=== PATIENT | male | born 1960 | race Caucasian/White ===

== ENCOUNTER 2022-07-01 10:42 | Inpatient (IN) | payer OTHER ==
[~2022-07-01] VITALS: Ht 177 cm; Wt 76.6 kg
[2022-07-01] MEDS ORDERED: EPTIFIBATIDE BOLUS 0 ML IV ONE (11:01)
[2022-07-01] MEDS ORDERED: EPTIFIBATIDE DRIP 0 ML IV ONE (11:01)
[2022-07-01] MEDS ORDERED: LIDOCAINE 1% INJ 20 ML VIAL ONE (11:01)
[2022-07-01] MEDS ORDERED: HEParin (CATH LAB) 2,000 ML IV ONE (11:01)
[2022-07-01] MEDS ORDERED: HEParin 1000 UNIT/ML (10ML VIAL) FOR BOLUS ONE (11:01)
[2022-07-01] MEDS ORDERED: NITRO DRIP 25000 MCG/D5W 0 ML IV ONE (11:02)
--- NOTE | 2022-07-01 11:29 | Consultation-Cardiology ---
HPI-Cardiology Cardiology Consultation: Date of Consultation 07/01/22 Date of Admission Attending Physician Admitting Physician Admitting Physician: Svetlana Burciaga MD Attending Physician: Svetlana Burciaga MD Consulting Physician Tod SANFORD MD HPI: Time Seen by a Provider: 10:50 Chief Complaint: Postcardiac arrest This is a 62-year-old gentleman Who [place]. Apparently patient hit his face and was bleeding as well. According to EMS minimum downtime. Initial rhythm was ventricular fibrillation and he was shocked to sinus tachycardia. ROSC achieved. No family available. Not much History available. And route EMS EKG showed possible ST elevation in lead V2 and V3 therefore patient was accepted directly to the [facility]. Patient was intubated in the field Review of Systems-Cardiology Review of Systems Constitutional: As described under HPI Eyes: As described under HPI Ears/Nose/Throat: As described under HPI Respiratory: As described under HPI Cardiovascular: other (Cardiac) Gastrointestinal: As described under HPI Genitourinary: As described under HPI Musculoskeletal: As describe under HPI Skin: As described under HPI Psychiatric/Neurological: As described under HPI Hematologic: As described under HPI OKZ-Ehixtq-Kmtblq Hx Patient Social History Alcohol Use?: Yes Past Medical History PMH As described under Assessment. Allergies and Home Medications Patient Home Medication List Home Medication List Reviewed: Yes Exam Physical Exam Patient was intubated/ventilated. Dried blood was noted on the face. Chest examination shows bilateral breath sounds. Cardiac examination showed tachycardia Good peripheral pulses Labs Laboratory Tests Test 07/01/22 11:23 Range/Units White Blood Count 12.9 H 4.3-11.0 10^3/uL Red Blood Count 3.62 L 4.30-5.52 10^6/uL Hemoglobin 12.8 L 13.3-17.7 g/dL Hematocrit 37 L 40-54 % Mean Corpuscular Volume 102 H 80-99 fL Mean Corpuscular Hemoglobin 35 H 25-34 pg Mean Corpuscular Hemoglobin Concent 35 32-36 g/dL Red Cell Distribution Width 12.4 10.0-14.5 % Platelet Count 145 130-400 10^3/uL Mean Platelet Volume 9.8 9.0-12.2 fL Immature Granulocyte % (Auto) 1 % Neutrophils (%) (Auto) 89 H 42-75 % Lymphocytes (%) (Auto) 6 L 12-44 % Monocytes (%) (Auto) 4 0-12 % Eosinophils (%) (Auto) 0 0-10 % Basophils (%) (Auto) 0 0-10 % Neutrophils # (Auto) 11.4 H 1.8-7.8 10^3/uL Lymphocytes # (Auto) 0.8 L 1.0-4.0 10^3/uL Monocytes # (Auto) 0.5 0.0-1.0 10^3/uL Eosinophils # (Auto) 0.0 0.0-0.3 10^3/uL Basophils # (Auto) 0.1 0.0-0.1 10^3/uL Immature Granulocyte # (Auto) 0.1 0.0-0.1 10^3/uL ECG Impression ECG Initial ECG Rhythm: V.Fib EKG : Rhythm: S.Tach Comment LBBB Diagnosis/Problems Diagnosis/Problems (1) Ventricular fibrillation Status: Acute A/P-Cardiology Assessment/Admission Diagnosis Ventricular fibrillation, ROSC achieved. Patient is intubated/ventilated Possible STEMI Witnessed arrest. Ventricular fibrillation. Single shock. ROSC achieved. In route EMS EKG showed possible ST elevation in leads V2 and V3 therefore patient was brought directly to the [facility]. Coronary angiography did not show any occlusive coronary artery disease. Normal LV function. Aortogram did not show any aortic dissection. No antiplatelet or anticoagulation was given since the patient was bleeding from his face which was likely due to trauma from collapsing. Patient was already intubated/ventilated. Plan ICU admission. Stat CTA PE protocol Hypothermic protocol All labs were ordered Telemetry ICU, Stat echocardiogram, Patient will likely require an ICD, this decision will be based on neurological recovery. Critically ill patient Tod SANFORD MD July 01, 2022 11:29
[2022-07-01 11:33] LABS: BASOPHILS # (AUTO) 0.1 10^3/uL (0.0-0.1); BASOPHILS % (AUTO) 0 % (0-10); EOSINOPHILS % (AUTO) 0 % (0-10); HEMATOCRIT 37 % (40-54); HEMOGLOBIN 12.8 g/dL (13.3-17.7); LYMPHOCYTES # (AUTO) 0.8 10^3/uL (1.0-4.0); LYMPHOCYTES % (AUTO) 6 % (12-44); MEAN CORPUSCULAR HEMOGLOBIN 35 pg (25-34); MEAN CORPUSCULAR HGB CONC 35 g/dL (32-36); MEAN CORPUSCULAR VOLUME 102 fL (80-99); MEAN PLATELET VOLUME 9.8 fL (9.0-12.2); MONOCYTES # (AUTO) 0.5 10^3/uL (0.0-1.0); MONOCYTES % (AUTO) 4 % (0-12); NEUTROPHILS # (AUTO) 11.4 10^3/uL (1.8-7.8); NEUTROPHILS % (AUTO) 89 % (42-75); PLATELET COUNT 145 10^3/uL (130-400); WHITE BLOOD COUNT 12.9 10^3/uL (4.3-11.0)
[2022-07-01] MEDS ORDERED: PROPOFOL DRIP (ICU) 100 ML IV ONE ×2 (11:36→18:16)
--- NOTE | 2022-07-01 11:40 | Coronary Angiography Report ---
Coronary Angiography Report DATE OF PROCEDURE: 07/01/22 INDICATION: Postcardiac arrest, Possible ACS PREOPERATIVE DIAGNOSIS: Postcardiac arrest, possible ACS POSTOPERATIVE DIAGNOSIS: Ventricular fibrillation, normal coronaries HISTORY: This is a 62-year-old gentleman who [place] and was found to be in ventricular fibrillation. Brief downtime According to the EMS. Defibrillated to sinus tachycardia. ROSC achieved. In route, EMS EKG shows possible ST elevation in leads V2 and V3. Patient was accepted directly to the [facility]. Patient was intubated in the field. PROCEDURES PERFORMED: 1.Coronary angiography. 2.Left heart catheterization. 3. Thoracic aortogram: Medical necessity: Postcardiac arrest to rule out aortic dissection. COMPLICATIONS: None. SPECIMENS: None. ESTIMATED BLOOD LOSS: 10 mL ANESTHESIA: Conscious sedation ANTICOAGULATION: None CONTRAST: 130 cc FLUOROSCOPY: 4.5 minutes FLOUROSCOPY DOSE: 580 mgy PROCEDURE DETAILS: The patient is a 62 male and was brought to the laborer [facility] Directly due to V-fib arrest. Due to an emergency no informed consent was taken. No family available. The patient was draped and prepped in the usual sterile fashion. Access was gained in the right Femoral artery with a 6 Romanian sheath. Coronary angiography and left heart catheterization was performed with the EBU guide catheter, JR4 diagnostic catheter, pigtail. FINDINGS: 1.Left main: Patent 2.LAD: Patent. 3.Left circumflex artery: Patent 4.RCA: Patent 5.Left heart catheterization: Normal LV function with no wall motion abnormalities. No gradients across the aortic valve. Aortic pressure 124/80 mmHg. LV pressure 127/5 mmHg. LVEDP 13 mmHg. 6. Thoracic aortogram: Medical necessity to rule out aortic dissection in a patient with ventricular fibrillation arrest and normal coronaries. No proximal aneurysm or dissection noted. No occlusion noted of the great arteries. CONCLUSIONS: Post V-fib arrest. Normal coronaries. Admit to ICU, stat CT to rule out pulmonary embolism. Hypothermic protocol. Stat echocardiogram. Telemetry ICU Future ICD implantation based on neurological recovery. May Novak MD, FACP, FACC, [facility] Interventional Cardiology Tod NOVAK MD July 01, 2022 11:40
[2022-07-01 11:48] LABS: ALBUMIN 3.5 GM/DL (3.2-4.5); CHLORIDE 103 MMOL/L (98-107); POTASSIUM 3.1 MMOL/L (3.6-5.0); SODIUM 139 MMOL/L (135-145)
[2022-07-01 11:49] LABS: CALCIUM 7.9 MG/DL (8.5-10.1)
[2022-07-01 11:50] LABS: GLUCOSE 136 MG/DL (70-105)
[2022-07-01 11:51] LABS: CARBON DIOXIDE 21 MMOL/L (21-32); PROTHROMBIN TIME PATIENT 13.4 SEC (12.2-14.7)
[2022-07-01 11:52] LABS: BILIRUBIN,TOTAL 0.6 MG/DL (0.1-1.0)
[2022-07-01 11:54] LABS: ALKALINE PHOSPHATASE 113 U/L (40-136); GFR ESTIMATED 105
[2022-07-01 11:55] LABS: BUN/CREATININE RATIO 10
[2022-07-01 11:57] LABS: ALANINE AMINOTRANSFERASE 49 U/L (0-55); MAGNESIUM 1.2 MG/DL (1.6-2.4)
[2022-07-01 12:01] LABS: FIBRIN DEGRADATION PRODUCTS 5.82 UG/ML (0.00-0.49)
[2022-07-01 12:05] LABS: BAND NEUTROPHILS 2 %; BASOPHILS % (MANUAL) 0 %; EOSINOPHILS % (MANUAL) 0 %; LYMPHOCYTES % (MANUAL) 9 %; MONOCYTES % (MANUAL) 2 %; NEUTROPHILS % (MANUAL) 87 %
[2022-07-01] MEDS ORDERED: HYDROmorphone 2 MG/ML VIAL (DILAUDID) ONE (12:05)
--- NOTE | 2022-07-01 12:07 | Tele-ICU Consult ---
History of Present Illness History of Present Illness Date Seen by Provider: July 01, 2022 Time Seen by Provider: 12:07 Date of Admission History of Present Illness (Tele-ICU Physician , consultation as per request of PCP Service provided via interactive audio and video telecommunications E-CARE system to a patient admitted to ICU bed in [facility]. Available chart/ vitals / labs / Images reviewed H&P is from ER notes Patient's information available about PMH, Shx, Fhx allergy reviewed inEMR. ROS as per chart and RN report Now in ICU, hemodynamically stable Video assessment done using teleICU camera, rest of exam as per RN Discussed with RN. Hospital course: - post card arrest , ETT , cath - clear A/P Cardiac arrest outside of hospital - Initial rhythm was V fib and he was shocked to sinus tachycardia ( ROSC time not clear , presumed short - possible ST elevation in lead V2 and V3 therefore patient was accepted directly to the Delivery Director --> s/p cath - clear coronary -No antiplatelet or anticoagulation was given since the patient was bleeding from his face - etiology of arrest not clear- ACS r/out , ECHO pending , lytes checked - other possible causes ? PE , ? PTX , Sz =CTA chest pending Acute resp failure post arrest - intubated 07/01 on the fild - check cxr , Ct , abg S.p fall post arrest - CT head ordered Encephalopathy - will scan head to r/o intracrania reason for collapse , and follow trauma extent as a result of fall - on propofol now , will try to stop after CT done to assess refelxes / respond - will maintain active normothermia (?37.5C) fluid resuscitation follow lytes monitor for Sz BS 140-180 Plans in collaboration with bedside consultants and IM MDs. Discussed with RN to reach out if any questions or concerns A total of 33 minutes of critical care time was devoted to this patient today, required to treat and/or prevent further deterioration of critical care conditi on ( as above ) . I am remotely monitoring this patient from another state. I am unable to do the bedside exam, and history/physical and pertinent information is taken from other notes in the computer and bedside staff. . Allergies and Home Medications Allergies Coded Allergies: No Allergy Information Available (Unverified , 07/01/22) Past Medical/Social/Family Hx Patient Social History Alcohol Use?: Yes Review of Systems Constitutional: see HPI Focused Exam Height, Weight, BMI Height: '" Weight: lbs. oz. kg; BMI Method: Exam Exam Patient acknowledged, consented, and participated in this virtual visit which was conducted using real time audio/video Height & Weight Height: '" Weight: lbs. oz. kg; BMI Method: General Appearance: Other Results Lab Laboratory Tests 07/01/22 11:23 Assessment/Plan Assessment/Plan 1 QIANA STRONG MD July 01, 2022 12:07
--- NOTE | 2022-07-01 12:38 | Diagnostic Imaging Report ---
EXAMINATION: CT head without contrast. TECHNIQUE: Multiple contiguous axial images were obtained through the brain without the use of intravenous contrast. All CT scans use one or more of the following dose optimizing techniques: automated exposure control, MA and/or KvP adjustment based on patient size and exam type or iterative reconstruction. HISTORY: Cardiac arrest COMPARISON: None available. FINDINGS: The ventricles and sulci are normal. No abnormal attenuation of brain parenchyma is present. No acute intracranial hemorrhage or abnormal extra-axial fluid collections are present. No hyperdense vessel. The calvarium is intact. The mastoid air cells are clear. Mucosal thickening of the paranasal sinuses. The orbits are normal. IMPRESSION: 1. No acute intracranial abnormality. Dictated by: Dictated on workstation # [id number]
--- NOTE | 2022-07-01 13:01 | Diagnostic Imaging Report ---
INDICATION: Status post cardiac arrest. No prior studies are available for comparison. ET tube has tip above the landen. The pulmonary arterial system is without evidence of thromboembolism. Pulmonary arterial system is without evidence of central, lobar or segmental filling defects. There appears to be complete collapse of the left lower lobe. There is mucus plugging involving left lower lobe lobar and segmental bronchi. No pericardial or pleural fluid is identified. Minimal infiltrate in the right upper and right lower lobe is noted. The thoracic aorta is normal caliber. There is no dissection. Upper abdomen demonstrates hepatic steatosis. IMPRESSION: 1. No evidence of pulmonary embolism or acute aortic disease. 2. Left lower lobe complete atelectasis due to mucus plugging. 3. Hepatic steatosis. Dictated by: Dictated on workstation # [id number]
--- NOTE | 2022-07-01 13:01 | Diagnostic Imaging Report ---
Indication: Cardiac arrest. Time of Exam: 12:42 PM ET tube has tip just above the landen. NG tube passing the stomach. There appears to be significant atelectasis of the left lower lobe with volume loss in the left hemithorax. Right lung is clear. External pacer overlies right hemithorax. No significant effusion is seen. Impression: Left lower lobe atelectasis. Dictated by: Dictated on workstation # [id number]
[2022-07-01] MEDS: MAGNESIUM 1 GM/100 ML IVPB 100 ML IV SCH ×4 (13:04→15:52)
[2022-07-01] MEDS: POTASSIUM CL 10MEQ/50ML IVPB 50 ML IV SCH ×4 (13:06→15:52)
[2022-07-01 13:15] LABS: ABG BASE EXCESS 1.2 MMOL/L (-2.5-2.5); ABG OXYGEN SATURATION 69 % (94-100); ABG PO2 42 MMHG (79-93)
[2022-07-01 13:19] LABS: ABG PCO2 74 MMHG (35-45); ABG PH 7.21 (7.37-7.43); ALLENS TEST YES-POS; INSPIRED O2 100%; VENTILATOR YES
[2022-07-01] MEDS: RT-ALBUTEROL/IPRATROPIUM 3 ML (DUONEB) VIAL INH SCH ×3 (13:20→22:11)
[2022-07-01 13:36] VITALS: BP 117/83
[2022-07-01 13:44] LABS: AMPHETAMINE SCREEN, URINE NEGATIVE (NEGATIVE); BARBITURATE SCREEN URINE NEGATIVE (NEGATIVE); BENZODIAZEPINES SCREEN URINE NEGATIVE (NEGATIVE); CANNABINOID SCREEN, URINE NEGATIVE (NEGATIVE); COCAINE SCREEN URINE NEGATIVE (NEGATIVE); METHADONE STAT NEGATIVE (NEGATIVE); OPIATE SCREEN URINE NEGATIVE (NEGATIVE); OXYCODONE STAT NEGATIVE (NEGATIVE); PROPOXYPHENE STAT NEGATIVE (NEGATIVE); TRICYCLIC ANTIDEPRESSANTS SCRE NEGATIVE (NEGATIVE)
[2022-07-01] MEDS ORDERED: PIPERACILLIN SODIUM/TAZOBACTAM 4.5 GM in NS (IVPB) 100 ML IV NR (14:00)
--- NOTE | 2022-07-01 14:42 | Cardiology Progress Note ---
Cardiology SOAP Progress Note Subjective: I came back to see the patient in the afternoon and speak to the family. Earlier the family was not available Objective: I&O/Vital Signs 07/01/22 07/01/22 07/01/22 07/01/22 11:44 11:45 11:49 12:00 Pulse 142 141 123 Resp 22 24 B/P (MAP) 205/136 (147) 168/97 (115) Pulse Ox 96 95 94 O2 Delivery Mechanical Ventilator Mechanical Ventilator Mechanical Ventilator Mechanical Ventilator O2 Flow Rate 100.00 100.00 100.00 FiO2 100 07/01/22 07/01/22 07/01/22 07/01/22 12:00 12:42 12:45 13:00 Pulse 120 122 108 104 Resp 37 21 B/P (MAP) 148/89 (107) 87/60 (71) 84/51 (61) Pulse Ox 97 85 75 O2 Delivery Mechanical Ventilator Mechanical Ventilator Mechanical Ventilator O2 Flow Rate 100.00 100.00 100.00 07/01/22 07/01/22 13:19 13:36 Pulse 99 Resp 20 Pulse Ox 98 100 O2 Delivery Mechanical Ventilator O2 Flow Rate 100.00 FiO2 100 Results/Procedures: Labs Laboratory Tests 07/01/22 11:23: White Blood Count 12.9H, Red Blood Count 3.62L, Hemoglobin 12.8L, Hematocrit 37L , Mean Corpuscular Volume 102H, Mean Corpuscular Hemoglobin 35H, Mean Corpuscular Hemoglobin Concent 35, Red Cell Distribution Width 12.4, Platelet Count 145, Mean Platelet Volume 9.8, Immature Granulocyte % (Auto) 1, Neutrophils (%) (Auto) 89H, Lymphocytes (%) (Auto) 6L, Monocytes (%) (Auto) 4, Eosinophils (%) (Auto) 0, Basophils (%) (Auto) 0, Neutrophils # (Auto) 11.4H, Lymphocytes # (Auto) 0.8L, Monocytes # (Auto) 0.5, Eosinophils # (Auto) 0.0, Basophils # (Auto) 0.1, Immature Granulocyte # (Auto) 0.1, Neutrophils % (Manual) 87, Lymphocytes % (Manual) 9, Monocytes % (Manual) 2, Eosinophils % (Manual) 0, Basophils % (Manual) 0, Band Neutrophils 2, Macrocytosis SLIGHT, P rothrombin Time 13.4, INR Comment 1.0, Activated Partial Thromboplast Time 30, D-Dimer 5.82H, Sodium Level 139, Potassium Level 3.1L, Chloride Level 103, Carbon Dioxide Level 21, Anion Gap 15H, Blood Urea Nitrogen 7, Creatinine 0.70, Estimat Glomerular Filtration Rate 105, BUN/Creatinine Ratio 10, Glucose Level 136H, Calcium Level 7.9L, Corrected Calcium 8.3L, Magnesium Level 1.2L, Total Bilirubin 0.6, Aspartate Amino Transf (AST/SGOT) 155H, Alanine Aminotransferase (ALT/SGPT) 49, Alkaline Phosphatase 113, Troponin I < 0.028, B-Type Natriuretic Peptide 108.7H, Total Protein 6.0L, Albumin 3.5, Serum Alcohol < 10 07/01/22 13:05: Urine Opiates Screen NEGATIVE, Urine Oxycodone Screen NEGATIVE, Urine Methadone Screen NEGATIVE, Urine Propoxyphene Screen NEGATIVE, Urine Barbiturates Screen NEGATIVE, Ur Tricyclic Antidepressants Screen NEGATIVE, Urine Phencyclidine Screen NEGATIVE, Urine Amphetamines Screen NEGATIVE, Urine Methamphetamines Screen NEGATIVE, Urine Benzodiazepines Screen NEGATIVE, Urine Cocaine Screen NEGATIVE, Urine Cannabinoids Screen NEGATIVE 07/01/22 13:10: Blood Gas Puncture Site L RADIAL, Blood Gas Patient Temperature 36.0, Arterial Blood pH 7.21*L, Arterial Blood Partial Pressure CO2 74*H, Arterial Blood Partial Pressure O2 42L, Arterial Blood HCO3 29H, Arterial Blood Total CO2 31.0, Arterial Blood Oxygen Saturation 69L, Arterial Blood Base Excess 1.2, Rubén Test YES-POS, Blood Gas Ventilator Setting YES, Blood Gas Inspired Oxygen 100% A/P: Assessment/Dx: I came to follow-up the patient mid afternoon and also talk to the family who were not available earlier and have just come to the hospital. Ventricular fibrillation, ROSC achieved. Patient is intubated/ventilated Possible STEMI, negative first troponin. Witnessed arrest. Ventricular fibrillation. Single shock. ROSC achieved. In route EMS EKG showed possible ST elevation in leads V2 and V3 therefore patient was brought directly to the [facility]. Coronary angiography did not show any occlusive coronary artery disease. Preserved LV function, however echocardiogram needs to be done. Aortogram did not show any aortic dissection. No antiplatelet or anticoagulation was given since the patient was bleeding from his face which was likely due to trauma from collapsing. Patient was already intubated/ventilated. Echocardiogram shows EF of 35 to 40%. Global hypokinesis. No LV thrombus noted. No significant valvular heart disease. No pericardial effusion. Acute hypercapnic respiratory failure, CT chest shows left lower lobe collapse/atelectasis. No PE. Positive D-dimer. According to patient is a heavy smoker and alcoholic. Significant electrolyte abnormalities with hypokalemia and hypomagnesemia. Will need repletion. CT head did not show any significant active intracranial abnormality. Discussed at length with the and another family member. Critical situation with guarded prognosis. They understand. Plan: As above. Thank you for your consultation. Please call me if you have any questions. May Novak MD, FACP, FACC, FSCAI, FHRS, CCDS Interventional Cardiology Cardiac Electrophysiology Vascular Medicine and Endovascular Interventions Diagnosis/Problems Diagnosis/Problems (1) Ventricular fibrillation Status: Acute Tod NOVAK MD July 01, 2022 14:42
[2022-07-01 15:48] LABS: ABG BASE EXCESS 2.1 MMOL/L (-2.5-2.5); ABG OXYGEN SATURATION 98 % (94-100); ABG PCO2 51 MMHG (35-45); ABG PO2 105 MMHG (79-93); ABG TCO2 29.2 MMOL/L (21.0-31.0); ALLENS TEST YES-POS; INSPIRED O2 100%; VENTILATOR YES
[2022-07-01 15:50] LABS: ABG PH 7.34 (7.37-7.43)
--- NOTE | 2022-07-01 15:53 | Consultation - Surgery ---
History of Present Illness History of Present Illness Patient Consulted On(kalen/time) 07/01/22 15:48 Time Seen by Provider: 15:41 History of Present Illness Surgery asked to consult regarding Mucous Plugging, possible Bronchoscopy HPI per Cardiology: This is a 62-year-old gentleman [place] Apparently patient hit his face and was bleeding as well. According to EMS minimum downtime. Initial rhythm was ventricular fibrillation and he was shocked to sinus tachycardia. ROSC achieved. No family available. Not much History available. And route EMS EKG showed possible ST elevation in lead V2 and V3 therefore patient was accepted directly to the [facility]. Patient was intubated in the field. When I saw him he was intubated and sedated. I talked to family who stated he had been having chest pain for 2 weeks, he also had multiple dental abscesses. However, he cancelled dental appt and did not pickle cutter ABX. Allergies and Home Medications Allergies Coded Allergies: No Allergy Information Available (Unverified , 07/01/22) Patient Home Medication List Home Medication List Reviewed: Yes Past Rqsdblk-Txvmuu-Tgxouc Hx Patient Social History Smoking Status: Current Everyday Smoker (2-3 ppd) Alcohol Use?: Yes (whiskey) Respiratory History of Respiratory Disorde: Yes Respiratory Disorders: COPD Cardiovascular History of Cardiac Disorders: Yes Cardiac Disorders: Angina, Hypertension Neurological History of Neurological Disord: No Genitourinary History of Genitourinary Disor: No Family Medical History Significant Family History: Cancer, Diabetes (parents), Hypertension (parents), Other Conditions/Hx (Denied anyone in the family with hx of NC) Review of Systems-General ROS-Unable to Obtain: pt sedated and intubated, got a few from family EENTM: other (dental abscesses) Respiratory: No short of breath Cardiovascular: chest pain Physical Exam-General Problems Physical Exam Vital Signs Vital Signs - First Documented 07/01/22 07/01/22 11:44 11:45 Pulse 142 Resp 22 B/P (MAP) 205/136 (147) Pulse Ox 96 O2 Delivery Mechanical Ventilator O2 Flow Rate 100.00 Capillary Refill : Less Than 3 Seconds General Appearance: WD/WN, other (sedated and intubated) Eyes: Bilateral Eye PERRL HEENT: other (ET tube in place, poor dentition) Neck: supple Respiratory: decreased breath sounds (left lung, especially base (essentially no breath sounds at base) and dullness to percussion), other (on vent) Cardiovascular: no murmur, tachycardia Gastrointestinal: soft, no organomegaly; No distended Extremities: no pedal edema, normal capillary refill Neurologic/Psychiatric: other (sedated and intubated) Skin: normal color, warm/dry, other (abrasion on nose) Lymphatic: no adenopathy (neck, axilla or groin) Data Review Labs Laboratory Tests 07/01/22 11:23: White Blood Count 12.9H, Red Blood Count 3.62L, Hemoglobin 12.8L, Hematocrit 37L , Mean Corpuscular Volume 102H, Mean Corpuscular Hemoglobin 35H, Mean Corpuscular Hemoglobin Concent 35, Red Cell Distribution Width 12.4, Platelet Count 145, Mean Platelet Volume 9.8, Immature Granulocyte % (Auto) 1, Neutrophils (%) (Auto) 89H, Lymphocytes (%) (Auto) 6L, Monocytes (%) (Auto) 4, Eosinophils (%) (Auto) 0, Basophils (%) (Auto) 0, Neutrophils # (Auto) 11.4H, Lymphocytes # (Auto) 0.8L, Monocytes # (Auto) 0.5, Eosinophils # (Auto) 0.0, Basophils # (Auto) 0.1, Immature Granulocyte # (Auto) 0.1, Neutrophils % (Manual) 87, Lymphocytes % (Manual) 9, Monocytes % (Manual) 2, Eosinophils % (Manual) 0, Basophils % (Manual) 0, Band Neutrophils 2, Macrocytosis SLIGHT, Prothrombin Time 13.4, INR Comment 1.0, Activated Partial Thromboplast Time 30, D-Dimer 5.82H, Sodium Level 139, Potassium Level 3.1L, Chloride Level 103, Carbon Dioxide Level 21, Anion Gap 15H, Blood Urea Nitrogen 7, Creatinine 0.70, Estimat Glomerular Filtration Rate 105, BUN/Creatinine Ratio 10, Glucose Level 136H, Calcium Level 7.9L, Corrected Calcium 8.3L, Magnesium Level 1.2L, Total Bilirubin 0.6, Aspartate Amino Transf (AST/SGOT) 155H, Alanine Aminotransferase (ALT/SGPT) 49, Alkaline Phosphatase 113, Troponin I < 0.028, B-Type Natriuretic Peptide 108.7H, Total Protein 6.0L, Albumin 3.5, Serum Alcohol < 10 07/01/22 13:05: Urine Opiates Screen NEGATIVE, Urine Oxycodone Screen NEGATIVE, Urine Methadone Screen NEGATIVE, Urine Propoxyphene Screen NEGATIVE, Urine Barbiturates Screen NEGATIVE, Ur Tricyclic Antidepressants Screen NEGATIVE, Urine Phencyclidine Screen NEGATIVE, Urine Amphetamines Screen NEGATIVE, Urine Methamphetamines Screen NEGATIVE, Urine Benzodiazepines Screen NEGATIVE, Urine Cocaine Screen NEGATIVE, Urine Cannabinoids Screen NEGATIVE 07/01/22 13:10: Blood Gas Puncture Site L RADIAL, Blood Gas Patient Temperature 36.0, Arterial Blood pH 7.21*L, Arterial Blood Partial Pressure CO2 74*H, Arterial Blood Partial Pressure O2 42L, Arterial Blood HCO3 29H, Arterial Blood Total CO2 31.0, Arterial Blood Oxygen Saturation 69L, Arterial Blood Base Excess 1.2, Rubén Test YES-POS, Blood Gas Ventilator Setting YES, Blood Gas Inspired Oxygen 100% 07/01/22 15:43: Radiology Date of Exam:07/01/22 CT ANGIO CHEST W (R/O PE) INDICATION: Status post cardiac arrest. No prior studies are available for comparison. ET tube has tip above the landen. The pulmonary arterial system is without evidence of thromboembolism. Pulmonary arterial system is without evidence of central, lobar or segmental filling defects. There appears to be complete collapse of the left lower lobe. There is mucus plugging involving left lower lobe lobar and segmental bronchi. No pericardial or pleural fluid is identified. Minimal infiltrate in the right upper and right lower lobe is noted. The thoracic aorta is normal caliber. There is no dissection. Upper abdomen demonstrates hepatic steatosis. IMPRESSION: 1. No evidence of pulmonary embolism or acute aortic disease. 2. Left lower lobe complete atelectasis due to mucus plugging. 3. Hepatic steatosis. Dictated by: Dictated on workstation # [id number] Dict: 07/01/22 1248 Trans: 07/01/22 1501 CV [id number] Interpreted by: LEROY RUFF MD Electronically signed by: LEROY RUFF MD 07/01/22 1505 Date of Exam:07/01/22 CHEST 1 VIEW, AP/PA ONLY Indication: Cardiac arrest. Time of Exam: 12:42 PM ET tube has tip just above the landen. NG tube passing the stomach. There appears to be significant atelectasis of the left lower lobe with volume loss in the left hemithorax. Right lung is clear. External pacer overlies right hemithorax. No significant effusion is seen. Impression: Left lower lobe atelectasis. Dictated by: Dictated on workstation # [id number] Dict: 07/01/22 1251 Trans: 07/01/22 1500 CVB [id number] Interpreted by: LEROY RUFF MD Electronically signed by: LEROY RUFF MD 07/01/22 1500 Assessment/Plan Assessment/Plan Assessment/Plan Mucous Plugging probably causing Left Lobe Atelectasis S/P witnessed cardiac arrest Hypokalemia Hypomagnesemia Tachycardia Pt is 100% on vent right now, RT is going to try and do some suctioning to clear left lung. Will repeat CXR in am and if it doesn't look better will plan on doing a bronchoscopy. Replace electrolytes. EDGARDO AVILA DO July 01, 2022 15:53
[2022-07-01] MEDS ORDERED: inSUlin ASPART (NovoLOG) 1 UNIT/0.01 ML (CHARGE PER UNIT) SC SCH (16:00)
[2022-07-01] MEDS ORDERED: NS IV 500 ML 500 ML IV PRN (17:45)
[2022-07-01] MEDS ORDERED: LORazepam INJ 2 MG/ML (ATIVAN) VIAL ONE (17:47)
[2022-07-01] MEDS ORDERED: SENNA W/DOCUSATE (SENOKOT S) TABLET PO PRN (18:00)
[2022-07-01] MEDS ORDERED: ANTACID SUSP 30 ML UDC (MYLANTA) PO PRN (18:00)
[2022-07-01] MEDS ORDERED: ONDANSETRON 4 MG (ZOFRAN) ORAL DISSOLVE TAB SL PRN (18:00)
[2022-07-01] MEDS ORDERED: LORazepam INJ 2 MG/ML (ATIVAN) VIAL IM/IV PRN (18:00)
[2022-07-01] MEDS ORDERED: ONDANSETRON 4 MG/2 ML (SDV) Z0FRAN IV PRN (18:00)
[2022-07-01] MEDS: inSUlin ASPART (NovoLOG) 1 UNIT/0.01 ML (CHARGE PER UNIT) SC SCH (18:02)
[2022-07-01] MEDS: LORazepam INJ 2 MG/ML (ATIVAN) VIAL IVP SCH ×2 (18:02→21:12)
[2022-07-01] MEDS: PROPOFOL DRIP (ICU) 100 ML IV SCH (18:20)
[2022-07-01 18:35] VITALS: BP 90/61
[2022-07-01 18:36] LABS: CHLORIDE 104 MMOL/L (98-107); POTASSIUM 4.3 MMOL/L (3.6-5.0); SODIUM 138 MMOL/L (135-145)
[2022-07-01 18:38] LABS: CALCIUM 8.2 MG/DL (8.5-10.1); GLUCOSE 105 MG/DL (70-105); TRIGLYCERIDES 130 MG/DL (<150)
[2022-07-01 18:40] LABS: CARBON DIOXIDE 23 MMOL/L (21-32)
[2022-07-01 18:42] LABS: CREATININE SERUM 0.66 MG/DL (0.60-1.30); GFR ESTIMATED 107
[2022-07-01 18:43] LABS: BUN/CREATININE RATIO 11
[2022-07-01 18:45] LABS: MAGNESIUM 2.5 MG/DL (1.6-2.4)
--- NOTE | 2022-07-01 18:52 | History & Physical-Hospitalist ---
History of Present Illness HPI/Chief Complaint Marcos Crawford is a 62 year old male with PMH alcohol abuse, tobacco abuse, who presented after a cardiac arrest. [place] the [place] and was about to play in a tournament. He had reportedly been feeling bad for several days. His teeth are "all rotten" and he was scheduled to have his teeth pulled next Sunday. He obtained and was taking an antibiotic from a farm store. His is unsure what the antibiotics was. She does not think they recommended he take antibiotics. He had been having body aches. She reports that he told her he felt like he was going to . He had been reporting chest pain. He did not want to go to the [employer] but he had already paid for it. He is an every day drinker. His daughter says he drinks "a lot". He reportedly gets shaky when he hasn't had a drink. She does not remember him going a day without a drink. He has never been admitted to the hospital with alcohol withdrawal. He has no known medical conditions. He does not take any medications daily. EMS found him in ventricular fibrillation. ROSC was quickly obtained. He was thought to have ST elevations on the EKG and was taken directly to the labor economics professor. Dr. Novak performed left heart cath which showed non-obstructive coronary artery disease and no other cause for his arrest. He was admitted to the ICU. Dr. Novak contacted the hospitalist service to assume care of the patient. Labs and imaging were ordered. TeleICU was consulted. Source: family Exam Limitations: clinical condition Date Seen 07/01/22 Time Seen by a Provider: 17:45 Attending Physician No,Local Physician PCP Admitting Physician: Svetlana Anglin MD Attending Physician: Svetlana Anglin MD Referring Physician Date of Admission July 01, 2022 at 11:28 Home Medications & Allergies Home Medications Reviewed patient Home Medication Reconciliation performed by pharmacy medication reconciliations rv service technician and/or nursing. Patients Allergies have been reviewed. Allergies Allergies Coded Allergies No Allergy Information Available (Unverified07/01/22) Past Kvxlbrk-Aurtms-Culafc Hx Patient Social History Tobacco Use?: Yes Tobacco type used: Cigarettes Smoking Status: Current Everyday Smoker Use of E-Cig and/or Vaping dev: No Substance use?: Yes Substance type: Nicotine Substance frequency: Daily Alcohol Use?: Yes Alcohol type: Beer, Hard Liquor Alcohol Frequency: Daily Pt feels they are or have been: Unable to obtain Current Status Advance Directives: No Communicates: Unable To Communicate Implanted or Applied Medical D: None Past Medical History COPD Angina, Hypertension Family Medical History Cancer, Diabetes (parents), Hypertension (parents), Other Conditions/Hx (Denied anyone in the family with hx of ID) Review of Systems Constitutional: malaise Respiratory: no symptoms reported Cardiovascular: chest pain Gastrointestinal: no symptoms reported Physical Exam Physical Exam Vital Signs Vital Signs - First Documented 07/01/22 07/01/22 07/01/22 07/01/22 11:40 11:44 11:45 16:00 Temp 36.0 Pulse 160 Resp 22 B/P (MAP) 210/85 Pulse Ox 96 O2 Delivery Mechanical Ventilator O2 Flow Rate 100.00 Capillary Refill : Less Than 3 Seconds Height, Weight, BMI Height: '" Weight: lbs. oz. kg; 24.25 BMI Method: General Appearance: No Apparent Distress, WD/WN HEENT: Other (nystagmus, endotracheal tube in place) Neck: Normal Inspection, Supple Respiratory: Lungs Clear, Normal Breath Sounds, No Respiratory Distress Cardiovascular: Regular Rate, Rhythm, No Murmur Gastrointestinal: Normal Bowel Sounds, Soft Extremity: Normal Inspection, No Pedal Edema Neurologic/Psychiatric: Alert, Other (sedated) Skin: Normal Color, Warm/Dry Results Results/Procedures Labs Laboratory Tests 07/01/22 11:23 07/01/22 18:12 Patient resulted labs reviewed. Imaging: Reviewed Imaging Films, Reviewed Imaging Report Assessment/Plan Admission Diagnosis Cardiac arrest with ventricular fibrillation Admission Status: Inpatient Order (span 2 midnights) Reason for Inpatient Admission: Cardiac arrest Respiratory failure Assessment and Plan Cardiac arrest Ventricular fibrillation Acute HFrEF Acute respiratory failure with hypoxia and hypercapnia Endotracheally intubated Hypokalemia Hypomagnesemia Alcohol dependence Elevated LFTs Hepatic steatosis Left lower lobe collapse Mucus plugging Misuse of medication Tobacco abuse Cardiology following, left heart cath without obstructive coronary artery disease Moderate electrolyte abnormalities, monitor and correct as needed CXR with left lower lobe collapse CT chest showed left lower lobe atelectasis, hepatic steatosis, no PE or infiltrate Surgery consulted, case discussed with Dr. Isha ARMSTRONG protocol TeleICU consulted, managing ventilator Started on Zosyn Blood cultures pending Taking unknown antibiotic intended for animal use obtained from farm store CIWA protocol ordered, scheduled Ativan, vitamin replacement DVT prophylaxis: Lovenox Critical Care Critically Ill Patient Diagnosis/Problems Diagnosis/Problems (1) Cardiac arrest with ventricular fibrillation Status: Acute (2) Acute HFrEF (heart failure with reduced ejection fraction) Status: Acute (3) Acute respiratory failure with hypoxia and hypercapnia Status: Acute (4) Mucus plug in respiratory tract Status: Acute (5) Collapse of left lung Status: Acute (6) Hepatic steatosis Status: Acute (7) Elevated LFTs Status: Acute (8) Alcohol dependence Status: Acute Qualifiers: Substance use status: in withdrawal Complication of substance-induced condition: with unspecified complication Qualified Codes: F10.239 - Alcohol dependence with withdrawal, unspecified (9) Tobacco abuse Status: Chronic (10) Hypokalemia Status: Acute (11) Hypomagnesemia Status: Acute (12) Endotracheally intubated Status: Acute (13) Misuse of medication Status: Acute SVETLANA ANGLIN MD July 01, 2022 18:52
[2022-07-01] MEDS ORDERED: NICOTINE 14 MG (NICODERM) PATCH TD ONE (19:45)
[2022-07-01] MEDS ORDERED: D5 1/2 NS W/KCL 20 MEQ/L 1,000 ML IV ONE (19:48)
[2022-07-01] MEDS: D5 1/2 NS W/KCL 20 MEQ/L 1,000 ML IV SCH (19:51)
[2022-07-01] MEDS: PIPERACILLIN SODIUM/TAZOBACTAM 4.5 GM in NS (IVPB) 100 ML IV SCH (19:52)
[2022-07-01] MEDS: ENOXAPARIN 40 MG/0.4 ML (LOVENOX) SYR SC SCH (21:12)
[2022-07-01 22:11] VITALS: BP 98/64
[2022-07-02] MEDS: inSUlin ASPART (NovoLOG) 1 UNIT/0.01 ML (CHARGE PER UNIT) SC SCH ×5 (00:03→23:47)
[2022-07-02] MEDS: PROPOFOL DRIP (ICU) 100 ML IV SCH ×5 (01:06→20:58)
[2022-07-02] MEDS: RT-ALBUTEROL/IPRATROPIUM 3 ML (DUONEB) VIAL INH SCH ×6 (01:49→21:43)
[2022-07-02] MEDS: LORazepam INJ 2 MG/ML (ATIVAN) VIAL IVP SCH ×6 (01:55→21:47)
[2022-07-02] MEDS: D5 1/2 NS W/KCL 20 MEQ/L 1,000 ML IV SCH ×4 (02:20→21:06)
[2022-07-02] MEDS ORDERED: fentaNYL INJ 100 MCG/2 ML AMP IVP ONE (02:30)
[2022-07-02] MEDS ORDERED: fentaNYL PCA 1,000 MCG/100 ML IV SCH (02:30)
[2022-07-02] MEDS ORDERED: fentaNYL INJ 100 MCG/2 ML AMP ONE (02:32)
[2022-07-02] MEDS: fentaNYL DRIP PRE-MIX 250 ML IV SCH ×2 (02:52→21:06)
[2022-07-02] MEDS: PIPERACILLIN SODIUM/TAZOBACTAM 4.5 GM in NS (IVPB) 100 ML IV SCH ×3 (03:57→20:05)
[2022-07-02 04:53] LABS: ABG BASE EXCESS 0.9 MMOL/L (-2.5-2.5); ABG OXYGEN SATURATION 99 % (94-100); ABG PCO2 44 MMHG (35-45); ABG PH 7.38 (7.37-7.43); ABG PO2 121 MMHG (79-93)
[2022-07-02 04:54] LABS: ALLENS TEST YES-POS; INSPIRED O2 50%
[2022-07-02 04:55] LABS: PATIENT TEMP 36.4; VENTILATOR YES
[2022-07-02] MEDS: THIAMINE 100 MG (VITAMIN B-1) TAB PO SCH (05:57)
[2022-07-02 06:02] LABS: ALBUMIN 3.3 GM/DL (3.2-4.5); BILIRUBIN,TOTAL 0.6 MG/DL (0.1-1.0); CALCIUM 8.1 MG/DL (8.5-10.1); CREATININE SERUM 0.68 MG/DL (0.60-1.30); MAGNESIUM 2.1 MG/DL (1.6-2.4); TOTAL PROTEIN 5.8 GM/DL (6.4-8.2)
[2022-07-02] MEDS: KCL 20 MEQ TAB (K-DUR) PO SCH (06:06)
[2022-07-02] MEDS: POTASSIUM CL 10MEQ/50ML IVPB 50 ML IV SCH (06:06)
[2022-07-02] MEDS: MAGNESIUM 1 GM/100 ML IVPB 100 ML IV SCH (06:06)
[2022-07-02 06:23] VITALS: BP 117/83
[2022-07-02 07:36] LABS: BASOPHILS % (AUTO) 0 % (0-10); EOSINOPHILS % (AUTO) 0 % (0-10); HEMATOCRIT 34 % (40-54); HEMOGLOBIN 11.7 g/dL (13.3-17.7); LYMPHOCYTES # (AUTO) 0.7 10^3/uL (1.0-4.0); LYMPHOCYTES % (AUTO) 7 % (12-44); MEAN CORPUSCULAR HEMOGLOBIN 35 pg (25-34); MEAN CORPUSCULAR HGB CONC 34 g/dL (32-36); MEAN CORPUSCULAR VOLUME 103 fL (80-99); MEAN PLATELET VOLUME 10.6 fL (9.0-12.2); MONOCYTES # (AUTO) 0.4 10^3/uL (0.0-1.0); MONOCYTES % (AUTO) 5 % (0-12); NEUTROPHILS # (AUTO) 8.4 10^3/uL (1.8-7.8); NEUTROPHILS % (AUTO) 88 % (42-75); PLATELET COUNT 133 10^3/uL (130-400); WHITE BLOOD COUNT 9.6 10^3/uL (4.3-11.0)
--- NOTE | 2022-07-02 07:52 | Diagnostic Imaging Report ---
EXAMINATION: Chest 1 view HISTORY: Intubated COMPARISON: 07/01/2022 FINDINGS: Endotracheal tube tip terminates 6 cm above the landen. Gastric tube tip terminates below the field of view. There is improved aeration of the left lung. No pneumothorax. There is mild residual left base atelectasis. Heart size is normal. IMPRESSION: 1. Improved aeration left lung with mild residual left base atelectasis. Dictated by: Dictated on workstation # [id number]
[2022-07-02] MEDS: PANTOPRAZOLE 40 MG (PROTONIX) VIAL IV SCH (08:26)
[2022-07-02] MEDS: THIAMINE INJECTION 100 MG, FOLIC ACID INJECTION 1 MG, MAGNESIUM SULFATE 2 GM, VITAMIN M... IV SCH ×5 (08:26)
[2022-07-02] MEDS: NICOTINE 14 MG (NICODERM) PATCH TD SCH (08:26)
[2022-07-02] MEDS: FOLIC ACID 1 MG TAB PO SCH (08:26)
--- NOTE | 2022-07-02 08:37 | Tele-ICU Progress Note ---
Subjective Date Seen by a Provider: July 02, 2022 Time Seen by a Provider: 08:32 Subjective/Events-last exam (Tele-ICU Physician , Progress Note ) Service provided via interactive audio and video telecommunications E-CARE system to a patient admitted to ICU bed in [facility]. Patient is seen today due to persistent need of ICU care Available chart/ vitals / labs / Images reviewed Video assessment done using teleICU camera, rest of exam as per RN Discussed with RN 62 M admitted for out of hospital CP arrest while golfing, witnessed arrest and CPR started right away, initial rhythm was V fib, shocked, not clear what ROSC time is, went to CCL but coronaries clean, CTA did not show pulm emb Now on vent, CXR shows resolved left lung atelectasis, mild hyperinflation, ET is 6 cm above landen Vent settings, AC 20, Vt 560, FiO2 35%, PEEP 8, on active normothermia, CT head showed no active process ABG today 7.38/44/121 on IV Propofol @ 40, IV Fentanyl @ 50 Pt can follow commands, moves all 4 extremities, no Sz activity, no myoclonus Has cough reflex, not much secretions, Sepsis Event Evaluation Height, Weight, BMI Height: '" Weight: lbs. oz. kg; 24.64 BMI Method: Exam Exam Patient acknowledged, consented, and participated in this virtual visit which was conducted using real time audio/video Vital Signs Date Time Temp Pulse Resp B/P (MAP) Pulse Ox O2 Delivery O2 Flow Rate FiO2 07/02/22 08:00 85 17 121/73 (91) 99 Mechanical Ventilator 90.00 07/02/22 07:37 36.9 07/02/22 07:00 87 23 119/70 (86) 100 Mechanical Ventilator 90.00 07/02/22 07:00 88 07/02/22 06:23 85 20 100 35 07/02/22 06:11 86 85/62 07/02/22 06:00 88 85/62 (70) 100 Mechanical Ventilator 90.00 07/02/22 05:33 94 105/74 07/02/22 05:02 94 105/74 07/02/22 05:00 92 10 105/74 (84) 100 Mechanical Ventilator 90.00 07/02/22 04:00 100 Mechanical Ventilator 50 07/02/22 04:00 95 21 108/74 (85) 100 Mechanical Ventilator 90.00 07/02/22 04:00 92 100/75 07/02/22 03:07 36.7 07/02/22 03:00 98 26 117/81 (93) 100 Mechanical Ventilator 90.00 07/02/22 03:00 96 117/81 07/02/22 02:52 104 137/96 07/02/22 02:50 97 92/72 07/02/22 02:40 97 07/02/22 02:30 98 07/02/22 02:20 104 137/96 07/02/22 02:10 105 07/02/22 02:00 98 16 128/89 (102) 97 Mechanical Ventilator 90.00 07/02/22 01:56 104 122/87 07/02/22 01:51 98 20 100 60 07/02/22 01:30 102 07/02/22 01:20 105 07/02/22 01:10 100 120/90 07/02/22 01:06 97 124/80 07/02/22 01:00 94 32 118/83 (95) 100 Mechanical Ventilator 90.00 07/02/22 00:25 96 07/02/22 00:00 98 36 124/80 (95) 100 Mechanical Ventilator 90.00 07/01/22 23:59 99 Mechanical Ventilator 60 07/01/22 23:22 36.8 07/01/22 23:00 97 27 101/76 (84) 97 Mechanical Ventilator 90.00 07/01/22 22:20 92 98/64 07/01/22 22:11 92 20 100 70 07/01/22 22:00 94 22 104/78 (87) 100 Mechanical Ventilator 90.00 07/01/22 21:00 96 20 98/70 (79) 100 Mechanical Ventilator 90.00 07/01/22 20:00 98 Mechanical Ventilator 70 07/01/22 20:00 36.4 07/01/22 20:00 93 20 92/71 (78) 100 Mechanical Ventilator 90.00 07/01/22 19:00 87 20 96/73 (81) 100 Mechanical Ventilator 90.00 07/01/22 18:59 87 07/01/22 18:35 88 20 100 70 07/01/22 18:20 91 92/67 07/01/22 18:00 91 20 93/69 (77) 100 Mechanical Ventilator 90.00 07/01/22 17:00 93 20 115/78 (90) 100 Mechanical Ventilator 90.00 07/01/22 16:58 Mechanical Ventilator 90.00 07/01/22 16:32 100 Mechanical Ventilator 07/01/22 16:00 93 20 100/63 (71) 100 Mechanical Ventilator 100.00 07/01/22 16:00 36.0 07/01/22 15:00 103 22 96/60 (69) 98 Mechanical Ventilator 100.00 07/01/22 14:00 102 105/79 (88) 100 Mechanical Ventilator 100.00 07/01/22 13:36 99 20 100 100 07/01/22 13:19 98 Mechanical Ventilator 100.00 07/01/22 13:00 104 21 84/51 (61) 75 Mechanical Ventilator 100.00 07/01/22 12:45 108 87/60 (71) 85 Mechanical Ventilator 100.00 07/01/22 12:42 122 07/01/22 12:00 120 37 148/89 (107) 97 Mechanical Ventilator 100.00 07/01/22 12:00 94 Mechanical Ventilator 100 07/01/22 11:49 123 24 168/97 (115) 95 Mechanical Ventilator 100.00 07/01/22 11:45 141 22 96 Mechanical Ventilator 100.00 07/01/22 11:44 142 205/136 (147) Mechanical Ventilator 100.00 07/01/22 11:40 160 210/85 I & O 07/02/22 07:00 Intake Total 1900 ml Output Total 1575 ml Balance 325 ml Height & Weight Height: '" Weight: lbs. oz. kg; 24.64 BMI Method: General Appearance: No Apparent Distress, WD/WN HEENT: Other (nystagmus, endotracheal tube in place) Neck: Normal Inspection, Supple Respiratory: Lungs Clear, Normal Breath Sounds, No Respiratory Distress, Decreased Breath Sounds, Rhonci Cardiovascular: Regular Rate, Rhythm, No Murmur Capillary Refill: Less Than 3 Seconds Gastrointestinal: non tender, soft, no organomegaly; No distended Extremity: Normal Inspection, No Pedal Edema Neurologic/Psychiatric: Alert, Other (sedated but does follow commands, can squeeze hands, responds yes or now, pupils react to light) Skin: Normal Color, Warm/Dry Results Lab Laboratory Tests 07/01/22 11:23 5/27/23 18:12 07/02/22 04:38 Assessment/Plan Assessment/Plan s/p V fib arrest-will continue on vent, cut down on sedation, CXR shows increased volume on left Appears neurologically intact Will try SBT Critical Care: Ventilator Management Time spent with patient (mins): 30 BILL NIETO MD July 02, 2022 08:37
[2022-07-02 08:58] VITALS: BP 116/69
--- NOTE | 2022-07-02 13:55 | Progress Note - Surgery ---
Subjective Time Seen by a Provider: 10:58 Subjective/Events-last exam Pt seen and examined, sedated and intubated. Review of Systems pt intubated Objective Exam Vital Signs Date Time Temp Pulse Resp B/P (MAP) Pulse Ox O2 Delivery O2 Flow Rate FiO2 07/02/22 13:00 89 115/47 (55) 98 Mechanical Ventilator 30.00 07/02/22 12:49 86 07/02/22 12:01 36.5 07/02/22 12:00 86 17 130/71 (93) 98 Mechanical Ventilator 30.00 07/02/22 11:58 99 Mechanical Ventilator 30 07/02/22 11:17 90 123/67 07/02/22 11:12 Mechanical Ventilator 30.00 07/02/22 11:00 90 18 123/67 (87) 98 Mechanical Ventilator 90.00 07/02/22 10:00 86 31 143/127 (129) 97 Mechanical Ventilator 90.00 07/02/22 09:00 81 20 116/69 (92) 100 Mechanical Ventilator 90.00 07/02/22 08:58 83 21 100 35 07/02/22 08:00 85 17 121/73 (91) 99 Mechanical Ventilator 90.00 07/02/22 07:48 100 Mechanical Ventilator 35 07/02/22 07:37 36.9 07/02/22 07:00 87 23 119/70 (86) 100 Mechanical Ventilator 90.00 07/02/22 07:00 88 07/02/22 06:23 85 20 100 35 07/02/22 06:11 86 85/62 07/02/22 06:00 88 85/62 (70) 100 Mechanical Ventilator 90.00 07/02/22 05:33 94 105/74 07/02/22 05:02 94 105/74 07/02/22 05:00 92 10 105/74 (84) 100 Mechanical Ventilator 90.00 07/02/22 04:00 100 Mechanical Ventilator 50 07/02/22 04:00 95 21 108/74 (85) 100 Mechanical Ventilator 90.00 07/02/22 04:00 92 100/75 07/02/22 03:07 36.7 07/02/22 03:00 98 26 117/81 (93) 100 Mechanical Ventilator 90.00 07/02/22 03:00 96 117/81 07/02/22 02:52 104 137/96 07/02/22 02:50 97 92/72 07/02/22 02:40 97 07/02/22 02:30 98 07/02/22 02:20 104 137/96 07/02/22 02:10 105 07/02/22 02:00 98 16 128/89 (102) 97 Mechanical Ventilator 90.00 07/02/22 01:56 104 122/87 07/02/22 01:51 98 20 100 60 07/02/22 01:30 102 07/02/22 01:20 105 07/02/22 01:10 100 120/90 07/02/22 01:06 97 124/80 07/02/22 01:00 94 32 118/83 (95) 100 Mechanical Ventilator 90.00 07/02/22 00:25 96 07/02/22 00:00 98 36 124/80 (95) 100 Mechanical Ventilator 90.00 07/01/22 23:59 99 Mechanical Ventilator 60 07/01/22 23:22 36.8 07/01/22 23:00 97 27 101/76 (84) 97 Mechanical Ventilator 90.00 07/01/22 22:20 92 98/64 07/01/22 22:11 92 20 100 70 07/01/22 22:00 94 22 104/78 (87) 100 Mechanical Ventilator 90.00 07/01/22 21:00 96 20 98/70 (79) 100 Mechanical Ventilator 90.00 07/01/22 20:00 98 Mechanical Ventilator 70 07/01/22 20:00 36.4 07/01/22 20:00 93 20 92/71 (78) 100 Mechanical Ventilator 90.00 07/01/22 19:00 87 20 96/73 (81) 100 Mechanical Ventilator 90.00 07/01/22 18:59 87 07/01/22 18:35 88 20 100 70 07/01/22 18:20 91 92/67 07/01/22 18:00 91 20 93/69 (77) 100 Mechanical Ventilator 90.00 07/01/22 17:00 93 20 115/78 (90) 100 Mechanical Ventilator 90.00 07/01/22 16:58 Mechanical Ventilator 90.00 07/01/22 16:32 100 Mechanical Ventilator 07/01/22 16:00 93 20 100/63 (71) 100 Mechanical Ventilator 100.00 07/01/22 16:00 36.0 07/01/22 15:00 103 22 96/60 (69) 98 Mechanical Ventilator 100.00 07/01/22 14:00 102 105/79 (88) 100 Mechanical Ventilator 100.00 I & O 07/02/22 07:00 Intake Total 1900 ml Output Total 1575 ml Balance 325 ml Capillary Refill : Less Than 3 Seconds General Appearance: No Apparent Distress, WD/WN HEENT: Other (endotracheal tube in place) Respiratory: Lungs Clear, Normal Breath Sounds, No Respiratory Distress, Decreased Breath Sounds (left), Rhonci Cardiovascular: Regular Rate, Rhythm, No Murmur Gastrointestinal: soft, no organomegaly; No distended Extremity: No Pedal Edema Neurologic/Psychiatric: Other (sedated but does follow commands, can squeeze hands, responds yes or now, pupils react to light) Results Lab Laboratory Tests 07/01/22 15:43: Blood Gas Puncture Site LEFT RADIAL, Blood Gas Patient Temperature 36.0, Arterial Blood pH 7.34*L, Arterial Blood Partial Pressure CO2 51H, Arterial Blood Partial Pressure O2 105H, Arterial Blood HCO3 28H, Arterial Blood Total CO2 29.2, Arterial Blood Oxygen Saturation 98, Arterial Blood Base Excess 2.1, Rubén Test YES-POS, Blood Gas Ventilator Setting YES, Blood Gas Inspired Oxygen 100% 07/01/22 17:53: Glucometer 115H 07/01/22 18:12: Sodium Level 138, Potassium Level 4.3, Chloride Level 104, Carbon Dioxide Level 23, Anion Gap 11, Blood Urea Nitrogen 7, Creatinine 0.66, Estimat Glomerular Filtration Rate 107, BUN/Creatinine Ratio 11, Glucose Level 105, Calcium Level 8.2L, Magnesium Level 2.5H, Total Creatine Kinase 173, Triglycerides Level 130, Serum Alcohol < 10 07/01/22 23:21: Glucometer 151H 07/02/22 04:38: White Blood Count 9.6, Red Blood Count 3.31L, Hemoglobin 11.7L, Hematocrit 34L, Mean Corpuscular Volume 103H, Mean Corpuscular Hemoglobin 35H, Mean Corpuscular Hemoglobin Concent 34, Red Cell Distribution Width 13.1, Platelet Count 133, Mean Platelet Volume 10.6, Immature Granulocyte % (Auto) 1, Neutrophils (%) (Auto) 88H, Lymphocytes (%) (Auto) 7L, Monocytes (%) (Auto) 5, Eosinophils (%) (Auto) 0, Basophils (%) (Auto) 0, Neutrophils # (Auto) 8.4H, Lymphocytes # (Auto) 0.7L, Monocytes # (Auto) 0.4, Eosinophils # (Auto) 0.0, Basophils # (Auto) 0.0, Immature Granulocyte # (Auto) 0.1, Sodium Level 136, Potassium Level 4.0, Chloride Level 105, Carbon Dioxide Level 23, Anion Gap 8, Blood Urea Nitrogen 10, Creatinine 0.68, Estimat Glomerular Filtration Rate 106, BUN/Creatinine Ratio 15, Glucose Level 138H, Calcium Level 8.1L, Corrected Calcium 8.7, Phosphorus Level 2.0L, Magnesium Level 2.1, Total Bilirubin 0.6, Aspartate Amino Transf (AST/SGOT) 68H, Alanine Aminotransferase (ALT/SGPT) 37, Alkaline Phosphatase 100, Total Protein 5.8L, Albumin 3.3 07/02/22 04:45: Blood Gas Puncture Site L RAD, Blood Gas Patient Temperature 36.4, Arterial Blood pH 7.38, Arterial Blood Partial Pressure CO2 44, Arterial Blood Partial Pressure O2 121H, Arterial Blood HCO3 26, Arterial Blood Total CO2 27.0, Arterial Blood Oxygen Saturation 99, Arterial Blood Base Excess 0.9, Rubén Test YES-POS, Blood Gas Ventilator Setting YES, Blood Gas Inspired Oxygen 50% 07/02/22 05:01: Glucometer 152H 07/02/22 11:40: Glucometer 123H Microbiology 07/01/22 Gram Stain, Resulted Pending 07/01/22 Sputum Culture - Preliminary, Resulted Gram Negative Coccobacillus Assessment/Plan Assessment/Plan Assessment/Plan Mucous Plugging appears to have cleared on today's CXR S/P witnessed cardiac arrest Hypokalemia - resolved Pt O2 is 100% on only 30% oxygent with vent. Repeat CXR looks almost normal and it doesn't look like pt will need a bronchoscopy; in fact they are thinking about trying to extubate today. EDGARDO AVILA DO July 02, 2022 13:55
[2022-07-02 14:27] VITALS: BP 144/83
--- NOTE | 2022-07-02 14:37 | Progress Note ---
Standard Progress Note Progress Notes/Assess & Plan Date Seen by a Provider: July 02, 2022 Time Seen by a Provider: 14:35 Progress/Assessment & Plan called to evaluate for extubation, has been on PSV/CPAP 5/5 for an hour, spont RR is low, awake and answers questions, needs suctioning about every 4 hours. Does have bloody secretions, at times are thick Will wait until tomorrow and if secretions less will extubate BILL NIETO MD July 02, 2022 14:37
--- NOTE | 2022-07-02 16:12 | Cardiology Progress Note ---
Cardiology SOAP Progress Note Subjective: intubated/ventilated Objective: I&O/Vital Signs 07/02/22 07/02/22 07/02/22 07/02/22 05:00 05:02 05:33 06:00 Pulse 92 94 94 88 Resp 10 B/P (MAP) 105/74 (84) 105/74 105/74 85/62 (70) Pulse Ox 100 100 O2 Delivery Mechanical Ventilator Mechanical Ventilator O2 Flow Rate 90.00 90.00 07/02/22 07/02/22 07/02/22 07/02/22 06:11 06:23 07:00 07:00 Pulse 86 85 88 87 Resp B/P (MAP) 85/62 119/70 (86) Pulse Ox 100 100 O2 Delivery Mechanical Ventilator O2 Flow Rate 90.00 FiO2 35 07/02/22 07/02/22 07/02/22 07/02/22 07:37 07:48 08:00 08:58 Temp 36.9 Pulse 85 83 Resp 17 21 B/P (MAP) 121/73 (91) Pulse Ox 100 99 100 O2 Delivery Mechanical Ventilator Mechanical Ventilator O2 Flow Rate 90.00 FiO2 35 35 07/02/22 07/02/22 07/02/22 07/02/22 09:00 09:33 10:00 11:00 Pulse 81 85 86 90 Resp 20 31 18 B/P (MAP) 116/69 (92) 141/81 143/127 (129) 123/67 (87) Pulse Ox 100 97 98 O2 Delivery Mechanical Ventilator Mechanical Ventilator Mechanical Ventilator O2 Flow Rate 90.00 90.00 90.00 07/02/22 07/02/22 07/02/22 07/02/22 11:12 11:17 11:58 12:00 Pulse 90 86 Resp 17 B/P (MAP) 123/67 130/71 (93) Pulse Ox 99 98 O2 Delivery Mechanical Ventilator Mechanical Ventilator Mechanical Ventilator O2 Flow Rate 30.00 30.00 FiO2 30 07/02/22 07/02/22 07/02/22 07/02/22 12:01 12:49 13:00 14:00 Temp 36.5 Pulse 86 89 87 Resp 21 B/P (MAP) 115/47 (55) 120/70 (86) Pulse Ox 98 98 O2 Delivery Mechanical Ventilator Mechanical Ventilator O2 Flow Rate 30.00 30.00 5/28/07/02/22 07/02/22 07/02/22 14:27 15:00 15:06 16:04 Temp 36.9 Pulse 87 85 Resp 23 22 B/P (MAP) 141/81 (97) Pulse Ox 100 95 99 O2 Delivery Mechanical Ventilator Mechanical Ventilator O2 Flow Rate 30.00 FiO2 30 30 07/02/22 16:07 Pulse 85 B/P (MAP) 141/81 07/02/22 00:00 Intake Total 800 ml Output Total 1275 ml Balance -475 ml Constitutional: other (intubated/ventilated) Respiratory: No accessory muscle use, No respiratory distress; lungs clear to auscultation; No wheezing Cardiovascular: regular rate-rhythm, S1 and S2 Gastrointestional: soft Extremities: No pedal edema Neurologic/Psychiatric: other (intubated/ventilated) Skin: normal color Results/Procedures: Labs Laboratory Tests 07/01/22 17:53: Glucometer 115H 07/01/22 18:12: Sodium Level 138, Potassium Level 4.3, Chloride Level 104, Carbon Dioxide Level 23, Anion Gap 11, Blood Urea Nitrogen 7, Creatinine 0.66, Estimat Glomerular Filtration Rate 107, BUN/Creatinine Ratio 11, Glucose Level 105, Calcium Level 8.2L, Magnesium Level 2.5H, Total Creatine Kinase 173, Triglycerides Level 130, Serum Alcohol < 10 07/01/22 23:21: Glucometer 151H 07/02/22 04:38: Sodium Level 136, Potassium Level 4.0, Chloride Level 105, Carbon Dioxide Level 23, Anion Gap 8, Blood Urea Nitrogen 10, Creatinine 0.68, Estimat Glomerular Filtration Rate 106, BUN/Creatinine Ratio 15, Glucose Level 138H, Calcium Level 8.1L, Magnesium Level 2.1, White Blood Count 9.6, Red Blood Count 3.31L, Hemoglobin 11.7L, Hematocrit 34L, Mean Corpuscular Volume 103H, Mean Corpuscular Hemoglobin 35H, Mean Corpuscular Hemoglobin Concent 34, Red Cell Distribution Width 13.1, Platelet Count 133, Mean Platelet Volume 10.6, Immature Granulocyte % (Auto) 1, Neutrophils (%) (Auto) 88H, Lymphocytes (%) (Auto) 7L, Monocytes (%) (Auto) 5, Eosinophils (%) (Auto) 0, Basophils (%) (Auto) 0, Neutrophils # (Auto) 8.4H, Lymphocytes # (Auto) 0.7L, Monocytes # (Auto) 0.4, Eosinophils # (Auto) 0.0, Basophils # (Auto) 0.0, Immature Granulocyte # (Auto) 0.1, Corrected Calcium 8.7, Phosphorus Level 2.0L, Total Bilirubin 0.6, Aspartate Amino Transf (AST/SGOT) 68H, Alanine Aminotransferase (ALT/SGPT) 37, Alkaline Phosphatase 100, Total Protein 5.8L, Albumin 3.3 07/02/22 04:45: Blood Gas Puncture Site L RAD, Blood Gas Patient Temperature 36.4, Arterial Blood pH 7.38, Arterial Blood Partial Pressure CO2 44, Arterial Blood Partial Pressure O2 121H, Arterial Blood HCO3 26, Arterial Blood Total CO2 27.0, Arterial Blood Oxygen Saturation 99, Arterial Blood Base Excess 0.9, Rubén Test YES-POS, Blood Gas Ventilator Setting YES, Blood Gas Inspired Oxygen 50% 07/02/22 05:01: Glucometer 152H 07/02/22 11:40: Glucometer 123H Microbiology 07/01/22 Blood Culture - Preliminary, Resulted No growth 07/01/22 Gram Stain, Resulted Pending 07/01/22 Sputum Culture - Preliminary, Resulted Gram Negative Coccobacillus A/P: Assessment/Dx: Ventricular fibrillation, ROSC achieved. Patient is intubated/ventilated unlikely STEMI, negative first troponin. serial troponin pending. Witnessed arrest. Ventricular fibrillation. Single shock. ROSC achieved. In route EMS EKG showed possible ST elevation in leads V2 and V3 therefore patient was brought directly to the [facility] on 07/02/22. Coronary angiography did not show any occlusive coronary artery disease. Preserved LV function, however echocardiogram needs to be done. Aortogram did not show any aortic dissection. No antiplatelet or anticoagulation was given since the patient was bleeding from his face which was likely due to trauma from collapsing. Patient was already intubated/ventilated. Echocardiogram shows EF of 35 to 40%. Global hypokinesis. No LV thrombus noted. No significant valvular heart disease. No pericardial effusion. ICD once neurological recovery is reasonable. Acute hypercapnic respiratory failure, CT chest shows left lower lobe collapse/atelectasis. No PE. Positive D-dimer. According to patient is a heavy smoker and alcoholic. Significant electrolyte abnormalities with hypokalemia and hypomagnesemia. Will need repletion. CT head did not show any significant active intracranial abnormality. Improved neurological status Plan: As above. Thank you for your consultation. Please call me if you have any questions. May Novak MD, FACP, FACC, [facility], [facility], CCDS Interventional Cardiology Cardiac Electrophysiology Vascular Medicine and Endovascular Interventions Diagnosis/Problems Diagnosis/Problems (1) Ventricular fibrillation Status: Acute Tod NOVAK MD July 02, 2022 16:12
--- NOTE | 2022-07-02 17:43 | Progress Note - Hospitalist ---
Subjective HPI/CC On Admission Date Seen by Provider: July 02, 2022 Time Seen by Provider: 10:55 Marcos Crawford is a 62 year old male with PMH alcohol abuse, tobacco abuse, who presented after a cardiac arrest. [place] was [place] [employer] [place] and was about to play in a tournament. He had reportedly been feeling bad for several days. His teeth are "all rotten" and he was scheduled to have his teeth pulled next Sunday. He obtained and was taking an antibiotic from a farm store. His is unsure what the antibiotics was. She does not think they recommended he take antibiotics. He had been having body aches. She reports that he told her he felt like he was going to . He had been reporting chest pain. He did not want to go [place] [employer] but he had already paid for it. He is an every day drinker. His daughter says he drinks "a lot". He reportedly gets shaky when he hasn't had a drink. She does not remember him going a day without a drink. He has never been admitted to the hospital with alcohol withdrawal. He has no known medical conditions. He does not take any medications daily. EMS found him in ventricular fibrillation. ROSC was quickly obtained. He was thought to have ST elevations on the EKG and was taken directly to the [facility]. Dr. Novak performed left heart cath which showed non-obstructive coronary artery disease and no other cause for his arrest. He was admitted to the ICU. Dr. Novak contacted the hospitalist service to assume care of the patient. Labs and imaging were ordered. TeleICU was consulted. Subjective/Events-last exam He remains intubated and sedated. Nursing reports he was waking up and following commands. Family is at the bedside and in the waiting room and were updated with his progress and plans. Objective Exam Vital Signs Vital Signs Date Time Temp Pulse Resp B/P (MAP) Pulse Ox O2 Delivery O2 Flow Rate FiO2 07/02/22 17:00 89 19 138/71 (93) 96 Mechanical Ventilator 30.00 07/02/22 16:04 30 07/02/22 15:06 36.9 Capillary Refill : Less Than 3 Seconds General Appearance: No Apparent Distress, WD/WN Respiratory: No Accessory Muscle Use, No Respiratory Distress, Other (intubated and mechanically ventilated) Cardiovascular: Regular Rate, Rhythm, No Edema Gastrointestinal: No Distended Extremity: Normal Inspection, No Pedal Edema Neurologic/Psychiatric: Other (sedated) Skin: Normal Color Results/Procedures Lab Laboratory Tests 07/01/22 18:12 07/02/22 04:38 Patient resulted labs reviewed. Imaging: Reviewed Imaging Films, Reviewed Imaging Report Assessment/Plan Assessment and Plan Assess & Plan/Chief Complaint Cardiac arrest Ventricular fibrillation Acute HFrEF Acute respiratory failure with hypoxia and hypercapnia Endotracheally intubated Hypokalemia Hypomagnesemia Alcohol dependence Elevated LFTs Hepatic steatosis Left lower lobe collapse Mucus plugging Misuse of medication Tobacco abuse Cardiology following, left heart cath without obstructive coronary artery disease Electrolytes improving CXR with left lower lobe collapse 07/01, resolved 07/02 CT chest showed left lower lobe atelectasis, hepatic steatosis, no PE or infiltrate Surgery following, no plans for bronchoscopy at this time MAT protocol TeleICU following, managing ventilator Continue Zosyn Blood cultures with no growth Taking unknown antibiotic intended for animal use obtained from farm store CIWA protocol ordered, scheduled Ativan, vitamin replacement DVT prophylaxis: Lovenox Critical Care Critically Ill Patient Diagnosis/Problems Diagnosis/Problems (1) Cardiac arrest with ventricular fibrillation Status: Acute (2) Acute HFrEF (heart failure with reduced ejection fraction) Status: Acute (3) Acute respiratory failure with hypoxia and hypercapnia Status: Acute (4) Mucus plug in respiratory tract Status: Acute (5) Collapse of left lung Status: Acute (6) Hepatic steatosis Status: Acute (7) Elevated LFTs Status: Acute (8) Alcohol dependence Status: Acute Qualifiers: Substance use status: in withdrawal Complication of substance-induced condition: with unspecified complication Qualified Codes: F10.239 - Alcohol dependence with withdrawal, unspecified (9) Tobacco abuse Status: Chronic (10) Hypokalemia Status: Acute (11) Hypomagnesemia Status: Acute (12) Endotracheally intubated Status: Acute (13) Misuse of medication Status: Acute SINDY ANGLIN MD July 02, 2022 17:43
[2022-07-02 18:43] VITALS: BP 134/73
[2022-07-02] MEDS: ENOXAPARIN 40 MG/0.4 ML (LOVENOX) SYR SC SCH (20:08)
[2022-07-02 21:44] VITALS: BP 129/70
[2022-07-03] MEDS: PROPOFOL DRIP (ICU) 100 ML IV SCH ×3 (01:15→09:55)
[2022-07-03] MEDS: LORazepam INJ 2 MG/ML (ATIVAN) VIAL IVP SCH ×6 (01:42→21:19)
[2022-07-03 02:03] VITALS: BP 129/69
[2022-07-03] MEDS: RT-ALBUTEROL/IPRATROPIUM 3 ML (DUONEB) VIAL INH SCH ×5 (02:03→20:16)
[2022-07-03] MEDS: D5 1/2 NS W/KCL 20 MEQ/L 1,000 ML IV SCH ×4 (03:41→23:57)
[2022-07-03] MEDS: PIPERACILLIN SODIUM/TAZOBACTAM 4.5 GM in NS (IVPB) 100 ML IV SCH ×3 (03:41→20:01)
[2022-07-03 04:16] LABS: ABG BASE EXCESS 0.2 MMOL/L (-2.5-2.5); ABG OXYGEN SATURATION 96 % (94-100); ABG PCO2 47 MMHG (35-45); ABG PH 7.35 (7.37-7.43); ABG PO2 76 MMHG (79-93); ABG TCO2 26.4 MMOL/L (21.0-31.0)
[2022-07-03 04:18] LABS: BASOPHILS % (AUTO) 0 % (0-10); EOSINOPHILS # (AUTO) 0.1 10^3/uL (0.0-0.3); MEAN PLATELET VOLUME 10.7 fL (9.0-12.2)
[2022-07-03 04:20] LABS: EOSINOPHILS % (AUTO) 1 % (0-10); HEMATOCRIT 31 % (40-54); HEMOGLOBIN 10.5 g/dL (13.3-17.7); LYMPHOCYTES # (AUTO) 1.2 10^3/uL (1.0-4.0); LYMPHOCYTES % (AUTO) 14 % (12-44); MEAN CORPUSCULAR HEMOGLOBIN 35 pg (25-34); MEAN CORPUSCULAR HGB CONC 34 g/dL (32-36); MEAN CORPUSCULAR VOLUME 105 fL (80-99); MONOCYTES # (AUTO) 0.4 10^3/uL (0.0-1.0); MONOCYTES % (AUTO) 5 % (0-12); NEUTROPHILS # (AUTO) 6.8 10^3/uL (1.8-7.8); NEUTROPHILS % (AUTO) 80 % (42-75); PLATELET COUNT 122 10^3/uL (130-400); WHITE BLOOD COUNT 8.5 10^3/uL (4.3-11.0)
[2022-07-03 04:30] LABS: POTASSIUM 3.9 MMOL/L (3.6-5.0)
[2022-07-03 04:30] LABS: ALLENS TEST YES-POS; INSPIRED O2 30%
[2022-07-03 04:31] LABS: PATIENT TEMP 37.8; VENTILATOR YES
[2022-07-03 04:31] LABS: ALBUMIN 2.9 GM/DL (3.2-4.5)
[2022-07-03 04:33] LABS: TOTAL PROTEIN 5.2 GM/DL (6.4-8.2)
[2022-07-03 04:35] LABS: BILIRUBIN,TOTAL 0.5 MG/DL (0.1-1.0)
[2022-07-03 04:36] LABS: PHOSPHORUS 1.5 MG/DL (2.3-4.7)
[2022-07-03 04:37] LABS: CREATININE SERUM 0.66 MG/DL (0.60-1.30)
[2022-07-03] MEDS: MAGNESIUM 1 GM/100 ML IVPB 100 ML IV SCH (04:58)
[2022-07-03] MEDS: inSUlin ASPART (NovoLOG) 1 UNIT/0.01 ML (CHARGE PER UNIT) SC SCH ×4 (04:58→23:34)
[2022-07-03] MEDS: POTASSIUM CL 10MEQ/50ML IVPB 50 ML IV SCH ×2 (04:58→05:08)
[2022-07-03] MEDS: KCL 20 MEQ TAB (K-DUR) PO SCH (04:58)
[2022-07-03] MEDS: THIAMINE 100 MG (VITAMIN B-1) TAB PO SCH (05:43)
[2022-07-03 06:26] VITALS: BP 125/68
[2022-07-03] MEDS: THIAMINE INJECTION 100 MG, FOLIC ACID INJECTION 1 MG, MAGNESIUM SULFATE 2 GM, VITAMIN M... IV SCH ×5 (08:06)
[2022-07-03] MEDS: NICOTINE 14 MG (NICODERM) PATCH TD SCH (08:07)
[2022-07-03] MEDS: FOLIC ACID 1 MG TAB PO SCH (08:07)
[2022-07-03] MEDS: PANTOPRAZOLE 40 MG (PROTONIX) VIAL IV SCH (08:07)
--- NOTE | 2022-07-03 08:26 | Progress Note - Hospitalist ---
Subjective HPI/CC On Admission Date Seen by Provider: July 03, 2022 Marcos Crawford is a 62 year old male with PMH alcohol abuse, tobacco abuse, who presented after a cardiac arrest. [place] and was about to play in a tournament. He had reportedly been feeling bad for several days. His teeth are "all rotten" and he was scheduled to have his teeth pulled next Sunday. He obtained and was taking an antibiotic from a farm store. His is unsure what the antibiotics was. She does not think they recommended he take antibiotics. He had been having body aches. She reports that he told her he felt like he was going to . He had been reporting chest pain. He did not want to go [place] [employer] but he had already paid for it. He is an every day drinker. His daughter says he drinks "a lot". He reportedly gets shaky when he hasn't had a drink. She does not remember him going a day without a drink. He has never been admitted to the hospital with alcohol withdrawal. He has no known medical conditions. He does not take any medications daily. EMS found him in ventricular fibrillation. ROSC was quickly obtained. He was thought to have ST elevations on the EKG and was taken directly to the mobile home laborer. Dr. Novak performed left heart cath which showed non-obstructive coronary artery disease and no other cause for his arrest. He was admitted to the ICU. Dr. Novak contacted the hospitalist service to assume care of the patient. Labs and imaging were ordered. TeleICU was consulted. Subjective/Events-last exam Pt remains intubated and sedated. RN reports fever overnight up to 38.0. NO other issues. Daughter at bedside. Family brought in information on vet medicine patient was taking. It was "Fishbiotic Amoxicillin" Instructions are for 500mg TID but family thinks he was taking a lot more. I looked up medicine and cannot find any other ingredients listed on the instructions but it does state no for human use or for fish intended for human consumption. Objective Exam Vital Signs Vital Signs Date Time Temp Pulse Resp B/P (MAP) Pulse Ox O2 Delivery O2 Flow Rate FiO2 07/03/22 07:40 38.0 07/03/22 07:00 97 07/03/22 06:26 20 95 30 07/03/22 06:00 124/68 (86) Mechanical Ventilator 30.00 Capillary Refill : Less Than 3 Seconds General Appearance: Other (sedated and intubated) Respiratory: Other (on vent, no crackles or wheezing, decreased breath sounds bilaterally in bases) Cardiovascular: Regular Rate, Rhythm, No Murmur Gastrointestinal: Normal Bowel Sounds, Soft Genital/Rectal: Other (kumar in place) Neurologic/Psychiatric: Other (sedated, appears comfortable) Results/Procedures Lab Laboratory Tests 07/03/22 03:58 Patient resulted labs reviewed. Imaging: Reviewed Imaging Films, Reviewed Imaging Report Assessment/Plan Assessment and Plan Assess & Plan/Chief Complaint Cardiac arrest Ventricular fibrillation Acute HFrEF Acute respiratory failure with hypoxia and hypercapnia Endotracheally intubated Hypokalemia Hypomagnesemia Alcohol dependence Elevated LFTs Hepatic steatosis Left lower lobe collapse Mucus plugging Misuse of medication Tobacco abuse Cardiology following, left heart cath without obstructive coronary artery disease Electrolytes improving- replace Phosph CXR with left lower lobe collapse 07/01, resolved 07/02 CT chest showed left lower lobe atelectasis, hepatic steatosis, no PE or infiltrate Surgery following, no plans for bronchoscopy at this time MAT protocol TeleICU following, managing ventilator, appreciate assistance Continue Zosyn Blood cultures with no growth but given fever will repeat pancultures and CXR Unknown med was "Fishbiotic Amoxicillin" - will reach out to poison control regarding this med CIWA protocol ordered, scheduled Ativan, vitamin replacement DVT prophylaxis: Lovenox Critical Care Critically Ill Patient SUBHASH MCFADDEN MD July 03, 2022 08:26
--- NOTE | 2022-07-03 08:28 | Tele-ICU Progress Note ---
Subjective Date Seen by a Provider: July 03, 2022 Time Seen by a Provider: 08:23 Subjective/Events-last exam (Tele-ICU Physician , Progress Note ) Service provided via interactive audio and video telecommunications E-CARE system to a patient admitted to ICU bed in [facility]. Patient is seen today due to persistent need of ICU care Available chart/ vitals / labs / Images reviewed Video assessment done using teleICU camera, rest of exam as per RN Discussed with RN Now on AC 20, Vt 560, PEEP 5 FiO2 30%, pt is awake and alert, on IV Fentanyl @ 100 IV Propofol 50 Had temp 38.2, LA 1.7, now afebrile, BC drawn CXR today shows diaphragms a little higher and an opacity in LLL atelectasis vs infiltrate No blood in secretions, secretions are less. Cough is ok but is sedated Sepsis Event Evaluation Height, Weight, BMI Height: '" Weight: lbs. oz. kg; 26.39 BMI Method: Exam Exam Patient acknowledged, consented, and participated in this virtual visit which was conducted using real time audio/video Vital Signs Date Time Temp Pulse Resp B/P (MAP) Pulse Ox O2 Delivery O2 Flow Rate FiO2 07/03/22 07:40 38.0 07/03/22 07:00 97 07/03/22 06:26 93 20 95 30 07/03/22 06:00 93 20 124/68 (86) 96 Mechanical Ventilator 30.00 07/03/22 05:37 96 138/72 07/03/22 05:08 90 145/75 07/03/22 05:00 88 20 147/75 (96) 98 Mechanical Ventilator 30.00 07/03/22 04:00 96 20 122/71 (84) 96 Mechanical Ventilator 30.00 07/03/22 03:45 30 07/03/22 03:45 97 Mechanical Ventilator 30 07/03/22 03:30 37.8 96 20 122/70 (87) 97 Mechanical Ventilator 30.00 07/03/22 03:00 97 20 126/73 (91) 97 Mechanical Ventilator 30.00 07/03/22 02:03 94 20 96 30 07/03/22 02:00 93 20 129/69 (86) 96 Mechanical Ventilator 30.00 07/03/22 01:15 90 139/72 07/03/22 01:14 91 135/76 07/03/22 01:00 97 07/03/22 01:00 97 20 135/76 (83) 96 Mechanical Ventilator 30.00 07/03/22 00:58 91 135/76 07/03/22 00:00 93 20 134/70 (91) 96 Mechanical Ventilator 30.00 07/02/22 23:42 30 07/02/22 23:41 103 132/79 07/02/22 23:41 103 132/79 07/02/22 23:40 97 Mechanical Ventilator 30 07/02/22 23:30 37.3 102 20 132/79 (96) 97 Mechanical Ventilator 30.00 07/02/22 23:00 93 20 142/78 (102) 97 Mechanical Ventilator 30.00 07/02/22 22:00 93 20 141/74 (96) 97 Mechanical Ventilator 30.00 07/02/22 21:44 89 20 98 30 07/02/22 21:06 95 126/73 07/02/22 21:00 90 20 126/66 (88) 96 Mechanical Ventilator 30.00 07/02/22 20:58 95 126/73 07/02/22 20:31 90 129/70 07/02/22 20:00 30 07/02/22 20:00 87 20 135/72 (96) 95 Mechanical Ventilator 30.00 07/02/22 19:20 95 Mechanical Ventilator 30 07/02/22 19:00 91 07/02/22 19:00 37.6 92 20 130/67 (88) 95 Mechanical Ventilator 30.00 07/02/22 18:43 90 20 96 30 07/02/22 17:00 89 19 138/71 (93) 96 Mechanical Ventilator 30.00 07/02/22 16:31 87 123/71 07/02/22 16:07 85 141/81 07/02/22 16:04 99 Mechanical Ventilator 30 07/02/22 16:00 84 21 136/70 (92) 97 Mechanical Ventilator 30.00 07/02/22 15:06 36.9 07/02/22 15:00 85 22 141/81 (97) 95 Mechanical Ventilator 30.00 07/02/22 14:27 87 23 100 30 07/02/22 14:00 87 21 120/70 (86) 98 Mechanical Ventilator 30.00 07/02/22 13:00 89 115/47 (55) 98 Mechanical Ventilator 30.00 07/02/22 12:49 86 07/02/22 12:01 36.5 07/02/22 12:00 86 17 130/71 (93) 98 Mechanical Ventilator 30.00 07/02/22 11:58 99 Mechanical Ventilator 30 07/02/22 11:17 90 123/67 07/02/22 11:12 Mechanical Ventilator 30.00 07/02/22 11:00 90 18 123/67 (87) 98 Mechanical Ventilator 90.00 07/02/22 10:00 86 31 143/127 (129) 97 Mechanical Ventilator 90.00 07/02/22 09:33 85 141/81 07/02/22 09:00 81 20 116/69 (92) 100 Mechanical Ventilator 90.00 07/02/22 08:58 83 21 100 35 I & O 07/03/22 07:00 Intake Total 4710 ml Output Total 2950 ml Balance 1760 ml Height & Weight Height: '" Weight: lbs. oz. kg; 26.39 BMI Method: General Appearance: No Apparent Distress, WD/WN HEENT: Other (endotracheal tube in place) Respiratory: No Accessory Muscle Use, No Respiratory Distress, Decreased Breath Sounds, Other (intubated and mechanically ventilated) Cardiovascular: Regular Rate, Rhythm, No Edema Capillary Refill: Less Than 3 Seconds Gastrointestinal: normal bowel sounds, non tender, soft, no organomegaly; No distended Extremity: Normal Inspection, No Pedal Edema Neurologic/Psychiatric: Other (sedated) Skin: Normal Color Results Lab Laboratory Tests 07/01/22 11:23 07/01/22 18:12 07/02/22 04:38 07/03/22 03:58 Assessment/Plan Assessment/Plan Back on vent due to temp, will try to lower sedation and if looks good try SBT-I think he will be able to be extubated today. continue abx and await BC Not showing signs EtOH withdrawal right now but needs to be watched Critical Care: Ventilator Management Time spent with patient (mins): 35 BILL NIETO MD July 03, 2022 08:28
[2022-07-03] MEDS ORDERED: POTASSIUM PHOSPHATE INJ 15 MM in NS (IVPB) 250 ML IV ONE (08:30)
[2022-07-03 08:53] LABS: BILIRUBIN,URINE NEGATIVE (NEGATIVE); CLARITY,URINE CLEAR; COLOR,URINE YELLOW; GLUCOSE, URINE (UA) NEGATIVE (NEGATIVE); KETONES,URINE NEGATIVE (NEGATIVE); LEUKOCYTE ESTERASE ,URINE NEGATIVE (NEGATIVE); NITRITE,URINE NEGATIVE (NEGATIVE); PH,URINE 5.5 (5-9); PROTEIN,URINE NEGATIVE (NEGATIVE)
--- NOTE | 2022-07-03 09:01 | Diagnostic Imaging Report ---
INDICATION: Fever. TECHNIQUE: Single view chest 8:40 AM. CORRELATION STUDY: 07/02/2022 FINDINGS: Endotracheal tube and gastric tube remain in place. Heart size and mediastinum are stable. Opacity left lung base has adversely developed and likely a small effusion with atelectasis or infiltrate. Trace right pleural effusion. Subcutaneous gas over the right chest is suggested. No definitive pneumothorax. IMPRESSION: 1. Stable support lines and tubes. 2. Opacity left lung base likely combination of atelectasis and/or infiltrate along small effusion also trace right pleural effusion. 3. Soft tissue gas over the right lower lateral chest wall. This may reflect summation shadows, however subcutaneous gas not excluded. No appreciable pneumothorax. Dictated by: Dictated on workstation # [id number]
[2022-07-03] MEDS: fentaNYL DRIP PRE-MIX 250 ML IV SCH (09:12)
[2022-07-03 09:47] LABS: BACTERIA,URINE NEGATIVE /HPF; WBC,URINE RARE /HPF
[2022-07-03 10:59] VITALS: BP 139/76
--- NOTE | 2022-07-03 11:30 | Tele-ICU Progress Note ---
Subjective Date Seen by a Provider: July 03, 2022 Time Seen by a Provider: 11:28 Subjective/Events-last exam called to evaluate for extubation. awake, obeys commands, good cough, minimal suctioning needs, on PSV, with spont RR in teens, SpO2 98% will extubate if passes cuff deflation test Sepsis Event Evaluation Height, Weight, BMI Height: '" Weight: lbs. oz. kg; 26.39 BMI Method: Focused Exam Lactate Level 07/03/22 08:48: Lactic Acid Level 1.70 Lactic Acid Level Laboratory Tests Test 07/03/22 08:48 Lactic Acid Level 1.70 MMOL/L (0.50-2.00) Exam Exam Patient acknowledged, consented, and participated in this virtual visit which was conducted using real time audio/video Vital Signs Date Time Temp Pulse Resp B/P (MAP) Pulse Ox O2 Delivery O2 Flow Rate FiO2 07/03/22 10:59 93 16 98 30 07/03/22 10:30 37.9 07/03/22 10:00 92 124/72 (89) 98 Mechanical Ventilator 30.00 07/03/22 09:55 96 133/66 07/03/22 09:40 96 120/70 07/03/22 09:12 96 120/70 07/03/22 09:00 95 21 130/76 (94) 96 Mechanical Ventilator 30.00 07/03/22 08:23 37.8 07/03/22 08:11 30 07/03/22 08:00 96 27 120/70 (87) 97 Mechanical Ventilator 30.00 07/03/22 07:45 97 Mechanical Ventilator 30 07/03/22 07:40 38.0 07/03/22 07:00 97 07/03/22 07:00 99 13 119/65 (83) 96 Mechanical Ventilator 30.00 07/03/22 06:26 93 20 95 30 07/03/22 06:00 93 20 124/68 (86) 96 Mechanical Ventilator 30.00 07/03/22 05:37 96 138/72 07/03/22 05:08 90 145/75 07/03/22 05:00 88 20 147/75 (96) 98 Mechanical Ventilator 30.00 07/03/22 04:00 96 20 122/71 (84) 96 Mechanical Ventilator 30.00 07/03/22 03:45 30 07/03/22 03:45 97 Mechanical Ventilator 30 07/03/22 03:30 37.8 96 20 122/70 (87) 97 Mechanical Ventilator 30.00 07/03/22 03:00 97 20 126/73 (91) 97 Mechanical Ventilator 30.00 07/03/22 02:03 94 20 96 30 07/03/22 02:00 93 20 129/69 (86) 96 Mechanical Ventilator 30.00 07/03/22 01:15 90 139/72 07/03/22 01:14 91 135/76 07/03/22 01:00 97 07/03/22 01:00 97 20 135/76 (83) 96 Mechanical Ventilator 30.00 07/03/22 00:58 91 135/76 07/03/22 00:00 93 20 134/70 (91) 96 Mechanical Ventilator 30.00 07/02/22 23:42 30 07/02/22 23:41 103 132/79 07/02/22 23:41 103 132/79 07/02/22 23:40 97 Mechanical Ventilator 30 07/02/22 23:30 37.3 102 20 132/79 (96) 97 Mechanical Ventilator 30.00 07/02/22 23:00 93 20 142/78 (102) 97 Mechanical Ventilator 30.00 07/02/22 22:00 93 20 141/74 (96) 97 Mechanical Ventilator 30.00 07/02/22 21:44 89 20 98 30 07/02/22 21:06 95 126/73 07/02/22 21:00 90 20 126/66 (88) 96 Mechanical Ventilator 30.00 07/02/22 20:58 95 126/73 07/02/22 20:31 90 129/70 07/02/22 20:00 30 07/02/22 20:00 87 20 135/72 (96) 95 Mechanical Ventilator 30.00 07/02/22 19:20 95 Mechanical Ventilator 30 07/02/22 19:00 91 07/02/22 19:00 37.6 92 20 130/67 (88) 95 Mechanical Ventilator 30.00 07/02/22 18:43 90 20 96 30 07/02/22 17:00 89 19 138/71 (93) 96 Mechanical Ventilator 30.00 07/02/22 16:31 87 123/71 07/02/22 16:07 85 141/81 07/02/22 16:04 99 Mechanical Ventilator 30 07/02/22 16:00 84 21 136/70 (92) 97 Mechanical Ventilator 30.00 07/02/22 15:06 36.9 07/02/22 15:00 85 22 141/81 (97) 95 Mechanical Ventilator 30.00 07/02/22 14:27 87 23 100 30 07/02/22 14:00 87 21 120/70 (86) 98 Mechanical Ventilator 30.00 07/02/22 13:00 89 115/47 (55) 98 Mechanical Ventilator 30.00 07/02/22 12:49 86 07/02/22 12:01 36.5 07/02/22 12:00 86 17 130/71 (93) 98 Mechanical Ventilator 30.00 07/02/22 11:58 99 Mechanical Ventilator 30 I & O 07/03/22 07:00 Intake Total 4710 ml Output Total 2950 ml Balance 1760 ml Height & Weight Height: '" Weight: lbs. oz. kg; 26.39 BMI Method: General Appearance: No Apparent Distress, WD/WN HEENT: Other (endotracheal tube in place) Respiratory: No Accessory Muscle Use, No Respiratory Distress, Decreased Breath Sounds, Other (intubated and mechanically ventilated) Cardiovascular: Regular Rate, Rhythm, No Edema Capillary Refill: Less Than 3 Seconds Gastrointestinal: normal bowel sounds, non tender, soft, no organomegaly; No distended Extremity: Normal Inspection, No Pedal Edema Neurologic/Psychiatric: Other (sedated) Skin: Normal Color Results Lab Laboratory Tests 07/01/22 18:12 07/02/22 04:38 07/03/22 03:58 Assessment/Plan Assessment/Plan looks ready for extubation Critical Care: Ventilator Management Time spent with patient (mins): 15 BILL NIETO MD July 03, 2022 11:30
--- NOTE | 2022-07-03 13:25 | Progress Note - Surgery ---
Subjective Time Seen by a Provider: 11:18 Subjective/Events-last exam Pt seen and examined, still intubated. Nurse states they are about to attempt extubation. Review of Systems pt intubated Focused Exam Lactate Level 07/03/22 08:48: Lactic Acid Level 1.70 Objective Exam Vital Signs Date Time Temp Pulse Resp B/P (MAP) Pulse Ox O2 Delivery O2 Flow Rate FiO2 07/03/22 12:00 37.5 07/03/22 12:00 108 154/92 (112) 95 Nasal Cannula 3.00 07/03/22 11:45 Nasal Cannula 3.00 07/03/22 11:00 94 139/76 (97) 98 Mechanical Ventilator 30.00 07/03/22 10:59 93 16 98 30 07/03/22 10:30 37.9 07/03/22 10:00 92 124/72 (89) 98 Mechanical Ventilator 30.00 07/03/22 09:55 96 133/66 07/03/22 09:40 96 120/70 07/03/22 09:12 96 120/70 07/03/22 09:00 95 21 130/76 (94) 96 Mechanical Ventilator 30.00 07/03/22 08:23 37.8 07/03/22 08:11 30 07/03/22 08:00 96 27 120/70 (87) 97 Mechanical Ventilator 30.00 07/03/22 07:45 97 Mechanical Ventilator 30 07/03/22 07:40 38.0 07/03/22 07:00 97 07/03/22 07:00 99 13 119/65 (83) 96 Mechanical Ventilator 30.00 07/03/22 06:26 93 20 95 30 07/03/22 06:00 93 20 124/68 (86) 96 Mechanical Ventilator 30.00 07/03/22 05:37 96 138/72 07/03/22 05:08 90 145/75 07/03/22 05:00 88 20 147/75 (96) 98 Mechanical Ventilator 30.00 07/03/22 04:00 96 20 122/71 (84) 96 Mechanical Ventilator 30.00 07/03/22 03:45 30 07/03/22 03:45 97 Mechanical Ventilator 30 07/03/22 03:30 37.8 96 20 122/70 (87) 97 Mechanical Ventilator 30.00 07/03/22 03:00 97 20 126/73 (91) 97 Mechanical Ventilator 30.00 07/03/22 02:03 94 20 96 30 07/03/22 02:00 93 20 129/69 (86) 96 Mechanical Ventilator 30.00 07/03/22 01:15 90 139/72 07/03/22 01:14 91 135/76 07/03/22 01:00 97 07/03/22 01:00 97 20 135/76 (83) 96 Mechanical Ventilator 30.00 07/03/22 00:58 91 135/76 07/03/22 00:00 93 20 134/70 (91) 96 Mechanical Ventilator 30.00 07/02/22 23:42 30 07/02/22 23:41 103 132/79 07/02/22 23:41 103 132/79 07/02/22 23:40 97 Mechanical Ventilator 30 07/02/22 23:30 37.3 102 20 132/79 (96) 97 Mechanical Ventilator 30.00 07/02/22 23:00 93 20 142/78 (102) 97 Mechanical Ventilator 30.00 07/02/22 22:00 93 20 141/74 (96) 97 Mechanical Ventilator 30.00 07/02/22 21:44 89 20 98 30 07/02/22 21:06 95 126/73 07/02/22 21:00 90 20 126/66 (88) 96 Mechanical Ventilator 30.00 07/02/22 20:58 95 126/73 07/02/22 20:31 90 129/70 07/02/22 20:00 30 07/02/22 20:00 87 20 135/72 (96) 95 Mechanical Ventilator 30.00 07/02/22 19:20 95 Mechanical Ventilator 30 07/02/22 19:00 91 07/02/22 19:00 37.6 92 20 130/67 (88) 95 Mechanical Ventilator 30.00 07/02/22 18:43 90 20 96 30 07/02/22 17:00 89 19 138/71 (93) 96 Mechanical Ventilator 30.00 07/02/22 16:31 87 123/71 07/02/22 16:07 85 141/81 07/02/22 16:04 99 Mechanical Ventilator 30 07/02/22 16:00 84 21 136/70 (92) 97 Mechanical Ventilator 30.00 07/02/22 15:06 36.9 07/02/22 15:00 85 22 141/81 (97) 95 Mechanical Ventilator 30.00 07/02/22 14:27 87 23 100 30 07/02/22 14:00 87 21 120/70 (86) 98 Mechanical Ventilator 30.00 I & O 07/03/22 06:59 Intake Total 4710 ml Output Total 2950 ml Balance 1760 ml Capillary Refill : Less Than 3 Seconds General Appearance: No Apparent Distress, WD/WN HEENT: Other (endotracheal tube in place) Respiratory: No Accessory Muscle Use, No Respiratory Distress, Decreased Breath Sounds, Other (intubated and mechanically ventilated) Cardiovascular: Regular Rate, Rhythm, No Edema Gastrointestinal: normal bowel sounds, non tender, soft, no organomegaly; No distended Extremity: No Pedal Edema Neurologic/Psychiatric: Other (sedated) Skin: Normal Color Results Lab Laboratory Tests 07/02/22 17:16: Glucometer 118H 07/02/22 23:37: Glucometer 101 07/03/22 03:58: White Blood Count 8.5, Red Blood Count 2.96L, Hemoglobin 10.5L, Hematocrit 31L, Mean Corpuscular Volume 105H, Mean Corpuscular Hemoglobin 35H, Mean Corpuscular Hemoglobin Concent 34, Red Cell Distribution Width 13.1, Platelet Count 122L, Mean Platelet Volume 10.7, Immature Granulocyte % (Auto) 0, Neutrophils (%) (Auto) 80H, Lymphocytes (%) (Auto) 14, Monocytes (%) (Auto) 5, Eosinophils (%) (Auto) 1, Basophils (%) (Auto) 0, Neutrophils # (Auto) 6.8, Lymphocytes # (Auto) 1.2, Monocytes # (Auto) 0.4, Eosinophils # (Auto) 0.1, Basophils # (Auto) 0.0, Immature Granulocyte # (Auto) 0.0, Percent Immature Platelet Fraction 6.2, Sodium Level 138, Potassium Level 3.9, Chloride Level 108H, Carbon Dioxide Level 22, Anion Gap 8, Blood Urea Nitrogen 4L, Creatinine 0.66, Estimat Glomerular Filtration Rate 107, BUN/Creatinine Ratio 6, Glucose Level 87, Calcium Level 8.0L, Corrected Calcium 8.9, Phosphorus Level 1.5L, Magnesium Level 2.0, Total Bilirubin 0.5, Aspartate Amino Transf (AST/SGOT) 98H, Alanine Aminotransferase (ALT/SGPT) 40, Alkaline Phosphatase 117, Troponin I 0.033H, Total Protein 5.2L, Albumin 2.9L, Triglycerides Level 64 07/03/22 04:07: Blood Gas Puncture Site L RAD, Blood Gas Patient Temperature 37.8, Arterial Blood pH 7.35L, Arterial Blood Partial Pressure CO2 47H, Arterial Blood Partial Pressure O2 76L, Arterial Blood HCO3 25, Arterial Blood Total CO2 26.4, Arterial Blood Oxygen Saturation 96, Arterial Blood Base Excess 0.2, Rubén Test YES-POS, Blood Gas Ventilator Setting YES, Blood Gas Inspired Oxygen 30% 07/03/22 08:48: Lactic Acid Level 1.70 07/03/22 08:50: Urine Color YELLOW, Urine Clarity CLEAR, Urine pH 5.5, Urine Specific [place] <=1.005, Urine Protein NEGATIVE, Urine Glucose (UA) NEGATIVE, Urine Ketones NEGATIVE, Urine Nitrite NEGATIVE, Urine Bilirubin NEGATIVE, Urine Urobilinogen 0.2, Urine Leukocyte Esterase NEGATIVE, Urine RBC (Auto) NEGATIVE, Urine RBC NONE, Urine WBC RARE, Urine Crystals NONE, Urine Bacteria NEGATIVE, Urine Casts NONE, Urine Mucus NEGATIVE, Urine Culture Indicated NO 07/03/22 11:27: Glucometer 95 Microbiology 07/01/22 Blood Culture - Preliminary, Resulted No growth 07/01/22 Gram Stain - Final, Resulted 07/01/22 Sputum Culture - Preliminary, Resulted Gram Negative Coccobacillus Assessment/Plan Assessment/Plan Assessment/Plan Mucous Plugging appears to have cleared S/P witnessed cardiac arrest Hypokalemia - resolved Pt O2 is 100% on only 30% oxygent with vent. Plan to extubate today. I will sign off and can reconsult if needed. EDGARDO AVILA DO July 03, 2022 13:25
[2022-07-03] MEDS ORDERED: ACETAMINOPHEN 650 MG SUPP (TYLENOL) PR PRN (14:15)
--- NOTE | 2022-07-03 14:34 | Cardiology Progress Note ---
Cardiology SOAP Progress Note Subjective: extubated. no chest pain, no shortness of breath Objective: I&O/Vital Signs 07/03/22 07/03/22 07/03/22 07/03/22 03:00 03:30 03:45 03:45 Temp 37.8 Pulse 97 96 Resp 20 20 B/P (MAP) 126/73 (91) 122/70 (87) Pulse Ox 97 97 97 O2 Delivery Mechanical Ventilator Mechanical Ventilator Mechanical Ventilator O2 Flow Rate 30.00 30.00 FiO2 30 30 07/03/22 07/03/22 07/03/22 07/03/22 04:00 05:00 05:08 05:37 Pulse 96 88 90 96 Resp 20 20 B/P (MAP) 122/71 (84) 147/75 (96) 145/75 138/72 Pulse Ox 96 98 O2 Delivery Mechanical Ventilator Mechanical Ventilator O2 Flow Rate 30.00 30.00 07/03/22 07/03/22 07/03/22 07/03/22 06:00 06:26 07:00 07:00 Pulse 93 93 99 97 Resp 20 20 13 B/P (MAP) 124/68 (86) 119/65 (83) Pulse Ox 96 95 96 O2 Delivery Mechanical Ventilator Mechanical Ventilator O2 Flow Rate 30.00 30.00 FiO2 30 07/03/22 07/03/22 07/03/22 07/03/22 07:40 07:45 08:00 08:11 Temp 38.0 Pulse 96 Resp 27 B/P (MAP) 120/70 (87) Pulse Ox 97 97 O2 Delivery Mechanical Ventilator Mechanical Ventilator O2 Flow Rate 30.00 FiO2 30 30 07/03/22 07/03/22 07/03/22 07/03/22 08:23 09:00 09:12 09:40 Temp 37.8 Pulse 95 96 96 Resp 21 B/P (MAP) 130/76 (94) 120/70 120/70 Pulse Ox 96 O2 Delivery Mechanical Ventilator O2 Flow Rate 30.00 07/03/22 07/03/22 07/03/22 07/03/22 09:55 10:00 10:30 10:59 Temp 37.9 Pulse 96 92 93 Resp 16 B/P (MAP) 133/66 124/72 (89) Pulse Ox 98 98 O2 Delivery Mechanical Ventilator O2 Flow Rate 30.00 FiO2 30 5/2907/03/22 07/03/22 07/03/22 11:00 11:45 12:00 12:00 Temp 37.5 Pulse 94 108 B/P (MAP) 139/76 (97) 154/92 (112) Pulse Ox 98 95 O2 Delivery Mechanical Ventilator Nasal Cannula Nasal Cannula O2 Flow Rate 30.00 3.00 3.00 07/03/22 13:00 Pulse 111 07/03/22 00:00 Intake Total 2480 ml Output Total 1125 ml Balance 1355 ml Constitutional: AAO x 3 Respiratory: No accessory muscle use, No respiratory distress; lungs clear to auscultation; No wheezing Cardiovascular: regular rate-rhythm, S1 and S2 Gastrointestional: soft Extremities: No pedal edema Neurologic/Psychiatric: no motor/sensory deficits, alert, normal mood/affect, oriented x 3 Skin: normal color Results/Procedures: Labs Laboratory Tests 07/02/22 17:16: Glucometer 118H 07/02/22 23:37: Glucometer 101 07/03/22 03:58: White Blood Count 8.5, Red Blood Count 2.96L, Hemoglobin 10.5L, Hematocrit 31L, Mean Corpuscular Volume 105H, Mean Corpuscular Hemoglobin 35H, Mean Corpuscular Hemoglobin Concent 34, Red Cell Distribution Width 13.1, Platelet Count 122L, Mean Platelet Volume 10.7, Immature Granulocyte % (Auto) 0, Neutrophils (%) (Auto) 80H, Lymphocytes (%) (Auto) 14, Monocytes (%) (Auto) 5, Eosinophils (%) (Auto) 1, Basophils (%) (Auto) 0, Neutrophils # (Auto) 6.8, Lymphocytes # (Auto) 1.2, Monocytes # (Auto) 0.4, Eosinophils # (Auto) 0.1, Basophils # (Auto) 0.0, Immature Granulocyte # (Auto) 0.0, Percent Immature Platelet Fraction 6.2, Sodium Level 138, Potassium Level 3.9, Chloride Level 108H, Carbon Dioxide Level 22, Anion Gap 8, Blood Urea Nitrogen 4L, Creatinine 0.66, Estimat Glomerular Filtration Rate 107, BUN/Creatinine Ratio 6, Glucose Level 87, Calcium Level 8.0L, Corrected Calcium 8.9, Phosphorus Level 1.5L, Magnesium Level 2.0, Total Bilirubin 0.5, Aspartate Amino Transf (AST/SGOT) 98H, Alanine Aminotransferase (ALT/SGPT) 40, Alkaline Phosphatase 117, Troponin I 0.033H, Total Protein 5.2L, Albumin 2.9L, Triglycerides Level 64 07/03/22 04:07: Blood Gas Puncture Site L RAD, Blood Gas Patient Temperature 37.8, Arterial Bloo d pH 7.35L, Arterial Blood Partial Pressure CO2 47H, Arterial Blood Partial Pressure O2 76L, Arterial Blood HCO3 25, Arterial Blood Total CO2 26.4, Arterial Blood Oxygen Saturation 96, Arterial Blood Base Excess 0.2, Rubén Test YES-POS, Blood Gas Ventilator Setting YES, Blood Gas Inspired Oxygen 30% 07/03/22 08:48: Lactic Acid Level 1.70 07/03/22 08:50: Urine Color YELLOW, Urine Clarity CLEAR, Urine pH 5.5, Urine Specific [place] <=1.005, Urine Protein NEGATIVE, Urine Glucose (UA) NEGATIVE, Urine Ketones NEGATIVE, Urine Nitrite NEGATIVE, Urine Bilirubin NEGATIVE, Urine Urobilinogen 0.2, Urine Leukocyte Esterase NEGATIVE, Urine RBC (Auto) NEGATIVE, Urine RBC NONE, Urine WBC RARE, Urine Crystals NONE, Urine Bacteria NEGATIVE, Urine Casts NONE, Urine Mucus NEGATIVE, Urine Culture Indicated NO 07/03/22 11:27: Glucometer 95 Microbiology 07/01/22 Blood Culture - Preliminary, Resulted No growth 07/01/22 Gram Stain - Final, Complete 07/01/22 Sputum Culture - Final, Complete Haemophilus influenza YEAST A/P: Assessment/Dx: Ventricular fibrillation, ROSC achieved. Patient is extubated - doing well unlikely STEMI, negative first troponin. serial troponin very mildly elevated. Witnessed arrest. Ventricular fibrillation. Single shock. ROSC achieved. In route EMS EKG showed possible ST elevation in leads V2 and V3 therefore patient was brought directly to the [facility] on 07/02/22. Coronary angiography did not show any occlusive coronary artery disease. Preserved LV function, however echocardiogram needs to be done. Aortogram did not show any aortic dissection. No antiplatelet or anticoagulation was given since the patient was bleeding from his face which was likely due to trauma from collapsing. Patient was already intubated/ventilated. Echocardiogram shows EF of 35 to 40%. Global hypokinesis. No LV thrombus noted. No significant valvular heart disease. No pericardial effusion. ICD before discharge. Acute hypercapnic respiratory failure, CT chest shows left lower lobe collapse/atelectasis. No PE. Positive D-dimer. According to patient is a heavy smoker and alcoholic. Significant electrolyte abnormalities with hypokalemia and hypomagnesemia. Will need repletion. CT head did not show any significant active intracranial abnormality. Plan: As above. Thank you for your consultation. Please call me if you have any questions. May Novak MD, FACP, FACC, FSCAI, FHRS, CCDS Interventional Cardiology Cardiac Electrophysiology Vascular Medicine and Endovascular Interventions Focused Exam Lactate Level 07/03/22 08:48: Lactic Acid Level 1.70 Diagnosis/Problems Diagnosis/Problems (1) Ventricular fibrillation Status: Acute Tod NOVAK MD July 03, 2022 14:34
[2022-07-03 15:09] VITALS: BP 154/92
[2022-07-03] MEDS ORDERED: morphine INJ 4 MG/ML 1 ML (VIAL/SYRINGE) ONE (20:29)
[2022-07-03] MEDS: morphine INJ 4 MG/ML 1 ML (VIAL/SYRINGE) IVP PRN ×2 (20:36→23:05)
[2022-07-03] MEDS: ENOXAPARIN 40 MG/0.4 ML (LOVENOX) SYR SC SCH (21:18)
[2022-07-03] MEDS ORDERED: LORazepam 1 MG (ATIVAN) TAB PO PRN (23:00)
[2022-07-03] MEDS: MELATONIN 3 MG TABLET PO SCH (23:05)
[2022-07-03] MEDS: LORazepam INJ 2 MG/ML (ATIVAN) VIAL IV PRN ×2 (23:06→23:57)
[2022-07-04] MEDS: HYDROcodone/APAP 5 MG/325 MG (LORTAB) TAB PO PRN (00:51)
[2022-07-04] MEDS: LORazepam INJ 2 MG/ML (ATIVAN) VIAL IV PRN ×16 (00:58→21:27)
[2022-07-04] MEDS: morphine INJ 4 MG/ML 1 ML (VIAL/SYRINGE) IVP PRN ×4 (01:38→20:04)
[2022-07-04] MEDS: PIPERACILLIN SODIUM/TAZOBACTAM 4.5 GM in NS (IVPB) 100 ML IV SCH ×3 (04:01→20:05)
[2022-07-04] MEDS: ACETAMINOPHEN 500 MG TAB (TYLENOL) PO PRN (04:07)
[2022-07-04 05:32] LABS: BASOPHILS % (AUTO) 0 % (0-10); EOSINOPHILS # (AUTO) 0.2 10^3/uL (0.0-0.3); EOSINOPHILS % (AUTO) 2 % (0-10); HEMOGLOBIN 11.9 g/dL (13.3-17.7); MEAN CORPUSCULAR VOLUME 107 fL (80-99); MEAN PLATELET VOLUME 10.7 fL (9.0-12.2)
[2022-07-04 05:34] LABS: HEMATOCRIT 35 % (40-54); LYMPHOCYTES # (AUTO) 0.9 10^3/uL (1.0-4.0); LYMPHOCYTES % (AUTO) 11 % (12-44); MEAN CORPUSCULAR HEMOGLOBIN 36 pg (25-34); MEAN CORPUSCULAR HGB CONC 34 g/dL (32-36); MONOCYTES # (AUTO) 0.6 10^3/uL (0.0-1.0); MONOCYTES % (AUTO) 7 % (0-12); NEUTROPHILS # (AUTO) 7.1 10^3/uL (1.8-7.8); NEUTROPHILS % (AUTO) 79 % (42-75); PLATELET COUNT 139 10^3/uL (130-400)
[2022-07-04 05:58] LABS: ALBUMIN 3.3 GM/DL (3.2-4.5); BILIRUBIN,TOTAL 0.9 MG/DL (0.1-1.0); CALCIUM 8.7 MG/DL (8.5-10.1); CREATININE SERUM 0.67 MG/DL (0.60-1.30); PHOSPHORUS 2.4 MG/DL (2.3-4.7); POTASSIUM 4.4 MMOL/L (3.6-5.0); TOTAL PROTEIN 6.2 GM/DL (6.4-8.2)
[2022-07-04] MEDS: THIAMINE 100 MG (VITAMIN B-1) TAB PO SCH (05:59)
[2022-07-04] MEDS: POTASSIUM CL 10MEQ/50ML IVPB 50 ML IV SCH (06:24)
[2022-07-04] MEDS: KCL 20 MEQ TAB (K-DUR) PO SCH (06:24)
[2022-07-04] MEDS: inSUlin ASPART (NovoLOG) 1 UNIT/0.01 ML (CHARGE PER UNIT) SC SCH ×4 (06:24→23:17)
[2022-07-04] MEDS: MAGNESIUM 1 GM/100 ML IVPB 100 ML IV SCH (06:24)
[2022-07-04] MEDS: D5 1/2 NS W/KCL 20 MEQ/L 1,000 ML IV SCH ×2 (06:29→12:08)
[2022-07-04] MEDS: RT-ALBUTEROL/IPRATROPIUM 3 ML (DUONEB) VIAL INH SCH ×3 (06:54→21:13)
[2022-07-04] MEDS: THIAMINE INJECTION 100 MG, FOLIC ACID INJECTION 1 MG, MAGNESIUM SULFATE 2 GM, VITAMIN M... IV SCH ×5 (08:21)
[2022-07-04] MEDS: PANTOPRAZOLE 40 MG (PROTONIX) VIAL IV SCH (08:23)
[2022-07-04] MEDS: NICOTINE 14 MG (NICODERM) PATCH TD SCH (08:23)
[2022-07-04] MEDS: FOLIC ACID 1 MG TAB PO SCH (08:23)
[2022-07-04] MEDS ORDERED: FUROSEMIDE 40 MG/4 ML INJ (LASIX) IVP NR (08:58)
--- NOTE | 2022-07-04 10:48 | Diagnostic Imaging Report ---
CHEST 1 VIEW, AP/PA ONLY Indication: Hypoxia. Comparison: 07/03/2022 Findings: Worsening bilateral perihilar consolidations. Small layering pleural effusions are present. Interstitial thickening is noted. No pneumothorax. Stable borderline cardiomegaly. ET and enteric tubes have been removed. Impression: 1. Moderate pulmonary edema has developed since yesterday's exam. Dictated by: Dictated on workstation # [id number]
--- NOTE | 2022-07-04 11:05 | Progress Note - Cardiology ---
Cardiology SO Progress Note Objective: I&O/Vital Signs 07/04/22 07/04/22 07/04/22 07/04/22 22:00 22:03 22:34 23:00 Pulse 82 92 92 62 B/P (MAP) 133/76 (92) 150/85 166/76 125/71 (90) Pulse Ox 99 90 O2 Delivery High Flow N/C High Flow N/C O2 Flow Rate 8.00 8.00 07/04/22 07/04/22 07/05/22 07/05/22 23:38 23:47 00:00 01:00 Temp 36.0 Pulse 51 56 B/P (MAP) 125/66 (85) 141/82 (98) Pulse Ox 97 94 97 O2 Delivery High Flow N/C High Flow N/C High Flow N/C O2 Flow Rate 8.00 8.00 8.00 07/05/22 07/05/22 07/05/22 07/05/22 01:00 02:00 02:03 03:00 Pulse 56 53 51 56 B/P (MAP) 154/83 (113) 125/66 163/95 (119) Pulse Ox 95 96 O2 Delivery High Flow N/C High Flow N/C O2 Flow Rate 8.00 8.00 07/05/22 07/05/22 07/05/22 07/05/22 04:00 04:00 04:00 04:34 Temp 36.5 Pulse 53 60 73 B/P (MAP) 154/83 (106) 163/92 (123) 163/92 Pulse Ox 95 98 94 O2 Delivery High Flow N/C High Flow N/C High Flow N/C O2 Flow Rate 8.00 8.00 8.00 07/05/22 07/05/22 07/05/22 07/05/22 05:00 05:33 06:00 06:43 Pulse 56 55 57 65 B/P (MAP) 153/87 (116) 153/87 155/90 (113) 155/90 Pulse Ox 99 96 O2 Delivery High Flow N/C High Flow N/C O2 Flow Rate 8.00 8.00 07/05/22 07/05/22 07/05/22 07/05/22 07:00 07:10 07:14 07:20 Pulse 71 69 Resp 34 B/P (MAP) 127/97 (107) Pulse Ox 90 97 O2 Delivery High Flow N/C High Flow N/C High Flow N/C O2 Flow Rate 8.00 8.00 5.00 07/05/22 07/05/22 07/05/22 07/05/22 07:24 07:50 08:00 09:00 Temp 36.1 Pulse 69 61 Resp 37 11 B/P (MAP) 114/84 (94) 161/95 (117) Pulse Ox 96 94 97 O2 Delivery High Flow N/C Nasal Cannula High Flow N/C High Flow N/C O2 Flow Rate 5.00 5.00 5.00 5.00 07/05/22 00:00 Intake Total 1115.2 ml Output Total 6575 ml Balance -5459.8 ml Constitutional: other (Lethargic) Respiratory: No accessory muscle use, No respiratory distress, No wheezing; other (coarse breath sounds) Cardiovascular: regular rate-rhythm, S1 and S2 Gastrointestional: soft Extremities: No pedal edema; no lower extremity edema bilateral Neurologic/Psychiatric: other (unable to cooperate with exam d/t sedation) Skin: normal color; No rash on exposed areas; other (abrasion to face) Results/Procedures: Labs Laboratory Tests 07/04/22 11:30: Blood Gas Puncture Site RIGHT RADIAL, Blood Gas Patient Temperature 37.2, Arterial Blood pH 7.37, Arterial Blood Partial Pressure CO2 57H, Arterial Blood Partial Pressure O2 82, Arterial Blood HCO3 33H, Arterial Blood Total CO2 34.3H, Arterial Blood Oxygen Saturation 96, Arterial Blood Base Excess 7.4H, Rubén Test YES-POS, Blood Gas Ventilator Setting NO, Blood Gas Inspired Oxygen 12 07/04/22 11:46: Glucometer 121H 07/04/22 18:50: Glucometer 122H 07/04/22 23:15: Glucometer 95 07/04/22 23:38: Glucometer 97 07/05/22 04:30: White Blood Count 9.1, Red Blood Count 3.59L, Hemoglobin 12.5L, Hematocrit 37L, Mean Corpuscular Volume 103H, Mean Corpuscular Hemoglobin 35H, Mean Corpuscular Hemoglobin Concent 34, Red Cell Distribution Width 12.6, Platelet Count 186, Mean Platelet Volume 10.7, Immature Granulocyte % (Auto) 1, Neutrophils (%) (Auto) 73, Lymphocytes (%) (Auto) 13, Monocytes (%) (Auto) 11, Eosinophils (%) (Auto) 2, Basophils (%) (Auto) 1, Neutrophils # (Auto) 6.6, Lymphocytes # (Auto) 1.2, Monocytes # (Auto) 1.0, Eosinophils # (Auto) 0.2, Basophils # (Auto) 0.1, Immature Granulocyte # (Auto) 0.1, Sodium Level 139, Potassium Level 3.5L, Chloride Level 100, Carbon Dioxide Level 27, Anion Gap 12, Blood Urea Nitrogen 10, Creatinine 0.63, Estimat Glomerular Filtration Rate 108, BUN/Creatinine Ratio 16, Glucose Level 83, Calcium Level 9.6, Corrected Calcium 10.2H, Phosphorus Level 2.6, Magnesium Level 1.9, Total Bilirubin 1.1H, Aspartate Amino Transf (AST/SGOT) 71H, Alanine Aminotransferase (ALT/SGPT) 53, Alkaline Phosphatase 130, Total Protein 6.4, Albumin 3.3 Microbiology 07/03/22 Blood Culture - Preliminary, Resulted No growth 07/03/22 Urine Culture - Final, Complete NO GROWTH 07/01/22 Gram Stain - Final, Complete 07/01/22 Sputum Culture - Final, Complete Haemophilus influenza YEAST Procedures NAME: CU[facility] REC#: [id number] PT STATUS: ADM IN : 1960 PHYSICIAN: BE ASCENCIO MD ADMIT DATE: 07/01/22/ICU Draft Date of Exam:07/04/22 CHEST 1 VIEW, AP/PA ONLY CHEST 1 VIEW, AP/PA ONLY Indication: Hypoxia. Comparison: 07/03/2022 Findings: Worsening bilateral perihilar consolidations. Small layering pleural effusions are present. Interstitial thickening is noted. No pneumothorax. Stable borderline cardiomegaly. ET and enteric tubes have been removed. Impression: 1. Moderate pulmonary edema has developed since yesterday's exam. Dictated on workstation # [id number] Dict: 07/04/22 1045 Trans: 07/04/22 [id number] Interpreted by: WALDO MARTIN MD Electronically signed by: A/P: Assessment: Witnessed arrest. Ventricular fibrillation. Single shock. ROSC achieved. In route EMS EKG showed possible ST elevation in leads V2 and V3 therefore patient was brought directly to the [facility] on 07/02/22. - ICD before discharge Coronary angiography on 07-02-[address] Novak - did not show any occlusive coronary artery disease. Preserved LV function, however echocardiogram needs to be done. Aortogram did not show any aortic dissection. No antiplatelet or anticoagulation was given since the patient was bleeding from his face which was likely due to trauma from collapsing. Patient was already intubated/ventilated. Intubated following cardiac arrest - currently extubated Echocardiogram shows EF of 35 to 40%. Global hypokinesis. No LV thrombus noted. No significant valvular heart disease. No pericardial effusion. Acute hypercapnic respiratory failure - CT chest shows left lower lobe collapse/atelectasis. No PE. Positive D- dimer. According to patient is a heavy smoker and alcoholic. Significant electrolyte abnormalities with hypokalemia and hypomagnesemia CT head did not show any significant active intracranial abnormality. Plan: Records from Dr. Novak reviewed in detail Witness v-fib cardiac arrest (no evidence of CAD on cardiac cath) - ? AICD prior to discharge Dilated cardiomyopathy - start HF treatment with HF meds - d/t sedation (tx for ETOH withdrawal) start IV BB, Lasix and Enalapril - change to oral medications when able to take Pulmonary congestion on CXR - give IV Lasix Lovenox for DVT prophylaxis Monitor lab closely Replace electrolytes as indicated Further recs will be based on his hospital course Advise ETOH cessation and tobacco cessation MAITE REID July 04, 2022 11:05
--- NOTE | 2022-07-04 11:08 | Progress Note - Hospitalist ---
Subjective HPI/CC On Admission Date Seen by Provider: July 04, 2022 Marcos Crawford is a 62 year old male with PMH alcohol abuse, tobacco abuse, who presented after a cardiac arrest. [place] the [place] and was about to play in a tournament. He had reportedly been feeling bad for several days. His teeth are "all rotten" and he was scheduled to have his teeth pulled next Sunday. He obtained and was taking an antibiotic from a farm store. His is unsure what the antibiotics was. She does not think they recommended he take antibiotics. He had been having body aches. She reports that he told her he felt like he was going to . He had been reporting chest pain. He did not want to go to the tournament but he had already paid for it. He is an every day drinker. His daughter says he drinks "a lot". He reportedly gets shaky when he hasn't had a drink. She does not remember him going a day without a drink. He has never been admitted to the hospital with alcohol withdrawal. He has no known medical conditions. He does not take any medications daily. EMS found him in ventricular fibrillation. ROSC was quickly obtained. He was thought to have ST elevations on the EKG and was taken directly to the medical laboratory assistant. Dr. Novak performed left heart cath which showed non-obstructive coronary artery disease and no other cause for his arrest. He was admitted to the ICU. Dr. Novak contacted the hospitalist service to assume care of the patient. Labs and imaging were ordered. TeleICU was consulted. Subjective/Events-last exam Pt extubated. Opens eyes. Answered a couple yes or no questions but unsure how appropriate it is. Focused Exam Lactate Level 07/03/22 08:48: Lactic Acid Level 1.70 Objective Exam Vital Signs Vital Signs Date Time Temp Pulse Resp B/P (MAP) Pulse Ox O2 Delivery O2 Flow Rate FiO2 07/04/22 10:00 74 35 199/114 (142) 96 High Flow N/C 12.00 07/04/22 07:38 36.6 07/03/22 10:59 30 Capillary Refill : Less Than 3 Seconds General Appearance: No Apparent Distress Respiratory: Lungs Clear Cardiovascular: No Murmur, Tachycardia Gastrointestinal: Normal Bowel Sounds, Soft Neurologic/Psychiatric: Alert, Other (tracks, follows commands, answered some questions- unsure how accurate the responses were) Results/Procedures Lab Laboratory Tests 07/04/22 04:29 Patient resulted labs reviewed. Imaging: Reviewed Imaging Films, Reviewed Imaging Report Assessment/Plan Assessment and Plan Assess & Plan/Chief Complaint Cardiac arrest Ventricular fibrillation Acute HFrEF Acute respiratory failure with hypoxia and hypercapnia Endotracheally intubated Hypokalemia Hypomagnesemia Alcohol dependence Elevated LFTs Hepatic steatosis Left lower lobe collapse Mucus plugging Misuse of medication Tobacco abuse Cardiology following, left heart cath without obstructive coronary artery d isease Electrolytes improving- replace Phosph CXR with left lower lobe collapse 07/01, resolved 07/02 now showing pulmonary edema- Lasix ordered CT chest showed left lower lobe atelectasis, hepatic steatosis, no PE or infiltrate Surgery following, no plans for bronchoscopy at this time MAT protocol TeleICU following, managing ventilator, appreciate assistance Continue Zosyn Sputum with haemophilus Unknown med was "Fishbiotic Amoxicillin" - Poison control with no recommendations CIWA protocol ordered, scheduled Ativan, vitamin replacement DVT prophylaxis: Lovenox Critical Care Ventilator Management SUBHASH MCFADDEN MD July 04, 2022 11:08
[2022-07-04] MEDS ORDERED: ENALAPRILAT 2.5 MG/2 ML (VASOTEC) VIAL IV NR ×2 (11:25→21:00)
[2022-07-04 11:42] LABS: ABG BASE EXCESS 7.4 MMOL/L (-2.5-2.5); ABG OXYGEN SATURATION 96 % (94-100); ABG PCO2 57 MMHG (35-45); ABG PH 7.37 (7.37-7.43); ABG PO2 82 MMHG (79-93); ABG TCO2 34.3 MMOL/L (21.0-31.0)
[2022-07-04 11:43] LABS: ALLENS TEST YES-POS; INSPIRED O2 12; PATIENT TEMP 37.2; VENTILATOR NO
[2022-07-04] MEDS: meTOprolol 5 MG/5 ML (LOPRESSOR) VIAL IV SCH ×3 (12:07→23:17)
--- NOTE | 2022-07-04 12:54 | Tele-ICU Progress Note ---
Subjective Date Seen by a Provider: July 04, 2022 Time Seen by a Provider: 12:23 Subjective/Events-last exam (Tele-ICU Physician, Progress note) Service provided via interactive audio and video telecommunications [facility] to a patient admitted to ICU bed in [facility]. Available chart/ vitals / labs / Images reviewed ROS as per chart and RN report Video assessment done using teleICU camera, rest of exam as per RN Discussed with RN. HPI: 62 year old male with PMH alcohol abuse, tobacco abuse, who presented s/p v fib arrest. ROSC obtained quickly. ECG on admission with ST elevations and taken to heart cath however required no interventions. He was intitially intubated and sedated now extubated. Subj: No acute events overnight. Noted to have increasing O2 requirements this AM up to 12L NC however no increased work of breathing. CXR with moderate pulmonary edema A/P Neuro: [id number] arrest. CT head no acute abnormalities Hx of etoh abuse Thiamine Folic Acid CV: Hypertensive this AM. S/p Lasix 40mg IV. TTE with EF of 35-40% -Will discuss with card re: initationg HF meds in setting of Vfib arrest. -Etiology of cardiac arrest unknown. No antiplatelet or anticoagulation was given since the patient was bleeding from his face Resp: Hypoxic resp failure likely 2/2 worsening pulmonary edema. CXR with worsening perihilar infiltrates bilaterally -CTA on admission neg for PE. Noted to have LLL atelectasis 2/2 mucus plug. -Cont IV Lasix GI: Speech eval Endo: Hyperglycemia BS 140-180 -Sliding scale insulin FEN: NPO, speech eval pending Plans in collaboration with bedside consultants and IM MDs. Discussed with RN to reach out if any questions or concerns A total of 32 minutes of critical care time was devoted to this patient today, required to treat and/or prevent further deterioration of critical care condition (as above) Sepsis Event Evaluation Height, Weight, BMI Height: '" Weight: lbs. oz. kg; 26.65 BMI Method: Focused Exam Lactate Level 07/03/22 08:48: Lactic Acid Level 1.70 Exam Exam Patient acknowledged, consented, and participated in this virtual visit which was conducted using real time audio/video Vital Signs Date Time Temp Pulse Resp B/P (MAP) Pulse Ox O2 Delivery O2 Flow Rate FiO2 07/04/22 12:00 73 25 181/103 (129) 97 High Flow N/C 12.00 07/04/22 11:44 36.3 Nasal Cannula 12.00 07/04/22 11:00 82 14 179/97 (124) 95 High Flow N/C 12.00 07/04/22 10:00 74 35 199/114 (142) 96 High Flow N/C 12.00 07/04/22 09:00 112 30 179/104 (129) 89 High Flow N/C 12.00 07/04/22 08:15 High Flow N/C 12.00 07/04/22 08:00 93 High Flow N/C 12.00 07/04/22 08:00 82 169/88 (115) 93 Nasal Cannula 4.00 07/04/22 07:38 36.6 Nasal Cannula 4.00 07/04/22 07:17 95 07/04/22 07:00 82 172/84 (113) 90 Nasal Cannula 4.00 07/04/22 07:00 91 Nasal Cannula 3.00 07/04/22 06:08 99 185/89 (121) 90 Nasal Cannula 4.00 07/04/22 05:00 88 Nasal Cannula 4.00 07/04/22 05:00 114 178/94 (122) 86 Nasal Cannula 4.00 07/04/22 04:36 37.6 07/04/22 04:09 104 162/90 (114) 87 Nasal Cannula 3.00 07/04/22 04:07 38.4 07/04/22 04:00 91 Nasal Cannula 3.00 07/04/22 03:52 37.3 07/04/22 03:00 93 167/91 (116) 89 Nasal Cannula 3.00 07/04/22 02:00 101 16 174/98 (123) 98 Nasal Cannula 3.00 07/04/22 01:00 89 07/04/22 01:00 89 7 170/94 (119) 93 Nasal Cannula 3.00 07/04/22 00:00 94 Nasal Cannula 3.00 07/04/22 00:00 100 171/92 (118) 97 Nasal Cannula 3.00 07/03/22 23:42 37.4 07/03/22 23:00 93 34 183/100 (133) 95 Nasal Cannula 3.00 07/03/22 22:26 37.2 07/03/22 22:00 106 14 171/105 (122) 99 Nasal Cannula 3.00 07/03/22 21:00 110 170/99 (111) 88 Nasal Cannula 3.00 07/03/22 20:17 91 Nasal Cannula 3.00 07/03/22 20:00 105 165/101 (125) 89 Nasal Cannula 3.00 07/03/22 19:45 96 Nasal Cannula 3.00 07/03/22 19:41 37.8 07/03/22 19:00 106 34 178/105 (126) 95 Nasal Cannula 3.00 07/03/22 19:00 106 07/03/22 18:00 109 167/96 (119) 91 Nasal Cannula 3.00 07/03/22 17:00 109 170/98 (122) 93 Nasal Cannula 3.00 07/03/22 16:06 98 Nasal Cannula 3.00 07/03/22 16:00 112 184/101 (128) 93 Nasal Cannula 3.00 07/03/22 15:56 37.1 07/03/22 15:13 93 Nasal Cannula 3.00 07/03/22 15:09 37.9 111 97 07/03/22 15:00 108 160/87 (111) 94 Nasal Cannula 3.00 07/03/22 14:40 37.9 07/03/22 14:00 108 156/78 (104) 93 Nasal Cannula 3.00 07/03/22 13:00 110 158/90 (112) 92 Nasal Cannula 3.00 07/03/22 13:00 111 I & O 07/04/22 06:59 Intake Total 5010 ml Output Total 5100 ml Balance -90 ml Height & Weight Height: '" Weight: lbs. oz. kg; 26.65 BMI Method: General Appearance: No Apparent Distress HEENT: Other (endotracheal tube in place) Respiratory: Lungs Clear Cardiovascular: No Murmur, Tachycardia Capillary Refill: Less Than 3 Seconds Gastrointestinal: normal bowel sounds, non tender, soft, no organomegaly; No distended Extremity: No Pedal Edema Neurologic/Psychiatric: Alert, Other (tracks, follows commands, answered some questions- unsure how accurate the responses were) Skin: Normal Color Results Lab Laboratory Tests 07/03/22 03:58 07/04/22 04:29 Assessment/Plan Assessment/Plan . BE ASCENCIO MD July 04, 2022 12:54
[2022-07-04] MEDS ORDERED: ACET-2267 PO (13:08)
[2022-07-04] MEDS ORDERED: DIPH25TA65 PO (13:08)
[2022-07-04] MEDS ORDERED: IBUP-2473 PO (13:08)
--- NOTE | 2022-07-04 13:54 | Speech Therapy Progress Note ---
Therapy Progress Note Speech pathology received the clinical bedside swallowing evaluation consult and attempted the assessment at 1350. At this time, the patient did not display an appropriate level of alertness for P.O. trials. Regardless of maximum clinician verbal prompting and encouragement, the patient remained with eyes closed, snoring. The RN was present outside the room and updated following the attempt. ST will continue attempts to complete the assessment as the patient is ap propriate. Thank you for the consultation. OJSH REHMAN July 04, 2022 13:54
--- NOTE | 2022-07-04 14:15 | Physical Therapy Progress Note ---
Therapy Progress Note Orders received, chart reviewed, patient discussed with nurse. Nurse requests hold at this time due to medical instability. She reports patient is in withdrawl and his O2 requirements have increased from 2 L via nasal cannula to 12 L today. Will continue to monitor and evaluate patient when medically appropriate. MISBAH MCCOY PT July 04, 2022 14:15
--- NOTE | 2022-07-04 14:23 | Occ Therapy Progress Note ---
Therapy Progress Note Orders received, chart reviewed,. Nurse requests hold at this time due to medical instability, patient is in withdrawl and his O2 requirements have increased from 2 L via nasal cannula to 12 L today. Will continue to monitor and evaluate patient when medically appropriate. LUIS RIOS OT July 04, 2022 14:22
[2022-07-04] MEDS: FUROSEMIDE 40 MG/4 ML INJ (LASIX) IVP SCH (16:52)
[2022-07-04] MEDS ORDERED: AMIODARONE FOR BOLUS 150 MG in NS (IVPB) 100 ML IV ONE (18:00)
--- NOTE | 2022-07-04 19:29 | Progress Note - Cardiology ---
Cardiology SOAP Progress Note Subjective: Currently sedated by the [facility] due to agitation He is not able to provide any meaningful history Objective: I&O/Vital Signs 07/04/22 07/04/22 07/04/22 07/04/22 07:38 08:00 08:00 08:15 Temp 36.6 Pulse 82 B/P (MAP) 169/88 (115) Pulse Ox 93 93 O2 Delivery Nasal Cannula Nasal Cannula High Flow N/C High Flow N/C O2 Flow Rate 4.00 4.00 12.00 12.00 07/04/22 07/04/22 07/04/22 07/04/22 09:00 10:00 11:00 11:44 Temp 36.3 Pulse 112 74 82 Resp 30 35 14 B/P (MAP) 179/104 (129) 199/114 (142) 179/97 (124) Pulse Ox 89 96 95 O2 Delivery High Flow N/C High Flow N/C High Flow N/C Nasal Cannula O2 Flow Rate 12.00 12.00 12.00 12.00 07/04/22 07/04/22 07/04/22 07/04/22 12:00 12:00 12:42 13:00 Pulse 73 82 59 Resp 25 25 B/P (MAP) 181/103 (129) 159/90 (113) Pulse Ox 95 97 97 O2 Delivery High Flow N/C High Flow N/C High Flow N/C O2 Flow Rate 12.00 12.00 12.00 07/04/22 07/04/22 07/04/22 07/04/22 14:00 14:59 15:00 15:05 Pulse 73 68 Resp 25 25 B/P (MAP) 169/106 (127) 159/80 (106) Pulse Ox 97 95 93 O2 Delivery High Flow N/C Nasal Cannula High Flow N/C High Flow N/C O2 Flow Rate 12.00 10.00 12.00 8.00 07/04/22 07/04/22 07/04/22 07/04/22 15:47 16:00 17:00 18:00 Pulse 57 71 92 B/P (MAP) 151/91 (111) 150/73 (98) 150/85 (106) Pulse Ox 95 96 95 96 O2 Delivery High Flow N/C High Flow N/C High Flow N/C High Flow N/C O2 Flow Rate 8.00 8.00 8.00 8.00 07/04/22 00:00 Intake Total 2440 ml Output Total 3375 ml Balance -935 ml Constitutional: other (Lethargic) Respiratory: No accessory muscle use, No respiratory distress, No wheezing; other (coarse breath sounds) Cardiovascular: regular rate-rhythm, S1 and S2 Gastrointestional: soft Extremities: No pedal edema; no lower extremity edema bilateral Neurologic/Psychiatric: other (unable to cooperate with exam d/t sedation) Skin: normal color; No rash on exposed areas; other (abrasion to face) Results/Procedures: Labs Laboratory Tests 07/03/22 23:27: Glucometer 112H 07/04/22 04:29: White Blood Count 9.0, Red Blood Count 3.31L, Hemoglobin 11.9L, Hematocrit 35L, Mean Corpuscular Volume 107H, Mean Corpuscular Hemoglobin 36H, Mean Corpuscular Hemoglobin Concent 34, Red Cell Distribution Width 13.0, Platelet Count 139, Mean Platelet Volume 10.7, Immature Granulocyte % (Auto) 1, Neutrophils (%) (Auto) 79H, Lymphocytes (%) (Auto) 11L, Monocytes (%) (Auto) 7, Eosinophils (%) (Auto) 2, Basophils (%) (Auto) 0, Neutrophils # (Auto) 7.1, Lymphocytes # (Auto) 0.9L, Monocytes # (Auto) 0.6, Eosinophils # (Auto) 0.2, Basophils # (Auto) 0.0, Immature Granulocyte # (Auto) 0.1, Percent Immature Platelet Fraction 5.8, Sodium Level 138, Potassium Level 4.4, Chloride Level 107, Carbon Dioxide Level 24, Anion Gap 7, Blood Urea Nitrogen 4L, Creatinine 0.67, Estimat Glomerular Filtration Rate 106, BUN/Creatinine Ratio 6, Glucose Level 95, Calcium Level 8.7, Corrected Calcium 9.3, Phosphorus Level 2.4, Magnesium Level 2.0, Total Bilirubin 0.9, Aspartate Amino Transf (AST/SGOT) 119H, Alanine Aminotransferase (ALT/SGPT) 64H, Alkaline Phosphatase 159H, Total Protein 6.2L, Albumin 3.3 07/04/22 11:30: Blood Gas Puncture Site RIGHT RADIAL, Blood Gas Patient Temperature 37.2, Arterial Blood pH 7.37, Arterial Blood Partial Pressure CO2 57H, Arterial Blood Partial Pressure O2 82, Arterial Blood HCO3 33H, Arterial Blood Total CO2 34.3H, Arterial Blood Oxygen Saturation 96, Arterial Blood Base Excess 7.4H, Rubén Test YES-POS, Blood Gas Ventilator Setting NO, Blood Gas Inspired Oxygen 12 07/04/22 11:46: Glucometer 121H 07/04/22 18:50: Glucometer 122H Microbiology 07/03/22 Blood Culture - Preliminary, Resulted No growth 07/03/22 Urine Culture - Final, Complete NO GROWTH 07/01/22 Gram Stain - Final, Complete 07/01/22 Sputum Culture - Final, Complete Haemophilus influenza YEAST A/P: Assessment: Witnessed arrest. Ventricular fibrillation. Single shock. ROSC achieved. EKG showed possible ST elevation in leads V2 and V3 therefore patient was brought directly to the [facility] on 07/02/22. - ICD before discharge Coronary angiography on 07-02-[address] Novak - did not show any occlusive coronary artery disease. Preserved LV function (ho wever, subsequent echo showed cardiomyopath. Aortogram did not show any aortic dissection. No antiplatelet or anticoagulation was given since the patient was bleeding from his face which was likely due to trauma from collapsing. Patient was already intubated/ventilated. Intubated following cardiac arrest - currently extubated Echocardiogram shows EF of 35 to 40%. Global hypokinesis. No LV thrombus noted. No significant valvular heart disease. No pericardial effusion. Acute hypercapnic respiratory failure - CT chest shows left lower lobe collapse/atelectasis. No PE. Positive D- dimer. According to patient is a heavy smoker and alcoholic. Significant electrolyte abnormalities with hypokalemia and hypomagnesemia CT head did not show any significant active intracranial abnormality. Plan: Records from Dr. Novak reviewed in detail Witness v-fib cardiac arrest (no evidence of CAD on cardiac cath) - Would need AICD prior to discharge, but we are not able to communicate adequa tely with him to obtain informed consent - begin amiodarone Dilated cardiomyopathy - start HF treatment with HF meds - d/t sedation (tx for ETOH withdrawal) start IV BB, Lasix and Enalapril - change to oral medications when able to take Pulmonary congestion on CXR - give IV Lasix Lovenox for DVT prophylaxis Monitor lab closely Replace electrolytes as indicated Further recs will be based on his hospital course Advise ETOH cessation and tobacco cessation THA MURILLO MD FACP FAC CCDS July 04, 2022 19:29
[2022-07-04] MEDS: MELATONIN 3 MG TABLET PO SCH (20:41)
[2022-07-04] MEDS: ENOXAPARIN 40 MG/0.4 ML (LOVENOX) SYR SC SCH (20:41)
[2022-07-04] MEDS: AMIODARONE INJECTION 450 MG in NORMAL SALINE 250 ML IV SCH (20:41)
[2022-07-04] MEDS ORDERED: DexMEDEtomidine 250 ML DRIP 250 ML IV ONE (22:00)
[2022-07-04] MEDS: DexMEDEtomidine 250 ML DRIP 250 ML IV SCH (22:03)
[2022-07-05] MEDS: PIPERACILLIN SODIUM/TAZOBACTAM 4.5 GM in NS (IVPB) 100 ML IV SCH ×3 (03:50→20:46)
[2022-07-05] MEDS: AMIODARONE INJECTION 450 MG in NORMAL SALINE 250 ML IV SCH ×2 (04:35→14:58)
[2022-07-05 05:01] LABS: BASOPHILS # (AUTO) 0.1 10^3/uL (0.0-0.1); BASOPHILS % (AUTO) 1 % (0-10); EOSINOPHILS # (AUTO) 0.2 10^3/uL (0.0-0.3); EOSINOPHILS % (AUTO) 2 % (0-10); HEMATOCRIT 37 % (40-54); HEMOGLOBIN 12.5 g/dL (13.3-17.7); LYMPHOCYTES # (AUTO) 1.2 10^3/uL (1.0-4.0); LYMPHOCYTES % (AUTO) 13 % (12-44); MEAN CORPUSCULAR HEMOGLOBIN 35 pg (25-34); MEAN CORPUSCULAR HGB CONC 34 g/dL (32-36); MEAN CORPUSCULAR VOLUME 103 fL (80-99); MEAN PLATELET VOLUME 10.7 fL (9.0-12.2); MONOCYTES % (AUTO) 11 % (0-12); NEUTROPHILS # (AUTO) 6.6 10^3/uL (1.8-7.8); NEUTROPHILS % (AUTO) 73 % (42-75); PLATELET COUNT 186 10^3/uL (130-400); WHITE BLOOD COUNT 9.1 10^3/uL (4.3-11.0)
[2022-07-05 05:16] LABS: ALBUMIN 3.3 GM/DL (3.2-4.5); POTASSIUM 3.5 MMOL/L (3.6-5.0)
[2022-07-05 05:17] LABS: CALCIUM 9.6 MG/DL (8.5-10.1)
[2022-07-05 05:19] LABS: TOTAL PROTEIN 6.4 GM/DL (6.4-8.2)
[2022-07-05 05:21] LABS: BILIRUBIN,TOTAL 1.1 MG/DL (0.1-1.0)
[2022-07-05 05:22] LABS: CREATININE SERUM 0.63 MG/DL (0.60-1.30); PHOSPHORUS 2.6 MG/DL (2.3-4.7)
[2022-07-05 05:25] LABS: MAGNESIUM 1.9 MG/DL (1.6-2.4)
[2022-07-05] MEDS: MAGNESIUM 1 GM/100 ML IVPB 100 ML IV SCH ×5 (05:26→19:40)
[2022-07-05] MEDS: KCL 20 MEQ TAB (K-DUR) PO SCH (05:26)
[2022-07-05] MEDS: inSUlin ASPART (NovoLOG) 1 UNIT/0.01 ML (CHARGE PER UNIT) SC SCH ×4 (05:27→23:49)
[2022-07-05] MEDS: meTOprolol 5 MG/5 ML (LOPRESSOR) VIAL IV SCH ×4 (05:28→23:16)
[2022-07-05] MEDS: POTASSIUM CL 10MEQ/50ML IVPB 50 ML IV SCH ×9 (05:28→19:40)
[2022-07-05] MEDS: FUROSEMIDE 40 MG/4 ML INJ (LASIX) IVP SCH ×2 (05:49→16:27)
[2022-07-05] MEDS: morphine INJ 4 MG/ML 1 ML (VIAL/SYRINGE) IVP PRN ×2 (06:42→23:14)
[2022-07-05] MEDS: RT-ALBUTEROL/IPRATROPIUM 3 ML (DUONEB) VIAL INH SCH ×3 (07:14→19:06)
[2022-07-05] MEDS: PANTOPRAZOLE 40 MG (PROTONIX) VIAL IV SCH (07:39)
[2022-07-05] MEDS: LORazepam INJ 2 MG/ML (ATIVAN) VIAL IV PRN ×5 (07:39→23:15)
[2022-07-05] MEDS: FOLIC ACID 1 MG TAB PO SCH (07:39)
[2022-07-05] MEDS: NICOTINE 14 MG (NICODERM) PATCH TD SCH (07:40)
--- NOTE | 2022-07-05 09:47 | Progress Note - Cardiology ---
Cardiology SOAP Progress Note Subjective: Lying in bed Sedated this morning Unable to provide any meaningful information Objective: I&O/Vital Signs 07/05/22 07/05/22 07/05/22 07/05/22 22:00 22:00 23:00 23:51 Temp 36.4 Pulse 69 61 65 Resp 13 B/P (MAP) 159/102 159/102 (121) 174/88 (116) Pulse Ox 95 95 O2 Delivery High Flow N/C High Flow N/C O2 Flow Rate 3.00 3.00 07/05/22 07/06/22 07/06/22 07/06/22 23:59 00:00 01:00 01:00 Pulse 67 80 64 B/P (MAP) 156/132 (140) 175/96 (122) Pulse Ox 98 92 97 O2 Delivery High Flow N/C High Flow N/C High Flow N/C O2 Flow Rate 3.00 3.00 3.00 07/06/22 07/06/22 07/06/22 07/06/22 01:07 02:00 03:00 03:21 Pulse 65 59 58 65 B/P (MAP) 175/96 178/98 (124) 181/94 (123) 175/96 Pulse Ox 93 97 O2 Delivery High Flow N/C High Flow N/C O2 Flow Rate 3.00 3.00 07/06/22 07/06/22 07/06/22 07/06/22 03:52 04:00 04:00 05:00 Temp 36.2 Pulse 57 55 B/P (MAP) 188/98 (128) 177/105 (129) Pulse Ox 95 95 94 O2 Delivery High Flow N/C High Flow N/C High Flow N/C O2 Flow Rate 3.00 3.00 3.00 07/06/22 07/06/22 07/06/22 07/06/22 06:00 07:00 07:30 07:55 Temp 36.4 Pulse 55 53 49 B/P (MAP) 179/80 (113) 178/102 (127) Pulse Ox 95 94 O2 Delivery High Flow N/C High Flow N/C O2 Flow Rate 3.00 3.00 07/06/22 07/06/22 08:00 09:00 Pulse 60 57 Resp 32 B/P (MAP) 180/92 (121) 170/90 (116) Pulse Ox 95 93 O2 Delivery High Flow N/C High Flow N/C O2 Flow Rate 3.00 3.00 07/06/22 00:00 Intake Total 500 ml Output Total 500 ml Balance 0 ml Constitutional: other (Lethargic) Respiratory: No accessory muscle use, No respiratory distress, No wheezing; other (coarse breath sounds) Cardiovascular: regular rate-rhythm, S1 and S2 Gastrointestional: soft Extremities: No pedal edema; no lower extremity edema bilateral Neurologic/Psychiatric: other (unable to cooperate with exam d/t sedation) Skin: normal color; No rash on exposed areas; other (abrasion to face) Results/Procedures: Labs Laboratory Tests 07/05/22 11:35: Glucometer 79 07/05/22 15:30: Potassium Level 3.6, Magnesium Level 1.7, Troponin I < 0.028 07/05/22 17:42: Glucometer 91 07/05/22 23:45: Glucometer 87 07/06/22 04:13: White Blood Count 9.3, Red Blood Count 3.68L, Hemoglobin 13.3, Hematocrit 37L, Mean Corpuscular Volume 100H, Mean Corpuscular Hemoglobin 36H, Mean Corpuscular Hemoglobin Concent 36, Red Cell Distribution Width 12.5, Platelet Count 243, Mean Platelet Volume 11.0, Immature Granulocyte % (Auto) 1, Neutrophils (%) (Auto) 67, Lymphocytes (%) (Auto) 13, Monocytes (%) (Auto) 16H, Eosinophils (%) (Auto) 2, Basophils (%) (Auto) 1, Neutrophils # (Auto) 6.2, Lymphocytes # (Auto) 1.2, Monocytes # (Auto) 1.5H, Eosinophils # (Auto) 0.2, Basophils # (Auto) 0.1, Immature Granulocyte # (Auto) 0.1, Sodium Level 137, Potassium Level 3.3L, Chloride Level 101, Carbon Dioxide Level 25, Anion Gap 11, Blood Urea Nitrogen 18, Creatinine 0.62, Estimat Glomerular Filtration Rate 109, BUN/Creatinine Ratio 29, Glucose Level 87, Calcium Level 9.5, Corrected Calcium 10.1, Phosphorus Level 3.1, Magnesium Level 2.1, Total Bilirubin 0.8, Aspartate Amino Transf (AST/SGOT) 50H, Alanine Aminotransferase (ALT/SGPT) 46, Alkaline Phosphatase 121, Total Protein 6.3L, Albumin 3.2 Microbiology 07/03/22 Blood Culture - Preliminary, Resulted No growth 07/03/22 Urine Culture - Final, Complete NO GROWTH 07/01/22 Gram Stain - Final, Complete 07/01/22 Sputum Culture - Final, Complete Haemophilus influenza YEAST A/P: Assessment: Witnessed arrest. Ventricular fibrillation. Single shock. ROSC achieved. EKG showed possible ST elevation in leads V2 and V3 therefore patient was brought directly to the [facility] on 07/02/22. - ICD before discharge Coronary angiography on 07-02-[address] Novak - did not show any occlusive coronary artery disease. Preserved LV function (however, subsequent echo showed cardiomyopath. Aortogram did not show any aortic dissection. No antiplatelet or anticoagulation was given since the patient was bleeding from his face which was likely due to trauma from collapsin g. Patient was already intubated/ventilated. Intubated following cardiac arrest - currently extubated Echocardiogram shows EF of 35 to 40%. Global hypokinesis. No LV thrombus noted. No significant valvular heart disease. No pericardial effusion. Acute hypercapnic respiratory failure - CT chest shows left lower lobe collapse/atelectasis. No PE. Positive D- dimer. According to patient is a heavy smoker and alcoholic. Significant electrolyte abnormalities with hypokalemia and hypomagnesemia CT head did not show any significant active intracranial abnormality. Plan: Witness v-fib cardiac arrest (no evidence of CAD on cardiac cath) - Would need AICD prior to discharge, but we are not able to communicate adequately with him to obtain informed consent - begin amiodarone - change to oral when IV load completed and able to take oral medications Dilated cardiomyopathy - start HF treatment with HF meds - d/t sedation (tx for ETOH withdrawal) start IV BB, Lasix and Enalapril - change to oral medications when able to take Pulmonary congestion on CXR - continue Lasix Lovenox for DVT prophylaxis Monitor lab closely Replace electrolytes as indicated Further recs will be based on his hospital course Advise ETOH cessation and tobacco cessation MAITE REID July 05, 2022 09:47
--- NOTE | 2022-07-05 11:00 | Progress Note - Hospitalist ---
Subjective HPI/CC On Admission Date Seen by Provider: July 05, 2022 Marcos Crawford is a 62 year old male with PMH alcohol abuse, tobacco abuse, who presented after a cardiac arrest. [place] the [place] and was about to play in a tournament. He had reportedly been feeling bad for several days. His teeth are "all rotten" and he was scheduled to have his teeth pulled next Sunday. He obtained and was taking an antibiotic from a farm store. His is unsure what the antibiotics was. She does not think they recommended he take antibiotics. He had been having body aches. She reports that he told her he felt like he was going to . He had been reporting chest pain. He did not want to go to the tournament but he had already paid for it. He is an every day drinker. His daughter says he drinks "a lot". He reportedly gets shaky when he hasn't had a drink. She does not remember him going a day without a drink. He has never been admitted to the hospital with alcohol withdrawal. He has no known medical conditions. He does not take any medications daily. EMS found him in ventricular fibrillation. ROSC was quickly obtained. He was thought to have ST elevations on the EKG and was taken directly to the laboratory analyst. Dr. Novak performed left heart cath which showed non-obstructive coronary artery disease and no other cause for his arrest. He was admitted to the ICU. Dr. Novak contacted the hospitalist service to assume care of the patient. Labs and imaging were ordered. TeleICU was consulted. Subjective/Events-last exam Pt more alert. Trying to take oxygen probe off finger. No specific complaints. Returned to room to talk to family and update them on progress. Focused Exam Lactate Level 07/03/22 08:48: Lactic Acid Level 1.70 Objective Exam Vital Signs Vital Signs Date Time Temp Pulse Resp B/P (MAP) Pulse Ox O2 Delivery O2 Flow Rate FiO2 07/05/22 10:00 55 16 151/96 (114) 98 High Flow N/C 5.00 07/05/22 07:50 36.1 07/03/22 10:59 30 Capillary Refill : Less Than 3 Seconds General Appearance: No Apparent Distress, Chronically ill Cardiovascular: Regular Rate, Rhythm, No Murmur Gastrointestinal: Normal Bowel Sounds, Soft Neurologic/Psychiatric: Alert, Oriented x3 Results/Procedures Lab Laboratory Tests 07/05/22 04:30 Patient resulted labs reviewed. Imaging: Reviewed Imaging Films, Reviewed Imaging Report Assessment/Plan Assessment and Plan Assess & Plan/Chief Complaint Cardiac arrest Ventricular fibrillation Acute HFrEF Acute respiratory failure with hypoxia and hypercapnia Endotracheally intubated Hypokalemia Hypomagnesemia Alcohol dependence Elevated LFTs Hepatic steatosis Left lower lobe collapse Mucus plugging Misuse of medication Tobacco abuse Cardiology following, left heart cath without obstructive coronary artery disease CXR with left lower lobe collapse 07/01, resolved 07/02 now showing pulmonary edema- Lasix ordered CT chest showed left lower lobe atelectasis, hepatic steatosis, no PE or infiltrate Surgery following, no plans for bronchoscopy at this time MAT protocol TeleICU following, managing ventilator, appreciate assistance Continue Zosyn Sputum with haemophilus Unknown med was "Fishbiotic Amoxicillin" - Poison control with no recommendations CIWA protocol ordered, scheduled Ativan, vitamin replacement PT/OT IRF eval On amiodarone, will likely need LifeVest/AICD before DC DVT prophylaxis: Lovenox Critical Care Ventilator Management SUBHASH MCFADDEN MD July 05, 2022 11:00
--- NOTE | 2022-07-05 12:30 | Tele-ICU Progress Note ---
Subjective Date Seen by a Provider: July 05, 2022 Time Seen by a Provider: 12:30 Subjective/Events-last exam . (Tele-ICU Physician , Progress Note ) Service provided via interactive audio and video telecommunications E-CARE system to a patient admitted to ICU bed in [facility]. Patient is seen today due to persistent need of ICU care Available chart/ vitals / labs / Images reviewed Video assessment done using teleICU camera, rest of exam as per RN Discussed with RN Events overnight : Afebrile hemodynamically stable Hospital course: (07/01) 62 y/o M - Cardiac Arrest - Direct to Spa Consultant - No intervention - Coronaries clean. CTA NEG PE. Asp PNA. (07/03) Exxtubated at 1145. (07/04) Increased O2 need. lasix given A/P Cardiac arrest outside of hospital - Initial rhythm was V fib and he was shocked to sinus tachycardia ( ROSC time not clear , presumed short ) No PE on CT - as per cards - ICD before discharge -EF of 35 to 40%. Global hypokinesis. No LV thrombus noted. No significant valvular heart disease. No pericardial effusion. Acute resp failure post arrest - intubated 07/01-(07/03) Exxtubated at 1145. S.p fall post arrest - CT head - no bleed Encephalopathy - on precedex 0.4 for DT , follow closely LLL PNA vs infitrate - ABX to finish ETON abuse - CIWA , precedex Nutrition - fales swallow - reassess VTE Prophylaxis: manosor Stress Ulcer Prophylaxis: ppi Plans in collaboration with bedside consultants and IM MDs. Discussed with RN to reach out if any questions or concerns Case and care daily discussed on multidisciplinary rounds ( RN, PharmD, Coil Assembler , Respiratory Therapy, scaffold worker ) A total of 25 minutes of critical care time was devoted to this patient today, required to treat and/or prevent further deterioration of critical care condition ( as above ) . I am remotely monitoring this patient from another state. I am unable to do the bedside exam, and history/physical and pertinent information is taken from other notes in the computer and bedside staff. Sepsis Event Evaluation Height, Weight, BMI Height: '" Weight: lbs. oz. kg; 24.92 BMI Method: Focused Exam Lactate Level 07/03/22 08:48: Lactic Acid Level 1.70 Exam Exam Patient acknowledged, consented, and participated in this virtual visit which was conducted using real time audio/video Vital Signs Date Time Temp Pulse Resp B/P (MAP) Pulse Ox O2 Delivery O2 Flow Rate FiO2 07/05/22 12:00 36.2 Nasal Cannula 3.00 07/05/22 10:00 55 16 151/96 (114) 98 High Flow N/C 5.00 07/05/22 09:00 61 11 161/95 (117) 97 High Flow N/C 5.00 07/05/22 08:00 98 High Flow N/C 4.00 07/05/22 08:00 69 37 114/84 (94) 94 High Flow N/C 5.00 07/05/22 07:50 36.1 Nasal Cannula 5.00 07/05/22 07:24 96 High Flow N/C 5.00 07/05/22 07:20 High Flow N/C 5.00 07/05/22 07:14 97 High Flow N/C 8.00 07/05/22 07:10 69 07/05/22 07:00 71 34 127/97 (107) 90 High Flow N/C 8.00 07/05/22 06:43 65 155/90 07/05/22 06:00 57 155/90 (113) 96 High Flow N/C 8.00 07/05/22 05:33 55 153/87 07/05/22 05:00 56 153/87 (116) 99 High Flow N/C 8.00 07/05/22 04:34 73 163/92 07/05/22 04:00 60 163/92 (123) 94 High Flow N/C 8.00 07/05/22 04:00 98 High Flow N/C 8.00 07/05/22 04:00 36.5 53 154/83 (106) 95 High Flow N/C 8.00 07/05/22 03:00 56 163/95 (119) 96 High Flow N/C 8.00 07/05/22 02:03 51 125/66 07/05/22 02:00 53 154/83 (113) 95 High Flow N/C 8.00 07/05/22 01:00 56 07/05/22 01:00 56 141/82 (98) 97 High Flow N/C 8.00 5/31/23 00:00 51 125/66 (85) 94 High Flow N/C 8.00 07/04/22 23:47 36.0 07/04/22 23:38 97 High Flow N/C 8.00 07/04/22 23:00 62 125/71 (90) 90 High Flow N/C 8.00 07/04/22 22:34 92 166/76 07/04/22 22:03 92 150/85 07/04/22 22:00 82 133/76 (92) 99 High Flow N/C 8.00 07/04/22 21:13 94 Nasal Cannula 8.00 07/04/22 21:00 87 137/72 (90) 98 High Flow N/C 8.00 07/04/22 20:00 81 117/71 (92) 97 High Flow N/C 8.00 07/04/22 20:00 96 High Flow N/C 8.00 07/04/22 19:00 73 103/67 (76) 98 High Flow N/C 8.00 07/04/22 19:00 73 07/04/22 18:00 92 150/85 (106) 96 High Flow N/C 8.00 07/04/22 17:00 71 150/73 (98) 95 High Flow N/C 8.00 07/04/22 16:00 57 151/91 (111) 96 High Flow N/C 8.00 07/04/22 15:47 95 High Flow N/C 8.00 07/04/22 15:05 High Flow N/C 8.00 07/04/22 15:00 68 25 159/80 (106) 93 High Flow N/C 12.00 07/04/22 14:59 95 Nasal Cannula 10.00 07/04/22 14:00 73 25 169/106 (127) 97 High Flow N/C 12.00 07/04/22 13:00 59 25 159/90 (113) 97 High Flow N/C 12.00 07/04/22 12:42 82 I & O 07/05/22 07:00 Intake Total 1524.2 ml Output Total 7625 ml Balance -6100.8 ml Height & Weight Height: '" Weight: lbs. oz. kg; 24.92 BMI Method: General Appearance: No Apparent Distress, Chronically ill HEENT: Other (endotracheal tube in place) Respiratory: Lungs Clear Cardiovascular: Regular Rate, Rhythm, No Murmur Capillary Refill: Less Than 3 Seconds Gastrointestinal: normal bowel sounds, non tender, soft, no organomegaly; No distended Extremity: No Pedal Edema Neurologic/Psychiatric: Alert, Oriented x3 Skin: Normal Color Results Lab Laboratory Tests 07/04/22 04:29 07/05/22 04:30 Assessment/Plan Assessment/Plan 1 QIANA STRONG MD July 05, 2022 12:30
[2022-07-05] MEDS ORDERED: FUROSEMIDE 40 MG/4 ML INJ (LASIX) IVP SCH (13:00)
--- NOTE | 2022-07-05 13:20 | Speech Therapy Daily Note ---
Speech Daily Progress Note Subjective Date Seen by Provider: July 05, 2022 Time Seen by Provider: 12:45 The patient was reclined in bed with eyes intermittently opened upon entrance to his room by the clinician. The patient has his RN present as well as two family members. The patient's head of bed is elevated for safe swallowing posture. Maximum verbal prompting was required for minimal alertness and participation. Intermittent mumbling was produced by the patient, with intelligibility judged to be less than 20%. Objective The patient is displaying weak, productive coughing at baseline. Currently, the patient is receiving 4 to 5 liters of supplemental oxygen via nasal cannula. The patient is unable to consume liquids through straws. Rounding his lips but not display appropriate coordination for retrieval. The patient accepts three teaspoons of water and four teaspoons of applesauce, only. Maximum verbal prompting was provided by the clinician and family members present in room for continued P.O. intake however the patient was unable to sustain attention. The patient attempts to remove himself from bed intermittently and requests to be reclined. At this time, the patient no longer accepts oral intake. Recommendations: - The patient should continue N.P.O. status pending improved alertness and abil ity to safely participate. - Frequent and excellent oral care. - Speech pathology to re-assess the patient as appropriate. The clinician provided the results to the patient, the RN, and the present family members. Treatment Plan Continue Plan of Care Speech-Plan Treatment Plan Speech Therapy Treatment Plan: Continue Plan of Care Frequency: 4 times per week Estimated Hrs Per Day: .25 hour per day Rehab Potential: Guarded Safety Risks/Education Teaching Recipient: Patient, Family Teaching Methods: Discussion Response to Teaching: Verbalize Understanding Time Speech Therapy Time In: 12:45 Speech Therapy Time Out: 13:15 DATE: July 05, 2022 Total Billed Time: 30 Billed Treatment Time 1, EDIN JIMENEZSTEFAN NANCE July 05, 2022 13:20
--- NOTE | 2022-07-05 14:26 | ST Dysphagia Evaluation ---
Speech Evaluation-General Medical Diagnosis s/p Cardiac Arrest Onset Date: July 01, 2022 Therapy Diagnosis Therapy Diagnosis: Suspected Oropharyngeal Dysphagia Precautions Precautions: Fall, Pressure Ulcer, Aspiration Precautions/Isolations: Aspiration, Standard Precautions, Pressure Ulcer Referral Referring Physician: Dr. Burciaga Reason for Referral: Evaluation/Treatment Medical History Reviewed History: Yes Speech PLF/Current-Dysphagia Prior Level of Function Prior level of function is unknown to this clinician at the time of the evaluation. Due to the patient's current mentation (confused), the patient is unable to provide accurate information to the clinician. Subjective The patient was reclined in bed with eyes intermittently opened upon entrance to his room by the clinician. The patient has his RN present as well as two family members. The patient's head of bed is elevated for safe swallowing posture. Maximum verbal prompting was required for minimal alertness and participation. Intermittent mumbling was produced by the patient, with intelligibility judged to be less than 20%. The patient was reclined in bed with eyes intermittently opened upon entrance to his room by the clinician. The patient has his RN present as well as two family members. The patient's head of bed is elevated for safe swallowing posture. Maximum verbal prompting was required for minimal alertness and participation. Intermittent mumbling was produced by the patient, with intelligibility judged to be less than 20%. Cognitive Status Patient Orientation: Confused Oral Motor Skills Ability to Follow Directions: Poor Oral Expression Ability: Moderate Impairment Voice Voice Phonatory-Based Quality: Normal Voice Loudness: Moderately Soft/Quiet Face Facial Symmetry: Symmetrical Oral-Facial Assessment Oral-Facial Dentition: Normal Labial Seal Description: Weak, Poor Coordination Productive Cough: Yes Productive Throat Clear: Yes Dysphagia Evaluation Consistencies Presented: Thin Liquid (ice chip, teaspoon), Pureed The patient is unable to consume liquids through straws, rounding his lips but not displaying appropriate coordination for retrieval. The patient accepts three teaspoons of water and four teaspoons of applesauce, only. Maximum verbal prompting was provided by the clinician and family members present in room for continued P.O. intake however the patient was unable to sustain attention. Laryngeal elevation was present to palpation and appeared [place]l [place]. The patient did not display overt s/s of suspected aspiration with the limited P.O. trials presented over an extended period of time. The patient attempts to remove himself from bed intermittently and requests to be reclined. At this time, the patient no longer accepts oral intake regardless of maximum verbal encouragement. Dietary Recommendations: NPO Liquid Recommendations: NPO Recommendations: - The patient should continue N.P.O. status pending improved alertness and ability to safely participate. - Frequent and excellent oral care to reduce the transfer of oral bacteria to the lungs should aspiration of secretions occur. - Speech pathology to re-assess the patient's oropharyngeal swallow function, as appropriate. The clinician provided the results to the patient, the RN, and the present family members. The process of evaluation was explained to the family members as well as risk factors for increased aspiration. Dysphagia Evaluation Summary At this time, the patient's largest barrier to diet advancement is sustained alertness and appropriate participation in a complete evaluation. Speech Short Term Goals Short Term Goals Short Term Goals 1. The patient, staff, and family members will demonstrate safe swallowing precautions with 80% accuracy, independently. Speech Chcf Goals Records Management Specialist Goals 1. The patient will tolerate the least restrictive diet consistency without s/s of suspected aspiration. Time Frame: Five Days. Speech-Plan Treatment Plan Speech Therapy Treatment Plan: Continue Plan of Care Treatment Duration: Jul 12, 2022 Frequency: 4 times per week Estimated Hrs Per Day: .25 hour per day Rehab Potential: Guarded Safety Risks/Education Teaching Recipient: Patient, Family Teaching Methods: Discussion Response to Teaching: Verbalize Understanding (Family.) Education Topics Provided: Results, Recommendations, Plan of Care Time Speech Therapy Time In: 12:45 Speech Therapy Time Out: 13:05 DATE: July 05, 2022 Total Billed Time: 20 Billed Treatment Time 1, JOSH CONTRERAS July 05, 2022 14:26
--- NOTE | 2022-07-05 15:13 | Physical Therapy Evaluation ---
PT Evaluation-General Medical Diagnosis Admission Date July 01, 2022 at 11:28 Medical Diagnosis: s/p Cardiac Arrest Onset Date: July 01, 2022 Therapy Diagnosis Therapy Diagnosis: Gait deficit, strength deficit Precautions Precautions/Isolations: Aspiration, Standard Precautions, Pressure Ulcer Weight Bear Status Right Lower Extremity: Right Full Weight Bearing Left Lower Extremity: Left Full Weight Bearing Referral Physician: Dr. Ruth Reason for Referral: Evaluation/Treatment Medical History Reviewed History: Yes Social History Home: Multilevel Current Living Status: Spouse Entry Into Home: Stairs With Railing PT Steps Into Home: 5 PT Steps Inside Home: 14 Prior Prior Level of Function SCALE: Activities may be completed with or without assistive devices. 1-Ihhcgcbbyj-hcphyhz completes the activity by him/herself with no assistance from a helper. 5-Set-up or Clean-up Assistance-helper sets up or cleans up; patient completes activity. [place] assists only prior to or following the activity. 4-Supervision or Touching Assistance-helper provides verbal cues and/or touching/steadying and/or contact guard assistance as patient completes activity. Assistance may be provided throughout the activity or intermittently. 3-Partial/Moderate Assistance-helper does LESS THAN HALF the effort. [place] lifts, holds or supports trunk or limbs, but provides less than half the effort. 2-Substantial/Maximal Assistance-helper does MORE THAN HALF the effort. [place] lifts or holds trunk or limbs and provides more than half the effort. 8-Zxnxxgzep-irfhpn does ALL the effort. Patient does none of the effort to complete the activity. Or, the assistance of 2 or more helpers is required for the patient to complete the activity. If activity was not attempted, code reason: 7-Patient Refused. 9-Not Applicable-not attempted and the patient did not perform the activity before the current illness, exacerbation or injury. 10-Not Attempted due to Environmental Limitations-(lack of equipment, weather restraints, etc.). 88-Not Attempted due to Medical Conditions or Safety Concerns. Bed Mobility: 6 Transfers (B,C,W/C): 6 Gait: 6 Stairs: 6 Indoor Mobility (Ambulation): Independent Stairs: Independent Prior Devices Use: None PT Evaluation-Current Subjective Patient lying supine in bed upon PT arrival, brother in the room. Patient responds minimally to verbal and tactile cues. Brother provides entire subjective portion. Objective Patient Orientation: Unable to Assess Attachments: Oxygen, Bach Catheter, IV ROM/Strength ROM Lower Extremities WFLs BLEs to PROM all planes Strength Lower Extremities Unable to assess due to cognition, however patient does demonstrate ability to move BLEs in most planes Sensory Vision: Functional Hearing: Functional Sensation Lower Extremities Unable to assess Transfers Roll Left to Right (QC): 1 Sit to Lying (QC): 1 Lying to Sitting/Side of Bed(Q: 1 Gait Does the Patient Walk?: No and Walking Goal IS indicated Balance Sitting Static: Poor Sitting Dynamic: Poor Assessment/Needs Patient opens his eyes occassionally and attempts to speak, but all words are nonsensical and unintelligible. Patient requires total A for all bed mobility and transfers. Patient sits at EOB ~ 5 minutes with max to total assistance. Patient retropulsive throughout treatment. Patient able to lean forwards minimally, but never requires less than mod/max A to maintain sitting. Patient requires total A for return to bed. Patient in bed post treatment with family in the room, all needs met, nursing notified, call light in reach. Rehab Potential: Guarded PT Penitentiary Goals Senior Process Control Tech Goals PT Penitentiary Goals Time Frame: Aug 04, 2022 Roll Left & Right (QC): 3 Sit to Lying (QC): 3 Lying-Sitting on Side/Bed(QC): 3 Sit to Stand (QC): 3 Chair/Rdw-ba-Edbsi Xfer(QC): 3 Toilet Transfer (QC): 3 Does the Patient Walk: Yes Walk 10 feet (QC): 3 Walk 50ft with 2 Turns (QC): 3 Walk 150 ft (QC): 3 1 Step (curb) (QC): 2 4 Steps (QC): 2 PT Plan Problem List Problem List: Activity Tolerance, Functional Strength, Safety, Balance, Gait, Transfer, Bed Mobility, ROM Treatment/Plan Treatment Plan: Continue Plan of Care Treatment Plan: Bed Mobility, Education, Functional Activity Mirtha, Functional Strength, Group Therapy, Gait, Safety, Therapeutic Exercise, Transfers Treatment Duration: Aug 04, 2022 Frequency: 6 times per week Estimated Hrs Per Day: .25 hour per day Patient and/or Family Agrees t: Yes Safety Risks/Education Patient Education: Transfer Techniques, Correct Positioning, Safety Issues Teaching Recipient: Patient Teaching Methods: Demonstration, Discussion Response to Teaching: Reinforcement Needed Time Time In: 1050 Time Out: 1110 DATE: July 05, 2022 Total Billed Treatment Time: 20 Total Billed Treatment Visit, MISBAH LOZANO PT July 05, 2022 15:13
--- NOTE | 2022-07-05 15:22 | Occ Therapy Progress Note ---
Therapy Progress Note Family in room, request OT return d/t recently completed PT evaluation. OT will monitor for patient availability LUIS RIOS OT July 05, 2022 15:22
[2022-07-05 15:54] LABS: POTASSIUM 3.6 MMOL/L (3.6-5.0)
[2022-07-05 16:01] LABS: MAGNESIUM 1.7 MG/DL (1.6-2.4)
--- NOTE | 2022-07-05 17:47 | Progress Note - Cardiology ---
Cardiology SOAP Progress Note Subjective: Answers some questions: denies cp or palp or shortness of breath or other symptoms Objective: I&O/Vital Signs 07/05/22 07/05/22 07/05/22 07/05/22 06:00 06:43 07:00 07:10 Pulse 57 65 71 69 Resp 34 B/P (MAP) 155/90 (113) 155/90 127/97 (107) Pulse Ox 96 90 O2 Delivery High Flow N/C High Flow N/C O2 Flow Rate 8.00 8.00 07/05/22 07/05/22 07/05/22 07/05/22 07:14 07:20 07:24 07:50 Temp 36.1 B/P (MAP) Pulse Ox 97 96 O2 Delivery High Flow N/C High Flow N/C High Flow N/C Nasal Cannula O2 Flow Rate 8.00 5.00 5.00 5.00 07/05/22 07/05/22 07/05/22 07/05/22 08:00 08:00 09:00 10:00 Pulse 69 61 55 Resp 37 11 16 B/P (MAP) 114/84 (94) 161/95 (117) 151/96 (114) Pulse Ox 94 98 97 98 O2 Delivery High Flow N/C High Flow N/C High Flow N/C High Flow N/C O2 Flow Rate 5.00 4.00 5.00 5.00 07/05/22 07/05/22 07/05/22 07/05/22 11:00 12:00 12:00 12:00 Temp 36.2 Pulse 64 52 Resp 16 16 B/P (MAP) 139/90 (106) 147/92 (110) Pulse Ox 94 95 98 O2 Delivery High Flow N/C High Flow N/C Nasal Cannula High Flow N/C O2 Flow Rate 5.00 3.00 3.00 3.00 07/05/22 07/05/22 07/05/22 07/05/22 13:00 13:14 14:00 15:00 Pulse 62 62 61 56 Resp 20 B/P (MAP) 167/84 (111) 175/92 (119) Pulse Ox 95 97 95 O2 Delivery High Flow N/C High Flow N/C High Flow N/C O2 Flow Rate 3.00 3.00 3.00 5/31/07/05/22 07/05/22 07/05/22 15:31 15:35 16:00 17:00 Temp 35.8 Pulse 53 57 Resp 37 36 B/P (MAP) 158/94 (115) 137/76 (96) Pulse Ox 95 92 93 O2 Delivery OxyMask High Flow N/C High Flow N/C O2 Flow Rate 4.00 3.00 3.00 07/04/22 23:59 Intake Total 1115.2 ml Output Total 6575 ml Balance -5459.8 ml Constitutional: No AAO x 3; other (Lethargic, confused, somnolent) Respiratory: No accessory muscle use, No respiratory distress, No wheezing; other (coarse breath sounds) Cardiovascular: regular rate-rhythm, S1 and S2 Gastrointestional: soft Extremities: No pedal edema; no lower extremity edema bilateral Neurologic/Psychiatric: other (unable to cooperate with exam d/t sedation) Skin: normal color; No rash on exposed areas; other (abrasion to face) Results/Procedures: Labs Laboratory Tests 07/04/22 18:50: Glucometer 122H 07/04/22 23:15: Glucometer 95 07/04/22 23:38: Glucometer 97 07/05/22 04:30: White Blood Count 9.1, Red Blood Count 3.59L, Hemoglobin 12.5L, Hematocrit 37L, Mean Corpuscular Volume 103H, Mean Corpuscular Hemoglobin 35H, Mean Corpuscular Hemoglobin Concent 34, Red Cell Distribution Width 12.6, Platelet Count 186, Mean Platelet Volume 10.7, Immature Granulocyte % (Auto) 1, Neutrophils (%) (Auto) 73, Lymphocytes (%) (Auto) 13, Monocytes (%) (Auto) 11, Eosinophils (%) (Auto) 2, Basophils (%) (Auto) 1, Neutrophils # (Auto) 6.6, Lymphocytes # (Auto) 1.2, Monocytes # (Auto) 1.0, Eosinophils # (Auto) 0.2, Basophils # (Auto) 0.1, Immature Granulocyte # (Auto) 0.1, Sodium Level 139, Potassium Level 3.5L, Chloride Level 100, Carbon Dioxide Level 27, Anion Gap 12, Blood Urea Nitrogen 10, Creatinine 0.63, Estimat Glomerular Filtration Rate 108, BUN/Creatinine Ratio 16, Glucose Level 83, Calcium Level 9.6, Corrected Calcium 10.2H, Phosphorus Level 2.6, Magnesium Level 1.9, Total Bilirubin 1.1H, Aspartate Amino Transf (AST/SGOT) 71H, Alanine Aminotransferase (ALT/SGPT) 53, Alkaline Phosphatase 130, Total Protein 6.4, Albumin 3.3 07/05/22 11:35: Glucometer 79 07/05/22 15:30: Potassium Level 3.6, Magnesium Level 1.7, Troponin I < 0.028 07/05/22 17:42: Glucometer 91 Microbiology 07/03/22 Blood Culture - Preliminary, Resulted No growth 07/03/22 Urine Culture - Final, Complete NO GROWTH 07/01/22 Gram Stain - Final, Complete 07/01/22 Sputum Culture - Final, Complete Haemophilus influenza YEAST A/P: Assessment: Witnessed arrest. Ventricular fibrillation. Single shock. ROSC achieved. EKG showed possible ST elevation in leads V2 and V3 therefore patient was brought directly to the Director Of Special Events on 07/02/22. - ICD before discharge Coronary angiography on 07-02-[address] Novak - did not show any occlusive coronary artery disease. Preserved LV function (however, subsequent echo showed cardiomyopath. Aortogram did not show any aortic dissection. No antiplatelet or anticoagulation was given since the patient was bleeding from his face which was likely due to trauma from collapsing. Patient was already intubated/ventilated. Intubated following cardiac arrest - currently extubated Echocardiogram shows EF of 35 to 40%. Global hypokinesis. No LV thrombus noted. No significant valvular heart disease. No pericardial effusion. Acute hypercapnic respiratory failure - CT chest shows left lower lobe collapse/atelectasis. No PE. Positive D- dimer. According to patient is a heavy smoker and alcoholic. Significant electrolyte abnormalities with hypokalemia and hypomagnesemia CT head did not show any significant active intracranial abnormality. Plan: Witness v-fib cardiac arrest (no evidence of CAD on cardiac cath) - Would need AICD prior to discharge, but we are not able to communicate adequately with him to obtain informed consent - amiodarone - change to oral when IV load completed and able to take oral medications Dilated cardiomyopathy - start HF treatment with HF meds - d/t sedation (tx for ETOH withdrawal) start IV BB, Lasix and Enalapril - change to oral medications when able to take Pulmonary congestion on CXR - continue Lasix Lovenox for DVT prophylaxis Monitor lab closely Replace electrolytes as indicated Further recs will be based on his hospital course Advise ETOH cessation and tobacco cessation THA MURILLO MD FACP FAC CCDS July 05, 2022 17:47
[2022-07-05] MEDS: ENOXAPARIN 40 MG/0.4 ML (LOVENOX) SYR SC SCH (20:46)
[2022-07-05] MEDS: MELATONIN 3 MG TABLET PO SCH (20:47)
[2022-07-05] MEDS ORDERED: AMIODARONE 200 MG (CORDARONE) TAB PO SCH (21:00)
[2022-07-06] MEDS: LORazepam INJ 2 MG/ML (ATIVAN) VIAL IV PRN ×2 (01:11→01:59)
[2022-07-06] MEDS: PIPERACILLIN SODIUM/TAZOBACTAM 4.5 GM in NS (IVPB) 100 ML IV SCH ×3 (03:21→19:42)
[2022-07-06] MEDS: DexMEDEtomidine 250 ML DRIP 250 ML IV SCH (03:21)
[2022-07-06 04:35] LABS: BASOPHILS # (AUTO) 0.1 10^3/uL (0.0-0.1); BASOPHILS % (AUTO) 1 % (0-10); EOSINOPHILS # (AUTO) 0.2 10^3/uL (0.0-0.3); EOSINOPHILS % (AUTO) 2 % (0-10); HEMATOCRIT 37 % (40-54); HEMOGLOBIN 13.3 g/dL (13.3-17.7); LYMPHOCYTES # (AUTO) 1.2 10^3/uL (1.0-4.0); LYMPHOCYTES % (AUTO) 13 % (12-44); MEAN CORPUSCULAR HEMOGLOBIN 36 pg (25-34); MEAN CORPUSCULAR HGB CONC 36 g/dL (32-36); MEAN CORPUSCULAR VOLUME 100 fL (80-99); MONOCYTES # (AUTO) 1.5 10^3/uL (0.0-1.0); MONOCYTES % (AUTO) 16 % (0-12); NEUTROPHILS # (AUTO) 6.2 10^3/uL (1.8-7.8); NEUTROPHILS % (AUTO) 67 % (42-75); PLATELET COUNT 243 10^3/uL (130-400); WHITE BLOOD COUNT 9.3 10^3/uL (4.3-11.0)
[2022-07-06 04:49] LABS: ALBUMIN 3.2 GM/DL (3.2-4.5)
[2022-07-06 04:50] LABS: POTASSIUM 3.3 MMOL/L (3.6-5.0)
[2022-07-06 04:51] LABS: CALCIUM 9.5 MG/DL (8.5-10.1)
[2022-07-06 04:52] LABS: TOTAL PROTEIN 6.3 GM/DL (6.4-8.2)
[2022-07-06 04:54] LABS: BILIRUBIN,TOTAL 0.8 MG/DL (0.1-1.0)
[2022-07-06 04:55] LABS: PHOSPHORUS 3.1 MG/DL (2.3-4.7)
[2022-07-06 04:56] LABS: CREATININE SERUM 0.62 MG/DL (0.60-1.30)
[2022-07-06 04:58] LABS: MAGNESIUM 2.1 MG/DL (1.6-2.4)
[2022-07-06] MEDS: MAGNESIUM 1 GM/100 ML IVPB 100 ML IV SCH (05:13)
[2022-07-06] MEDS: inSUlin ASPART (NovoLOG) 1 UNIT/0.01 ML (CHARGE PER UNIT) SC SCH ×3 (05:13→18:16)
[2022-07-06] MEDS: KCL 20 MEQ TAB (K-DUR) PO SCH (05:13)
[2022-07-06] MEDS: POTASSIUM CL 10MEQ/50ML IVPB 50 ML IV SCH ×9 (05:18→13:52)
[2022-07-06] MEDS: meTOprolol 5 MG/5 ML (LOPRESSOR) VIAL IV SCH ×4 (05:18→18:55)
--- NOTE | 2022-07-06 09:29 | Physical Therapy Daily Note ---
PT Daily Note-Current Subjective Patient more alert after RN stops sedation. Family present. Pain Section J - Health Conditions 1. Rarely or not at all 2. Occasionally 3. Frequently 4. Almost constantly 8. Unable to answer Pain Effect on Sleep: 8 Pain Interference with Therapy: 8 Pain Interference w/Day-to-Day: 8 Mental Status Patient Orientation: Person Attachments: Oxygen, Bach Catheter, IV Transfers SCALE: Activities may be completed with or without assistive devices. 5-Owieuaxiti-kyfonbe completes the activity by him/herself with no assistance f rom a helper. 5-Set-up or Clean-up Assistance-helper sets up or cleans up; patient completes activity. [place] assists only prior to or following the activity. 4-Supervision or Touching Assistance-helper provides verbal cues and/or touching/steadying and/or contact guard assistance as patient completes activity. Assistance may be provided throughout the activity or intermittently. 3-Partial/Moderate Assistance-helper does LESS THAN HALF the effort. [place] lifts, holds or supports trunk or limbs, but provides less than half the effort. 2-Substantial/Maximal Assistance-helper does MORE THAN HALF the effort. [place] lifts or holds trunk or limbs and provides more than half the effort. 4-Otybhlymn-vcvlim does ALL the effort. Patient does none of the effort to complete the activity. Or, the assistance of 2 or more helpers is required for the patient to complete the activity. If activity was not attempted, code reason: 7-Patient Refused. 9-Not Applicable-not attempted and the patient did not perform the activity before the current illness, exacerbation or injury. 10-Not Attempted due to Environmental Limitations-(lack of equipment, weather restraints, etc.). 88-Not Attempted due to Medical Conditions or Safety Concerns. Lying to Sitting/Side of Bed(Q: 1 Sit to Stand (QC): 1 Chair/Ion-fx-Wdfxg Xfer(QC): 1 Weight Bearing Right Lower Extremity: Right Full Weight Bearing Left Lower Extremity: Left Full Weight Bearing Gait Training Does the Patient Walk?: No and Walking Goal IS indicated Exercises Seated Therapy Exercises: Long arc quads (5 AAROM) Assessment Patient sat EOB for several minutes with PT/OT assist to attain and maintain. Noted deformity right shoulder with RN notified who contacted physician. Patient is dependent of 2 with all mobility and is up in recliner with chair alarm activated and family present. PT Operation Specialist Goals Operation Specialist Goals PT Operation Specialist Goals Time Frame: Aug 04, 2022 Roll Left & Right (QC): 3 Sit to Lying (QC): 3 Lying-Sitting on Side/Bed(QC): 3 Sit to Stand (QC): 3 Chair/Vox-yp-Szcbd Xfer(QC): 3 Toilet Transfer (QC): 3 Does the Patient Walk: Yes Walk 10 feet (QC): 3 Walk 50ft with 2 Turns (QC): 3 Walk 150 ft (QC): 3 1 Step (curb) (QC): 2 4 Steps (QC): 2 PT Plan Treatment/Plan Treatment Plan: Continue Plan of Care Treatment Plan: Bed Mobility, Education, Functional Activity Mirtha, Functional Strength, Group Therapy, Gait, Safety, Therapeutic Exercise, Transfers Treatment Duration: Aug 04, 2022 Frequency: 6 times per week Estimated Hrs Per Day: .25 hour per day Patient and/or Family Agrees t: Yes Time Time In: 900 Time Out: 923 DATE: Jul 06, 2022 Total Billed Treatment Time: 23 Total Billed Treatment 1 visit FA x 2 23 min TOM JEROME PT Jul 06, 2022 09:29
--- NOTE | 2022-07-06 09:30 | Occupational Therapy Eval ---
OT Evaluation-General/PLF Medical Diagnosis Admission Date July 01, 2022 at 11:28 Medical Diagnosis: s/p Cardiac Arrest Onset Date: July 01, 2022 Therapy Diagnosis Therapy Diagnosis: weakness, debility Precautions Precautions/Isolations: Fall Prevention, Standard Precautions Safety Interventions: Bed Exit Alarm (chair alarm) Weight Bear Status Weight Bearing Restriction: Full Weight Bearing Referral Physician: Dr. Ruth Referral Reason: Activity Tolerance, Self Care, Evaluation/Treatment, Strengthe sandrine/ROM Medical History Additional Medical History Marcos Crawford is a 62 year old male with PMH alcohol abuse, tobacco abuse, who presented after a cardiac arrest. He was at the [employer] [place] and was about to play in a tournament. He had reportedly been feeling bad for several days. His teeth are "all rotten" and he was scheduled to have his teeth pulled next Sunday. He obtained and was taking an antibiotic from a farm store. His is unsure what the antibiotics was. She does not think they recommended he take antibiotics. He had been having body aches. She reports that he told her he felt like he was going to . He had been reporting chest pain. He did not want to go to the tournament but he had already paid for it. He is an every day drinker. His daughter says he drinks "a lot". He reportedly gets shaky when he hasn't had a drink. She does not remember him going a day without a drink. He has never been admitted to the hospital with alcohol withdrawal. He has no known medical conditions. He does not take any medications daily.EMS found him in ventricular fibrillation. ROSC was quickly obtained. He was thought to have ST elevations on the EKG and was taken directly to the operations label clerk. Dr. Novak performed left heart cath which showed non-obstructive coronary artery disease and no other cause for his arrest. He was admitted to the ICU. Dr. Novak contacted the hospitalist service to assume care of the patient. Labs and imaging were ordered. TeleICU was consulted. Current History Patient is extubated, PT has begun and ST working to evaluate.Patient sister is present to asssit w/ interview questions. 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 OT has noted in Right UE an inferior anterior rotation and inability valentin ROM on command, unable to hold 90 flexion/and abduct on position. Patient doesn't use right UE to wipe mouth, nose or hold swab sponge.Sister report patient right handed. OT request further diagnostics of RUE Reviewed History: Yes Social History Home: Multilevel Current Living Status: Spouse Entry Into Home: Stairs With Railing Steps Into Home: 5 Steps Inside Home: 14 ADL-Prior Level of Function SCALE: Activities may be completed with or without assistive devices. 7-Cappumqdnw-zivtbsb completes the activity by him/herself with no assistance fr om a helper. 5-Set-up or Clean-up Assistance-helper sets up or cleans up; patient completes activity. [place] assists only prior to or following the activity. 4-Supervision or Touching Assistance-helper provides verbal cues and/or touching/steadying and/or contact guard assistance as patient completes activity. Assistance may be provided throughout the activity or intermittently. 3-Partial/Moderate Assistance-helper does LESS THAN HALF the effort. [place] lifts, holds or supports trunk or limbs, but provides less than half the effort. 2-Substantial/Maximal Assistance-helper does MORE THAN HALF the effort. [place] lifts or holds trunk or limbs and provides more than half the effort. 8-Hnebwrkro-bhekag does ALL the effort. Patient does none of the effort to complete the activity. Or, the assistance of 2 or more helpers is required for the patient to complete the activity. If activity was not attempted, code reason: 7-Patient Refused. 9-Not Applicable-not attempted and the patient did not perform the activity before the current illness, exacerbation or injury. 10-Not Attempted due to Environmental Limitations-(lack of equipment, weather restraints, etc.). 88-Not Attempted due to Medical Conditions or Safety Concerns. Self Care: Independent Functional Cognition: Needed Some Help Drive Self: Yes OT Current Status Subjective Patient gives consent for treatment, sister is present Mental Status/Objective Patient Orientation: Person Patient requires orientation of date, hospital and events of week. Repeats statement about wter during session Attachments: Bach Catheter, IV, Oxygen, Telemetry Current Upper Extremity ROM RUE ROM impaired w/ facial grimace of pain, see previous comments. audible cr epitating noted with internal rotation of shoulder and elevation Upper Extremity Strength RUE 2/5 LUE +3/5 ADL-Treatment Eating (QC): 88 (ST to evaluate) Oral Hygiene (QC): 4 (hand over hand placement on sponge swab required) Shower/Bathe Self (QC): 88 Upper Body Dressing (QC): 3 Lower Body Dressing (QC): 1 On/Off Footwear (QC): 1 Toileting Hygiene (QC): 1 Max assist of 2 for bed to recliner transfer, max assist for posture reposition and alignment in recliner Education OT Patient Education: Correct positioning, Instructions to caregiver, Modified ADL techniques, Progress toward Goal/Update tx plan, Purpose of tx/functional activities, Reviewed precautions, Rehab process, Safety issues, Transfer techniques Teaching Recipient: Patient, Family Teaching Methods: Demonstration, Discussion Response to Teaching: Reinforcement Needed OT Battalion Chief Goals Mcfp Goals Eating (QC): 5 Oral Hygiene (QC): 6 Toileting Hygiene (QC): 5 Shower/Bathe Self (QC): 5 Upper Body Dressing (QC): 5 Lower Body Dressing (QC): 5 On/Off Footwear (QC): 6 1=Demonstrate adherence to instructed precautions during ADL tasks. 2=Patient will verbalize/demonstrate understanding of assistive devices/modifications for ADL. 3=Patient will improve strength/tolerance for activity to enable patient to perform ADL's. OT Education/Plan Problem List/Assessment Assessment: Decreased Activ Tolerance, Decreased Safety Aware, Decreased UE Strength, Dependent Transfers, Impaired Bed Mobility, Impaired Cognition, Impaired Coordination, Impaired Funct Balance, Impaired Self-Care Skills Discharge Recommendations Plan/Recommendations: Continue POC Treatment Plan/Plan of Care Treatment,Training & Education: Yes Patient would benefit from OT for education, treatment and training to promote independence in ADL's, mobility, safety and/or upper extremity function for ADL's. Plan of Care: ADL Retraining, Caregiver Training, Cognitive Retraining, Concurrent Therapy, Functional Mobility, Group Exercise/Act as Ind, UE Funct Exercise/Act, UE Neuromus Re-Ed/Coord Treatment Duration: Jul 15, 2022 Frequency: 3 times per week (3-5 times per week) Estimated Hrs Per Day: .25 hour per day Agreement: Yes Rehab Potential: Guarded Remains in recliner w/ alarm set, family in room all needs met Time Start Time: 09:00 Stop Time: 09:23 DATE: Jul 06, 2022 Total Time Billed (hr/min): 23 Billed Treatment Time EVM 1, EX 1 23 min LUIS RIOS OT Jul 06, 2022 09:30
--- NOTE | 2022-07-06 09:32 | Progress Note - Cardiology ---
Cardiology SOAP Progress Note Subjective: Sitting up in recliner at the bedside Spouse at the bedside He is more alert Gen weakness No c/o CP or SOB Reports some dizziness with changes in position Objective: I&O/Vital Signs 07/07/22 07/07/22 07/07/22 07/07/22 00:00 00:00 01:00 01:00 Pulse 73 84 86 Resp 22 26 B/P (MAP) 146/85 (105) 152/98 (116) Pulse Ox 94 93 93 O2 Delivery High Flow N/C High Flow N/C High Flow N/C O2 Flow Rate 4.00 3.00 4.00 07/07/22 07/07/22 07/07/22 07/07/22 02:00 03:00 04:00 04:00 Pulse 63 66 85 Resp 24 23 37 B/P (MAP) 177/96 (123) 167/77 (107) 163/90 (114) Pulse Ox 94 96 96 93 O2 Delivery High Flow N/C High Flow N/C High Flow N/C High Flow N/C O2 Flow Rate 4.00 4.00 4.00 3.00 07/07/22 07/07/22 07/07/22 07/07/22 05:00 06:00 07:00 07:00 Pulse 71 90 67 69 Resp 28 25 B/P (MAP) 166/82 (110) 129/58 (81) 141/83 (102) Pulse Ox 92 90 96 O2 Delivery High Flow N/C High Flow N/C High Flow N/C O2 Flow Rate 4.00 4.00 4.00 07/07/22 07/07/22 07/07/22 07/07/22 07:32 08:00 08:00 09:00 Temp 36.2 Pulse 71 78 B/P (MAP) 156/76 (102) 139/94 (109) Pulse Ox 95 91 95 O2 Delivery High Flow N/C High Flow N/C High Flow N/C O2 Flow Rate 4.00 4.00 4.00 07/07/22 10:00 Pulse 53 B/P (MAP) 134/66 (88) Pulse Ox 93 O2 Delivery High Flow N/C O2 Flow Rate 4.00 07/07/22 00:00 Intake Total 300 ml Output Total 525 ml Balance -225 ml Constitutional: other (Awake, alert, oriented to self and place) Respiratory: No accessory muscle use, No respiratory distress, No wheezing; other (coarse breath sounds) Cardiovascular: regular rate-rhythm, S1 and S2 Gastrointestional: soft Extremities: No pedal edema; no lower extremity edema bilateral Neurologic/Psychiatric: other (unable to cooperate with exam d/t sedation) Skin: normal color; No rash on exposed areas; other (abrasion to face) Results/Procedures: Labs Laboratory Tests 07/06/22 11:34: Glucometer 75 07/06/22 18:16: Glucometer 82 07/07/22 01:13: Glucometer 83 07/07/22 05:23: White Blood Count 9.5, Red Blood Count 3.50L, Hemoglobin 12.3L, Hematocrit 36L, Mean Corpuscular Volume 102H, Mean Corpuscular Hemoglobin 35H, Mean Corpuscular Hemoglobin Concent 35, Red Cell Distribution Width 12.6, Platelet Count 277, Mean Platelet Volume 10.6, Immature Granulocyte % (Auto) 1, Neutrophils (%) (Auto) 69, Lymphocytes (%) (Auto) 11L, Monocytes (%) (Auto) 17H, Eosinophils (%) (Auto) 1, Basophils (%) (Auto) 1, Neutrophils # (Auto) 6.6, Lymphocytes # (Auto) 1.1, Monocytes # (Auto) 1.6H, Eosinophils # (Auto) 0.1, Basophils # (Auto) 0.1, Immature Granulocyte # (Auto) 0.1, Sodium Level 138, Potassium Level 3.3L, Chloride Level 104, Carbon Dioxide Level 24, Anion Gap 10, Blood Urea Nitrogen 18, Creatinine 0.65, Estimat Glomerular Filtration Rate 107, BUN/Creatinine Ratio 28, Glucose Level 80, Calcium Level 9.8, Corrected Calcium 10.3H, Phosphorus Level 2.5, Magnesium Level 1.8, Total Bilirubin 0.7, Aspartate Amino Transf (AST/SGOT) 42H, Alanine Aminotransferase (ALT/SGPT) 42, Alkaline Phosphatase 115, Total Protein 6.5, Albumin 3.4 Microbiology 07/03/22 Blood Culture - Preliminary, Resulted No growth 07/03/22 Urine Culture - Final, Complete NO GROWTH 07/01/22 Gram Stain - Final, Complete 07/01/22 Sputum Culture - Final, Complete Haemophilus influenza YEAST A/P: Assessment: Witnessed arrest. Ventricular fibrillation. Single shock. ROSC achieved. EKG showed possible ST elevation in leads V2 and V3 therefore patient was brought directly to the Development Manager on 07/02/22. - ICD before discharge Episodes of bradycardia yesterday - Amiodarone gtt stopped - no further episodes Coronary angiography on 07-02-[address] Novak - did not show any occlusive coronary artery disease. Preserved LV function (however, subsequent echo showed cardiomyopath. Aortogram did not show any aortic dissection. No antiplatelet or anticoagulation was given since the patient was bleeding from his face which was likely due to trauma from collapsing. Patient was already intubated/ventilated. Intubated following cardiac arrest - currently extubated Echocardiogram shows EF of 35 to 40%. Global hypokinesis. No LV thrombus noted. No significant valvular heart disease. No pericardial effusion. Acute hypercapnic respiratory failure - CT chest shows left lower lobe collapse/atelectasis. No PE. Positive D- dimer. According to patient is a heavy smoker and alcoholic. Significant electrolyte abnormalities with hypokalemia and hypomagnesemia CT head did not show any significant active intracranial abnormality. Plan: Witness v-fib cardiac arrest (no evidence of CAD on cardiac cath) - Would need AICD prior to discharge - more alert today Episodes of bradycardia yesterday (had been receiving freq sedation d/t ETOH withdrawal as well) - Amiodarone gtt stopped and BB has been held - Improved Dilated cardiomyopathy - start HF treatment with HF meds - d/t sedation (tx for ETOH withdrawal) start IV BB, Lasix and Enalapril - change to oral medications when able to take Uncontrolled HTN - increase Enalapril today Reduce diuretics CXR today Lovenox for DVT prophylaxis Monitor lab closely Replace electrolytes as indicated Advise ETOH cessation and tobacco cessation MAITE REID Jul 06, 2022 09:32
--- NOTE | 2022-07-06 10:00 | Diagnostic Imaging Report ---
INDICATION: Shortness of breath Portable chest 9:32 AM Heart size and pulmonary vascularity are normal. There is large area of consolidation in the left lower chest. Right lung is clear. IMPRESSION: Left basilar consolidation could be due to infiltrate and/or atelectasis. Dictated by: Dictated on workstation # [id number]
--- NOTE | 2022-07-06 10:01 | Diagnostic Imaging Report ---
INDICATION: Right shoulder pain Two views of the right shoulder show no fracture, dislocation or other acute abnormalities. IMPRESSION: Negative right shoulder. Dictated by: Dictated on workstation # [id number]
--- NOTE | 2022-07-06 10:06 | Tele-ICU Progress Note ---
Subjective Date Seen by a Provider: Jul 06, 2022 Subjective/Events-last exam This virtual visit was conducted using real time audio/video. Thank you for asking us to see this patient for respiratory insufficiency due to vfib arrest, STEMI and aspiration pna. Recent events: Extubated 07/03 PE: Appears comfortable.VSS. O2 sat 95% on 3 LPM. HEENT: No obvious masses, adenopathy or JVD. Chest: coarse on auscultation. CV: RRR S1 S2 No murmur or added sounds. Abd: Non-tender. Bowel sounds Y. : Unremarkable. Bach Y. CNC PROGRAMMER/psychiatric: Grossly intact. No obvious focal findings. Extremities: No edema. Capillary refill < 3 seconds. Skin: unremarkable. Results: Decreased K 3.3. CXR: Hyperinflated, much improved B infiltrates. Available chart/ vitals / labs / images reviewed. Video assessment done using teleICU camera, rest of exam as per RN. A/P: Respiratory insufficiency: Continue present management with O2, duonebs, nicotine patch. Critical Care: critically ill patient. Off Precedex. Cont. CIWA, amiod., mansoor., Metop., SSI, lasix. Consider tele transfer. Discussed with RN Daysi. Asked RN to reach out to eICU if any questions or concerns later. Time spent with patient/coordination of care with other health professionals (mins): 20 Sepsis Event Evaluation Height, Weight, BMI Height: '" Weight: lbs. oz. kg; 24.00 BMI Method: Exam Exam Patient acknowledged, consented, and participated in this virtual visit which was conducted using real time audio/video Vital Signs Date Time Temp Pulse Resp B/P (MAP) Pulse Ox O2 Delivery O2 Flow Rate FiO2 07/06/22 09:29 OxyMask 13.00 07/06/22 09:00 57 32 170/90 (116) 93 High Flow N/C 3.00 07/06/22 08:00 60 180/92 (121) 95 High Flow N/C 3.00 07/06/22 07:55 36.4 07/06/22 07:30 49 07/06/22 07:00 53 178/102 (127) 94 High Flow N/C 3.00 07/06/22 06:00 55 179/80 (113) 95 High Flow N/C 3.00 07/06/22 05:00 55 177/105 (129) 94 High Flow N/C 3.00 07/06/22 04:00 57 188/98 (128) 95 High Flow N/C 3.00 07/06/22 04:00 36.2 07/06/22 03:52 95 High Flow N/C 3.00 07/06/22 03:21 65 175/96 07/06/22 03:00 58 181/94 (123) 97 High Flow N/C 3.00 07/06/22 02:00 59 178/98 (124) 93 High Flow N/C 3.00 07/06/22 01:07 65 175/96 07/06/22 01:00 64 175/96 (122) 97 High Flow N/C 3.00 07/06/22 01:00 80 07/06/22 00:00 67 156/132 (140) 92 High Flow N/C 3.00 07/05/22 23:59 98 High Flow N/C 3.00 07/05/22 23:51 36.4 07/05/22 23:00 65 174/88 (116) 95 High Flow N/C 3.00 07/05/22 22:00 61 13 159/102 (121) 95 High Flow N/C 3.00 07/05/22 22:00 69 159/102 07/05/22 21:15 71 153/83 07/05/22 21:00 62 153/88 (109) 93 High Flow N/C 3.00 07/05/22 20:00 63 170/89 (116) 94 High Flow N/C 3.00 07/05/22 19:46 96 High Flow N/C 3.00 07/05/22 19:33 35.1 07/05/22 19:08 95 High Flow N/C 3.00 07/05/22 19:00 54 07/05/22 19:00 62 29 151/85 (107) 95 High Flow N/C 3.00 07/05/22 18:00 63 31 158/84 (108) 92 High Flow N/C 3.00 07/05/22 17:00 57 36 137/76 (96) 93 High Flow N/C 3.00 07/05/22 16:00 98 High Flow N/C 3.00 07/05/22 16:00 53 37 158/94 (115) 92 High Flow N/C 3.00 07/05/22 15:35 95 OxyMask 4.00 07/05/22 15:31 35.8 07/05/22 15:00 56 20 175/92 (119) 95 High Flow N/C 3.00 07/05/22 14:00 61 167/84 (111) 97 High Flow N/C 3.00 07/05/22 13:14 62 07/05/22 13:00 62 95 High Flow N/C 3.00 07/05/22 12:00 98 High Flow N/C 3.00 07/05/22 12:00 36.2 Nasal Cannula 3.00 07/05/22 12:00 52 16 147/92 (110) 95 High Flow N/C 3.00 07/05/22 11:00 64 16 139/90 (106) 94 High Flow N/C 5.00 I & O 07/06/22 07:00 Intake Total 950 ml Output Total 2700 ml Balance -1750 ml Height & Weight Height: '" Weight: lbs. oz. kg; 24.00 BMI Method: General Appearance: No Apparent Distress, Chronically ill HEENT: Other (endotracheal tube in place) Respiratory: Lungs Clear Cardiovascular: Regular Rate, Rhythm, No Murmur Capillary Refill: Less Than 3 Seconds Gastrointestinal: normal bowel sounds, non tender, soft, no organomegaly; No distended Extremity: No Pedal Edema Neurologic/Psychiatric: Alert, Oriented x3 Skin: Normal Color Results Lab Laboratory Tests 07/05/22 04:30 07/05/22 15:30 07/06/22 04:13 Assessment/Plan Assessment/Plan See free text. Critical Care: Critically Ill Patient JODIE RAMIREZ MD Jul 06, 2022 10:06
[2022-07-06] MEDS: RT-ALBUTEROL/IPRATROPIUM 3 ML (DUONEB) VIAL INH SCH ×3 (10:10→19:24)
--- NOTE | 2022-07-06 10:13 | Progress Note - Hospitalist ---
Subjective HPI/CC On Admission Date Seen by Provider: Jul 06, 2022 Marcos Crawford is a 62 year old male with PMH alcohol abuse, tobacco abuse, who presented after a cardiac arrest. He was [place] the golf [place] and was about to play in a tournament. He had reportedly been feeling bad for several days. His teeth are "all rotten" and he was scheduled to have his teeth pulled next Sunday. He obtained and was taking an antibiotic from a farm store. His is unsure what the antibiotics was. She does not think they recommended he take antibiotics. He had been having body aches. She reports that he told her he felt like he was going to . He had been reporting chest pain. He did not want to go [place] [employer] but he had already paid for it. He is an every day drinker. His daughter says he drinks "a lot". He reportedly gets shaky when he hasn't had a drink. She does not remember him going a day without a drink. He has never been admitted to the hospital with alcohol withdrawal. He has no known medical conditions. He does not take any medications daily. EMS found him in ventricular fibrillation. ROSC was quickly obtained. He was thought to have ST elevations on the EKG and was taken directly to the labels molder. Dr. Novak performed left heart cath which showed non-obstructive coronary artery disease and no other cause for his arrest. He was admitted to the ICU. Dr. Novak contacted the hospitalist service to assume care of the patient. Labs and imaging were ordered. TeleICU was consulted. Subjective/Events-last exam Pt alert today but not talking much. Shook his head yes and no appropriately. No family at bedside. Objective Exam Vital Signs Vital Signs Date Time Temp Pulse Resp B/P (MAP) Pulse Ox O2 Delivery O2 Flow Rate FiO2 07/06/22 09:29 OxyMask 13.00 07/06/22 09:00 57 32 170/90 (116) 93 07/06/22 07:55 36.4 07/03/22 10:59 30 Capillary Refill : Less Than 3 Seconds General Appearance: No Apparent Distress Respiratory: Lungs Clear Cardiovascular: Regular Rate, Rhythm, No Murmur Gastrointestinal: Normal Bowel Sounds, Soft Neurologic/Psychiatric: Alert (didn't speak) Results/Procedures Lab Laboratory Tests 07/05/22 15:30 07/06/22 04:13 Patient resulted labs reviewed. Imaging: Reviewed Imaging Films, Reviewed Imaging Report Assessment/Plan Assessment and Plan Assess & Plan/Chief Complaint Cardiac arrest Ventricular fibrillation Acute HFrEF Acute respiratory failure with hypoxia and hypercapnia Endotracheally intubated Hypokalemia Hypomagnesemia Alcohol dependence Elevated LFTs Hepatic steatosis Left lower lobe collapse Mucus plugging Misuse of medication Tobacco abuse Cardiology following, left heart cath without obstructive coronary artery disease CXR improving, continue Lasix MAT protocol TeleICU following, managing ventilator, appreciate assistance Continue Zosyn Sputum with haemophilus Unknown med was "Fishbiotic Amoxicillin" - Poison control with no r ecommendations CIWA protocol, off precedex as of 900 If does well off it will transfer out of later today or tomorrow PT/OT/Speech eval IRF eval Amio and metoprolol held due to bradycardia- management per cardiology Will need AICD prior to DC likely DVT prophylaxis: Lovenox Critical Care Ventilator Management SUBHASH MCFADDEN MD Jul 06, 2022 10:13
[2022-07-06] MEDS: PANTOPRAZOLE 40 MG (PROTONIX) VIAL IV SCH (10:26)
[2022-07-06] MEDS: FOLIC ACID 1 MG TAB PO SCH (10:26)
[2022-07-06] MEDS: NICOTINE 21 MG (NICODERM) PATCH TD SCH (10:37)
--- NOTE | 2022-07-06 13:05 | Speech Therapy Daily Note ---
Speech Daily Progress Note Subjective Date Seen by Provider: Jul 06, 2022 Time Seen by Provider: 11:45 The patient was lying in bed, sleeping, upon entrance to his room by the clinician. The patient has two family members present at bedside. With maximum verbal prompting, the patient woke and was agreeable to participation in the dysphagia therapy session. The patient was seated upright in bed for safe swallowing position. Objective The patient was provided thin liquid via teaspoon and straw, mildly thick liquid via teaspoon, straw and side of cup, moderately thick liquid via teaspoon, straw, and side of cup, puree, and saltine cracker. All P.O. intake was provided by the clinician. The patient demonstrated a rigorous cough with 2/5 teaspoons of thin liquid and two of two straw drinks. The patient demonstrated a rigorous cough with two of three teaspoons of mildly thick liquids and two of two straw drinks of mildly thick liquids. The patient did not display s/s of suspected aspiration with puree, cup edge drinks of moderately thick liquid, or the s altine cracker. Prolonged mastication/mashing was exhibited with the saltine cracker. To note, the patient displayed difficulty and reduced coordination of bolus retrieval via straw. Recommendations: - MM5 with moderately thick liquids, as tolerated. - Fully upright and alert for P.O. intake. - Small, single bites and sips, only. - No straws. - Crush medication and place in puree for administration. - Full feeding supervision and assistance. - Monitor for s/s of suspected aspiration with P.O. intake. If demonstrated, please place the patient N.P.O. and contact speech pathology. The results and recommendations were written on the in-room white board, discussed with the patient and family, and provided to the RN at completion of the session. Assessment Assessment Current Status: Fair Progress Treatment Plan Continue Plan of Care Speech Short Term Goals Short Term Goals Short Term Goals 1. The patient, staff, and family members will demonstrate safe swallowing precautions with 80% accuracy, independently. Speech Detention Goals Cement Mason Helper Goals 1. The patient will tolerate the least restrictive diet consistency without s/s of suspected aspiration. Time Frame: Five Days. Speech-Plan Treatment Plan Speech Therapy Treatment Plan: Continue Plan of Care Treatment Duration: Jul 12, 2022 Frequency: 4 times per week Estimated Hrs Per Day: .25 hour per day Rehab Potential: Guarded Safety Risks/Education Teaching Recipient: Patient, Family Teaching Methods: Discussion Response to Teaching: Reinforcement Needed Education Topics Provided: Results, Recommendations, Plan of Care, Safe Swallowing Strategies Time Speech Therapy Time In: 11:45 Speech Therapy Time Out: 12:15 DATE: Jul 06, 2022 Total Billed Time: 30 Billed Treatment Time 1, JEFFREY JOSH REHMAN Jul 06, 2022 13:05
[2022-07-06] MEDS: morphine INJ 4 MG/ML 1 ML (VIAL/SYRINGE) IVP PRN ×3 (17:01→20:49)
--- NOTE | 2022-07-06 17:45 | Progress Note - Cardiology ---
Cardiology SOAP Progress Note Subjective: No cp or palp or syncope No shortness of breath at rest No dizziness No n/v/d No focal weakness Some gen weakness Objective: I&O/Vital Signs 07/06/22 07/06/22 07/06/22 07/06/22 06:00 07:00 07:30 07:55 Temp 36.4 Pulse 55 53 49 B/P (MAP) 179/80 (113) 178/102 (127) Pulse Ox 95 94 O2 Delivery High Flow N/C High Flow N/C O2 Flow Rate 3.00 3.00 07/06/22 07/06/22 07/06/22 07/06/22 08:00 09:00 09:29 10:00 Pulse 60 57 74 Resp 32 25 B/P (MAP) 180/92 (121) 170/90 (116) 101/65 (77) Pulse Ox 95 93 91 O2 Delivery High Flow N/C High Flow N/C OxyMask OxyMask O2 Flow Rate 3.00 3.00 13.00 13.00 07/06/22 07/06/22 07/06/22 07/06/22 10:10 10:21 11:00 11:32 Temp 36.3 Pulse 69 Resp 26 B/P (MAP) 128/108 (115) Pulse Ox 96 90 O2 Delivery High Flow N/C High Flow N/C High Flow N/C O2 Flow Rate 10.00 5.00 5.00 07/06/22 07/06/22 07/06/22 07/06/22 12:00 13:00 13:23 14:00 Pulse 67 60 61 67 Resp 43 30 60 B/P (MAP) 148/80 (102) 130/78 (95) 103/55 (71) Pulse Ox 95 94 96 O2 Delivery High Flow N/C High Flow N/C High Flow N/C O2 Flow Rate 5.00 5.00 5.00 07/06/22 07/06/22 14:10 15:00 Pulse 71 Resp 19 B/P (MAP) 122/76 (91) Pulse Ox 96 94 O2 Delivery High Flow N/C High Flow N/C O2 Flow Rate 5.00 5.00 07/06/22 00:00 Intake Total 500 ml Output Total 500 ml Balance 0 ml Constitutional: other (Awake, alert, oriented to self and place) Respiratory: No accessory muscle use, No respiratory distress, No wheezing; other (coarse breath sounds) Cardiovascular: regular rate-rhythm, S1 and S2 Gastrointestional: soft Extremities: No pedal edema; no lower extremity edema bilateral Neurologic/Psychiatric: other (unable to cooperate with exam d/t sedation) Skin: normal color; No rash on exposed areas; other (abrasion to face) Results/Procedures: Labs Laboratory Tests 07/05/22 23:45: Glucometer 87 07/06/22 04:13: White Blood Count 9.3, Red Blood Count 3.68L, Hemoglobin 13.3, Hematocrit 37L, Mean Corpuscular Volume 100H, Mean Corpuscular Hemoglobin 36H, Mean Corpuscular Hemoglobin Concent 36, Red Cell Distribution Width 12.5, Platelet Count 243, Mean Platelet Volume 11.0, Immature Granulocyte % (Auto) 1, Neutrophils (%) (Auto) 67, Lymphocytes (%) (Auto) 13, Monocytes (%) (Auto) 16H, Eosinophils (%) (Auto) 2, Basophils (%) (Auto) 1, Neutrophils # (Auto) 6.2, Lymphocytes # (Auto) 1.2, Monocytes # (Auto) 1.5H, Eosinophils # (Auto) 0.2, Basophils # (Auto) 0.1, Immature Granulocyte # (Auto) 0.1, Sodium Level 137, Potassium Level 3.3L, Chloride Level 101, Carbon Dioxide Level 25, Anion Gap 11, Blood Urea Nitrogen 18, Creatinine 0.62, Estimat Glomerular Filtration Rate 109, BUN/Creatinine Ratio 29, Glucose Level 87, Calcium Level 9.5, Corrected Calcium 10.1, Phosphorus Level 3.1, Magnesium Level 2.1, Total Bilirubin 0.8, Aspartate Amino Transf (AST/SGOT) 50H, Alanine Aminotransferase (ALT/SGPT) 46, Alkaline Phosphatase 121, Total Protein 6.3L, Albumin 3.2 07/06/22 11:34: Glucometer 75 Microbiology 07/03/22 Blood Culture - Preliminary, Resulted No growth 07/03/22 Urine Culture - Final, Complete NO GROWTH 07/01/22 Gram Stain - Final, Complete 07/01/22 Sputum Culture - Final, Complete Haemophilus influenza YEAST Laboratory Tests 07/05/22 04:30 07/05/22 15:30 07/06/22 04:13 A/P: Assessment: Witnessed arrest. Ventricular fibrillation. Single shock. ROSC achieved. EKG showed possible ST elevation in leads V2 and V3 therefore patient was brought directly to the Broaching Machine Set Up Operator on 07/02/22. - Coronary angiography on 07-02-[address] Novak did not show any occlusive coronary artery disease. Preserved LV function (however, subsequent echo showed cardiomyopathy). Aortogram did not show any aortic dissection. - ICD before discharge Episodes of bradycardia yesterday - Amiodarone gtt stopped - no further episodes Intubated following cardiac arrest - currently extubated Echocardiogram shows EF of 35 to 40%. Global hypokinesis. No LV thrombus noted. No significant valvular heart disease. No pericardial effusion. Acute hypercapnic respiratory failure - CT chest shows left lower lobe collapse/atelectasis. No PE. Positive D- dimer. According to patient is a heavy smoker and alcoholic. Significant electrolyte abnormalities with hypokalemia and hypomagnesemia CT head did not show any significant active intracranial abnormality. Plan: Witness v-fib cardiac arrest (no evidence of CAD on cardiac cath) - Would need AICD prior to discharge - more alert today Episodes of bradycardia yesterday (had been receiving freq sedation d/t ETOH withdrawal as well) - Amiodarone gtt stopped and BB has been held - Improved Dilated cardiomyopathy - start HF treatment with HF meds - d/t sedation (tx for ETOH withdrawal) start IV BB, Lasix and Enalapril - change to oral medications when able to take Uncontrolled HTN - increase Enalapril today Reduce diuretics CXR today Lovenox for DVT prophylaxis Monitor lab closely Replace electrolytes as indicated Advise ETOH cessation and tobacco cessation THA MURILLO MD FACP [facility] Jul 06, 2022 17:45
[2022-07-06] MEDS: ENALAPRILAT 2.5 MG/2 ML (VASOTEC) VIAL IV SCH (20:47)
[2022-07-06] MEDS: ENOXAPARIN 40 MG/0.4 ML (LOVENOX) SYR SC SCH (20:49)
[2022-07-06] MEDS: MELATONIN 3 MG TABLET PO SCH (20:49)
[2022-07-07] MEDS: inSUlin ASPART (NovoLOG) 1 UNIT/0.01 ML (CHARGE PER UNIT) SC SCH ×4 (01:18→18:20)
[2022-07-07] MEDS: meTOprolol 5 MG/5 ML (LOPRESSOR) VIAL IV SCH ×2 (01:19→06:26)
[2022-07-07] MEDS: hydrALAZINE (APESOLINE) 20 MG/ML VIAL IV PRN (02:25)
[2022-07-07] MEDS: PIPERACILLIN SODIUM/TAZOBACTAM 4.5 GM in NS (IVPB) 100 ML IV SCH (04:39)
[2022-07-07] MEDS: LORazepam INJ 2 MG/ML (ATIVAN) VIAL IV PRN (04:45)
[2022-07-07 05:37] LABS: BASOPHILS # (AUTO) 0.1 10^3/uL (0.0-0.1); BASOPHILS % (AUTO) 1 % (0-10); EOSINOPHILS # (AUTO) 0.1 10^3/uL (0.0-0.3); EOSINOPHILS % (AUTO) 1 % (0-10); HEMATOCRIT 36 % (40-54); HEMOGLOBIN 12.3 g/dL (13.3-17.7); LYMPHOCYTES # (AUTO) 1.1 10^3/uL (1.0-4.0); LYMPHOCYTES % (AUTO) 11 % (12-44); MEAN CORPUSCULAR HEMOGLOBIN 35 pg (25-34); MEAN CORPUSCULAR HGB CONC 35 g/dL (32-36); MEAN CORPUSCULAR VOLUME 102 fL (80-99); MEAN PLATELET VOLUME 10.6 fL (9.0-12.2); MONOCYTES # (AUTO) 1.6 10^3/uL (0.0-1.0); MONOCYTES % (AUTO) 17 % (0-12); NEUTROPHILS # (AUTO) 6.6 10^3/uL (1.8-7.8); NEUTROPHILS % (AUTO) 69 % (42-75); PLATELET COUNT 277 10^3/uL (130-400); WHITE BLOOD COUNT 9.5 10^3/uL (4.3-11.0)
[2022-07-07 05:58] LABS: ALBUMIN 3.4 GM/DL (3.2-4.5); POTASSIUM 3.3 MMOL/L (3.6-5.0)
[2022-07-07 05:59] LABS: CALCIUM 9.8 MG/DL (8.5-10.1)
[2022-07-07 06:00] LABS: TOTAL PROTEIN 6.5 GM/DL (6.4-8.2)
[2022-07-07 06:02] LABS: BILIRUBIN,TOTAL 0.7 MG/DL (0.1-1.0)
[2022-07-07 06:04] LABS: CREATININE SERUM 0.65 MG/DL (0.60-1.30)
[2022-07-07 06:05] LABS: PHOSPHORUS 2.5 MG/DL (2.3-4.7)
[2022-07-07 06:07] LABS: MAGNESIUM 1.8 MG/DL (1.6-2.4)
[2022-07-07] MEDS: POTASSIUM CL 10MEQ/50ML IVPB 50 ML IV SCH ×6 (06:17→14:45)
[2022-07-07] MEDS: KCL 20 MEQ TAB (K-DUR) PO SCH (06:17)
[2022-07-07] MEDS: MAGNESIUM 1 GM/100 ML IVPB 100 ML IV SCH ×3 (06:17→06:46)
[2022-07-07] MEDS: RT-ALBUTEROL/IPRATROPIUM 3 ML (DUONEB) VIAL INH SCH ×2 (07:30→21:02)
[2022-07-07] MEDS ORDERED: NICOTINE 21 MG (NICODERM) PATCH TD SCH (09:00)
[2022-07-07] MEDS ORDERED: FUROSEMIDE 40 MG/4 ML INJ (LASIX) IVP SCH (09:00)
[2022-07-07] MEDS: PANTOPRAZOLE 40 MG (PROTONIX) VIAL IV SCH (09:30)
[2022-07-07] MEDS: NICOTINE 21 MG (NICODERM) PATCH TD SCH (09:30)
[2022-07-07] MEDS: FOLIC ACID 1 MG TAB PO SCH (09:30)
--- NOTE | 2022-07-07 10:08 | Tele-ICU Progress Note ---
Subjective Date Seen by a Provider: Jul 07, 2022 Subjective/Events-last exam This virtual visit was conducted using real time audio/video. Thank you for asking us to see this patient for respiratory insufficiency due to vfib arrest, STEMI and aspiration pna. Recent events: Extubated 07/03 PE: Appears comfortable.VSS. O2 sat 93% on 3 LPM. HEENT: No obvious masses, adenopathy or JVD. Chest: coarse on auscultation. CV: RRR S1 S2 No murmur or added sounds. Abd: Non-tender. Bowel sounds Y. : Unremarkable. Bach Y. CONFERENCE SERVICE COORDINATOR/psychiatric: Grossly intact. No obvious focal findings. Extremities: No edema. Capillary refill < 3 seconds. Skin: unremarkable. Results: Decreased K 3.3. CXR: Hyperinflated, much improved B infiltrates. Available chart/ vitals / labs / images reviewed. Video assessment done using teleICU camera, rest of exam as per RN. A/P: Respiratory insufficiency: Continue present management with O2, duonebs, nicotine patch. Critical Care: critically ill patient. Off Precedex. Cont. CIWA, amiod., mansoor., Metop., SSI, lasix. Consider tele transfer.Replace K. Discussed with RN CJ. Asked RN to reach out to eICU if any questions or concerns later. Time spent with patient/coordination of care with other health professionals (mins): 15 Sepsis Event Evaluation Height, Weight, BMI Height: '" Weight: lbs. oz. kg; 24.00 BMI Method: Exam Exam Patient acknowledged, consented, and participated in this virtual visit which wa s conducted using real time audio/video Vital Signs Date Time Temp Pulse Resp B/P (MAP) Pulse Ox O2 Delivery O2 Flow Rate FiO2 07/07/22 09:00 78 139/94 (109) 95 High Flow N/C 4.00 07/07/22 08:00 71 156/76 (102) 91 High Flow N/C 4.00 07/07/22 08:00 36.2 07/07/22 07:32 95 High Flow N/C 4.00 07/07/22 07:00 69 141/83 (102) 96 High Flow N/C 4.00 07/07/22 07:00 67 07/07/22 06:00 90 25 129/58 (81) 90 High Flow N/C 4.00 07/07/22 05:00 71 28 166/82 (110) 92 High Flow N/C 4.00 07/07/22 04:00 93 High Flow N/C 3.00 07/07/22 04:00 85 37 163/90 (114) 96 High Flow N/C 4.00 07/07/22 03:00 66 23 167/77 (107) 96 High Flow N/C 4.00 07/07/22 02:00 63 24 177/96 (123) 94 High Flow N/C 4.00 07/07/22 01:00 86 07/07/22 01:00 84 26 152/98 (116) 93 High Flow N/C 4.00 07/07/22 00:00 93 High Flow N/C 3.00 07/07/22 00:00 73 22 146/85 (105) 94 High Flow N/C 4.00 07/06/22 23:00 67 23 136/75 (95) 94 High Flow N/C 4.00 07/06/22 22:00 73 21 130/99 (109) 94 High Flow N/C 4.00 07/06/22 21:00 72 19 127/68 (87) 93 High Flow N/C 4.00 07/06/22 20:00 75 34 127/74 (91) 96 High Flow N/C 4.00 07/06/22 20:00 92 High Flow N/C 3.00 07/06/22 19:24 100 High Flow N/C 4.00 07/06/22 19:00 75 18 134/78 (96) 97 High Flow N/C 4.00 07/06/22 19:00 80 07/06/22 18:18 94 High Flow N/C 4.00 07/06/22 18:00 71 44 125/74 (91) 90 High Flow N/C 5.00 07/06/22 17:00 72 51 110/55 (73) 95 High Flow N/C 5.00 07/06/22 16:00 75 36 135/75 (95) 96 High Flow N/C 5.00 07/06/22 16:00 95 High Flow N/C 3.00 07/06/22 15:00 71 19 122/76 (91) 94 High Flow N/C 5.00 07/06/22 14:10 96 High Flow N/C 5.00 07/06/22 14:00 67 60 103/55 (71) 96 High Flow N/C 5.00 07/06/22 13:23 61 07/06/22 13:00 60 30 130/78 (95) 94 High Flow N/C 5.00 07/06/22 12:00 67 43 148/80 (102) 95 High Flow N/C 5.00 07/06/22 12:00 95 High Flow N/C 5.00 07/06/22 11:32 36.3 07/06/22 11:00 69 26 128/108 (115) 90 High Flow N/C 5.00 07/06/22 10:21 High Flow N/C 5.00 07/06/22 10:10 96 High Flow N/C 10.00 I & O 07/07/22 06:59 Intake Total 350 ml Output Total 1325 ml Balance -975 ml Height & Weight Height: '" Weight: lbs. oz. kg; 24.00 BMI Method: General Appearance: No Apparent Distress HEENT: Other (endotracheal tube in place) Respiratory: Lungs Clear Cardiovascular: Regular Rate, Rhythm, No Murmur Capillary Refill: Less Than 3 Seconds Gastrointestinal: normal bowel sounds, non tender, soft, no organomegaly; No di stended Extremity: No Pedal Edema Neurologic/Psychiatric: Alert (didn't speak) Skin: Normal Color Results Lab Laboratory Tests 07/05/22 15:30 07/06/22 04:13 07/07/22 05:23 Assessment/Plan Assessment/Plan See free text. Critical Care: Critically Ill Patient JODIE RAMIREZ MD Jul 07, 2022 10:08
[2022-07-07] MEDS: ENALAPRILAT 2.5 MG/2 ML (VASOTEC) VIAL IV SCH (10:15)
--- NOTE | 2022-07-07 10:47 | Progress Note - Hospitalist ---
Subjective HPI/CC On Admission Date Seen by Provider: Jul 07, 2022 Marcos Crawford is a 62 year old male with PMH alcohol abuse, tobacco abuse, who presented after a cardiac arrest. [place] and [place] about to play in a tournament. He had reportedly been feeling bad for several days. His teeth are "all rotten" and he was scheduled to have his teeth pulled next Sunday. He obtained and was taking an antibiotic from a farm store. His is unsure what the antibiotics was. She does not think they recommended he take antibiotics. He had been having body aches. She reports that he told her he felt like he was going to . He had been reporting chest pain. He did not want to go to the tournament but he had already paid for it. He is an every day drinker. His daughter says he drinks "a lot". He reportedly gets shaky when he hasn't had a drink. She does not remember him going a day without a drink. He has never been admitted to the hospital with alcohol withdrawal. He has no known medical conditions. He does not take any medications daily. EMS found him in ventricular fibrillation. ROSC was quickly obtained. He was thought to have ST elevations on the EKG and was taken directly to the lab analyst. Dr. Novak performed left heart cath which showed non-obstructive coronary artery disease and no other cause for his arrest. He was admitted to the ICU. Dr. Novak contacted the hospitalist service to assume care of the patient. Labs and imaging were ordered. TeleICU was consulted. Subjective/Events-last exam Pt reports doing well. No complaints. Much more alert today. Objective Exam Vital Signs Vital Signs Date Time Temp Pulse Resp B/P (MAP) Pulse Ox O2 Delivery O2 Flow Rate FiO2 07/07/22 10:00 53 134/66 (88) 93 High Flow N/C 4.00 07/07/22 08:00 36.2 07/07/22 06:00 25 07/03/22 10:59 30 Capillary Refill : Less Than 3 Seconds General Appearance: No Apparent Distress Respiratory: Lungs Clear, No Respiratory Distress Cardiovascular: Regular Rate, Rhythm, No Murmur Neurologic/Psychiatric: Alert, Oriented x3 Results/Procedures Lab Laboratory Tests 07/07/22 05:23 Patient resulted labs reviewed. Imaging: Reviewed Imaging Films, Reviewed Imaging Report Assessment/Plan Assessment and Plan Assess & Plan/Chief Complaint Cardiac arrest Ventricular fibrillation Acute HFrEF Acute respiratory failure with hypoxia and hypercapnia Endotracheally intubated Hypokalemia Hypomagnesemia Alcohol dependence Elevated LFTs Hepatic steatosis Left lower lobe collapse Mucus plugging Misuse of medication Tobacco abuse Cardiology following, left heart cath without obstructive coronary artery disease CXR improving, continue Lasix- wean oxygen as able MAT protocol TeleICU following, managing ventilator, appreciate assistance DC Zosyn, completed course Sputum with haemophilus Unknown med was "Fishbiotic Amoxicillin" - Poison control with no recommendations CIWA protocol, off precedex PT/OT/Speech IRF eval Will need AICD prior to DC likely Transfer to [facility] DVT prophylaxis: Lovenox Critical Care Critically Ill Patient SUBHASH MCFADDEN MD Jul 07, 2022 10:47
--- NOTE | 2022-07-07 11:10 | Progress Note - Cardiology ---
Cardiology SOAP Progress Note Subjective: Lying in bed Daughter at the bedside. No c/o CP or palpitations Feels SOB is better today Gen weakness Objective: I&O/Vital Signs 07/10/22 07/10/22 07/10/22 07/10/22 00:05 01:00 02:31 03:35 Temp 36.0 36.0 Pulse 63 66 67 Resp 18 18 B/P (MAP) 164/87 (112) 174/77 (109) Pulse Ox 97 95 96 O2 Delivery Nasal Cannula Nasal Cannula Nasal Cannula O2 Flow Rate 2.00 2.00 2.00 07/10/22 07/10/22 07/10/22 07/10/22 05:01 07:00 07:56 08:00 Temp 36.0 Pulse 90 71 70 Resp 18 B/P (MAP) 174/80 (111) Pulse Ox 93 O2 Delivery Nasal Cannula Nasal Cannula O2 Flow Rate 1.50 1.50 07/10/22 09:24 Pulse Ox 97 O2 Delivery Nasal Cannula O2 Flow Rate 1.50 07/10/22 00:00 Intake Total 665 ml Output Total 400 ml Balance 265 ml Constitutional: AAO x 3, other (thin) Respiratory: No accessory muscle use, No respiratory distress, No wheezing; other (prolonged exp phase) Cardiovascular: regular rate-rhythm, S1 and S2 Gastrointestional: soft Extremities: No pedal edema; no lower extremity edema bilateral Neurologic/Psychiatric: other (moves all extremities) Skin: normal color; No rash on exposed areas; other (abrasion to face) Results/Procedures: Labs Laboratory Tests 07/09/22 11:28: Glucometer 101 07/10/22 00:03: Glucometer 80 07/10/22 04:54: White Blood Count 11.1H, Red Blood Count 3.66L, Hemoglobin 13.1L, Hematocrit 37L , Mean Corpuscular Volume 101H, Mean Corpuscular Hemoglobin 36H, Mean Corpuscular Hemoglobin Concent 35, Red Cell Distribution Width 12.4, Platelet Count 431H, Mean Platelet Volume 11.0, Immature Granulocyte % (Auto) 1, Neutrophils (%) (Auto) 72, Lymphocytes (%) (Auto) 13, Monocytes (%) (Auto) 12, Eosinophils (%) (Auto) 1, Basophils (%) (Auto) 1, Neutrophils # (Auto) 8.0H, Lymphocytes # (Auto) 1.5, Monocytes # (Auto) 1.3H, Eosinophils # (Auto) 0.2, Basophils # (Auto) 0.1, Immature Granulocyte # (Auto) 0.1, Sodium Level 132L, Potassium Level 3.2L, Chloride Level 99, Carbon Dioxide Level 23, Anion Gap 10, Blood Urea Nitrogen 16, Creatinine 0.69, Estimat Glomerular Filtration Rate 105, BUN/Creatinine Ratio 23, Glucose Level 82, Calcium Level 9.5, Corrected Calcium 9.9, Phosphorus Level 2.5, Magnesium Level 1.7, Total Bilirubin 0.6, Aspartate Amino Transf (AST/SGOT) 30, Alanine Aminotransferase (ALT/SGPT) 35, Alkaline Phosphatase 108, Total Protein 6.7, Albumin 3.5 Microbiology 07/03/22 Blood Culture - Preliminary, Resulted No growth 07/03/22 Urine Culture - Final, Complete NO GROWTH 07/01/22 Gram Stain - Final, Complete 07/01/22 Sputum Culture - Final, Complete Haemophilus influenza YEAST A/P: Assessment: Witnessed arrest. Ventricular fibrillation. Single shock. ROSC achieved. EKG showed possible ST elevation in leads V2 and V3 therefore patient was brought directly to the [facility] on 07/02/22. - Coronary angiography on 07-02-[address] Novak did not show any occlusive coronary artery disease. Preserved LV function (however, subsequent echo showed cardiomyopathy). Aortogram did not show any aortic dissection. - ICD before discharge - have discussed with him and his daughter on 07-07-22 (agreeable) Episodes of bradycardia yesterday - Amiodarone gtt stopped - no further episodes Intubated following cardiac arrest - currently extubated Echocardiogram shows EF of 35 to 40%. Global hypokinesis. No LV thrombus noted. No significant valvular heart disease. No pericardial effusion. Acute hypercapnic respiratory failure - CT chest shows left lower lobe collapse/atelectasis. No PE. Positive D- dimer. According to patient is a heavy smoker and alcoholic. Significant electrolyte abnormalities with hypokalemia and hypomagnesemia CT head did not show any significant active intracranial abnormality. Plan: Witness v-fib cardiac arrest (no evidence of CAD on cardiac cath) - Would need AICD prior to discharge - discussed with pt and daughter today - they are agreeable to implant Episodes of bradycardia 07-05/6-1-23 (had been receiving freq sedation d/t ETOH withdrawal as well) - Amiodarone gtt stopped - resolved Dilated cardiomyopathy - start HF treatment with HF meds - able to take oral medications - start Jardiance, Entresto, Aldactone Lovenox for DVT prophylaxis Monitor lab closely Replace electrolytes as indicated Advise ETOH cessation and tobacco cessation MAITE REID Jul 07, 2022 11:10
[2022-07-07] MEDS ORDERED: EMPAGLIFLOZIN 10 MG TABLET (JARDIANCE) PO NR (11:24)
[2022-07-07] MEDS ORDERED: SPIRONOLACTONE 25 MG (ALDACTONE) TAB PO NR (11:24)
[2022-07-07] MEDS ORDERED: SACUBITRIL/VALSARTAN 24/26 MG (ENTRESTO) TABLET PO NR (11:24)
[2022-07-07] MEDS ORDERED: AMIODARONE 200 MG (CORDARONE) TAB PO NR (11:25)
--- NOTE | 2022-07-07 12:05 | Physical Therapy Daily Note ---
PT Daily Note-Current Subjective Patient much more alert on this date. Agrees to PT. Pain Section J - Health Conditions 1. Rarely or not at all 2. Occasionally 3. Frequently 4. Almost constantly 8. Unable to answer Pain Effect on Sleep: 2 Pain Interference with Therapy: 2 Pain Interference w/Day-to-Day: 2 Mental Status Patient Orientation: Normal For Age Attachments: Oxygen, Bach Catheter, IV Transfers SCALE: Activities may be completed with or without assistive devices. 3-Covkliufcy-llzpuqh completes the activity by him/herself with no assistance f rom a helper. 5-Set-up or Clean-up Assistance-helper sets up or cleans up; patient completes activity. Otis assists only prior to or following the activity. 4-Supervision or Touching Assistance-helper provides verbal cues and/or touching/steadying and/or contact guard assistance as patient completes activity. Assistance may be provided throughout the activity or intermittently. 3-Partial/Moderate Assistance-helper does LESS THAN HALF the effort. Otis lifts, holds or supports trunk or limbs, but provides less than half the effort. 2-Substantial/Maximal Assistance-helper does MORE THAN HALF the effort. Otis lifts or holds trunk or limbs and provides more than half the effort. 3-Luhaqanob-qrrsfr does ALL the effort. Patient does none of the effort to complete the activity. Or, the assistance of 2 or more helpers is required for the patient to complete the activity. If activity was not attempted, code reason: 7-Patient Refused. 9-Not Applicable-not attempted and the patient did not perform the activity before the current illness, exacerbation or injury. 10-Not Attempted due to Environmental Limitations-(lack of equipment, weather restraints, etc.). 88-Not Attempted due to Medical Conditions or Safety Concerns. Lying to Sitting/Side of Bed(Q: 4 Sit to Stand (QC): 3 Chair/Ofc-kh-Kgulw Xfer(QC): 3 retropulsive with FWW with sit to stand and with ambulate/transfer Weight Bearing Right Lower Extremity: Right Full Weight Bearing Left Lower Extremity: Left Full Weight Bearing Gait Training Distance: 10' Walk 10 feet (QC): 3 (retropulsive) Gait Assistive Device: FWW retropulsive/shuffle gait sequence Assessment Patient performed standing in FWW for several minutes with VC's for posture and balance activity with OT addressing reaching activity due to right UE immobility. PT to increase activity as tolerated by patient. PT Speech Assistant Goals Intermediate Goals PT Intermediate Goals Time Frame: Aug 04, 2022 Roll Left & Right (QC): 3 Sit to Lying (QC): 3 Lying-Sitting on Side/Bed(QC): 3 Sit to Stand (QC): 3 Chair/Ylp-yo-Qomlz Xfer(QC): 3 Toilet Transfer (QC): 3 Does the Patient Walk: Yes Walk 10 feet (QC): 3 Walk 50ft with 2 Turns (QC): 3 Walk 150 ft (QC): 3 1 Step (curb) (QC): 2 4 Steps (QC): 2 PT Plan Treatment/Plan Treatment Plan: Continue Plan of Care Treatment Plan: Bed Mobility, Education, Functional Activity Mirtha, Functional Strength, Group Therapy, Gait, Safety, Therapeutic Exercise, Transfers Treatment Duration: Aug 04, 2022 Frequency: 6 times per week Estimated Hrs Per Day: .25 hour per day Patient and/or Family Agrees t: Yes Time Time In: 1130 Time Out: 1140 DATE: Jul 07, 2022 Total Billed Treatment Time: 10 Total Billed Treatment 1 visit FA 10 min TOM JEROME PT Jul 07, 2022 12:05
--- NOTE | 2022-07-07 12:10 | Speech Therapy Daily Note ---
Speech Daily Progress Note Subjective Date Seen by Provider: Jul 07, 2022 Time Seen by Provider: 11:55 The patient was seated upright in his recliner, awake and alert, recently finishing physical and occupational therapy. The patient has two family members present at bedside and greeted the clinician appropriately upon entrance. The patient was agreeable to participation in the skilled treatment session. Objective The patient was provided thin liquid via teaspoon and straw drink and mildly thick liquids via teaspoon and straw drink. The patient was offered applesauce and saltine crackers by the clinician however politely declined. The patient displayed a delayed, rigorous cough with straw drinks of thin liquid. No overt s/s of suspected aspiration were displayed with trials of mildly thick liquids. Recommendations: - MM5 consistency diet with mildly thick (nectar) liquids, as tolerated. - Fully upright and alert for P.O. intake. - Small, single bites and sips. - Feeding assistance and meal set-up, as necessary. - Monitor for s/s of suspected aspiration with P.O. intake. If demonstrated, please contact speech pathology. The clinician discussed the diet consistency recommendations and safe swallowing precautions with the patient and the present family members. The information was provided to the patient's RN at the close of the treatment session. Assessment Assessment Current Status: Good Progress Treatment Plan Continue Plan of Care Speech Short Term Goals Short Term Goals Short Term Goals 1. The patient, staff, and family members will demonstrate safe swallowing precautions with 80% accuracy, independently. Speech Shelter Goals Shelter Goals 1. The patient will tolerate the least restrictive diet consistency without s/s of suspected aspiration. Time Frame: Five Days. Speech-Plan Treatment Plan Speech Therapy Treatment Plan: Continue Plan of Care Treatment Duration: Jul 12, 2022 Frequency: 4 times per week Estimated Hrs Per Day: .25 hour per day Rehab Potential: Guarded Pt/Family Agrees to Plan: Yes Safety Risks/Education Teaching Recipient: Patient, Family Teaching Methods: Discussion Response to Teaching: Verbalize Understanding Education Topics Provided: Results, Recommendations, Plan of Care, Safe Swallowing Precautions Time Speech Therapy Time In: 11:55 Speech Therapy Time Out: 12:10 DATE: Jul 07, 2022 Total Billed Time: 15 Billed Treatment Time JEFFREY Sánchez ELIZAJEFFERY NANCE Jul 07, 2022 12:10
--- NOTE | 2022-07-07 14:40 | Tele-ICU Progress Note ---
Subjective Date Seen by a Provider: Jul 07, 2022 Time Seen by a Provider: 14:38 Subjective/Events-last exam called by RN for hypotension, and dropping UO, has been on IV Lasix, will give saline bolus Sepsis Event Evaluation Height, Weight, BMI Height: '" Weight: lbs. oz. kg; 24.00 BMI Method: Exam Exam Patient acknowledged, consented, and participated in this virtual visit which was conducted using real time audio/video Vital Signs Date Time Temp Pulse Resp B/P (MAP) Pulse Ox O2 Delivery O2 Flow Rate FiO2 07/07/22 13:00 84 07/07/22 12:00 36.0 82 18 94/63 (73) 93 Nasal Cannula 3.00 07/07/22 10:00 53 134/66 (88) 93 High Flow N/C 4.00 07/07/22 09:00 78 139/94 (109) 95 High Flow N/C 4.00 07/07/22 08:00 71 156/76 (102) 91 High Flow N/C 4.00 07/07/22 08:00 36.2 07/07/22 07:32 95 High Flow N/C 4.00 07/07/22 07:00 69 141/83 (102) 96 High Flow N/C 4.00 07/07/22 07:00 67 07/07/22 06:00 90 25 129/58 (81) 90 High Flow N/C 4.00 07/07/22 05:00 71 28 166/82 (110) 92 High Flow N/C 4.00 07/07/22 04:00 93 High Flow N/C 3.00 07/07/22 04:00 85 37 163/90 (114) 96 High Flow N/C 4.00 07/07/22 03:00 66 23 167/77 (107) 96 High Flow N/C 4.00 07/07/22 02:00 63 24 177/96 (123) 94 High Flow N/C 4.00 07/07/22 01:00 86 07/07/22 01:00 84 26 152/98 (116) 93 High Flow N/C 4.00 07/07/22 00:00 93 High Flow N/C 3.00 07/07/22 00:00 73 22 146/85 (105) 94 High Flow N/C 4.00 07/06/22 23:00 67 23 136/75 (95) 94 High Flow N/C 4.00 07/06/22 22:00 73 21 130/99 (109) 94 High Flow N/C 4.00 07/06/22 21:00 72 19 127/68 (87) 93 High Flow N/C 4.00 07/06/22 20:00 75 34 127/74 (91) 96 High Flow N/C 4.00 07/06/22 20:00 92 High Flow N/C 3.00 07/06/22 19:24 100 High Flow N/C 4.00 07/06/22 19:00 75 18 134/78 (96) 97 High Flow N/C 4.00 07/06/22 19:00 80 07/06/22 18:18 94 High Flow N/C 4.00 07/06/22 18:00 71 44 125/74 (91) 90 High Flow N/C 5.00 07/06/22 17:00 72 51 110/55 (73) 95 High Flow N/C 5.00 07/06/22 16:00 75 36 135/75 (95) 96 High Flow N/C 5.00 07/06/22 16:00 95 High Flow N/C 3.00 07/06/22 15:00 71 19 122/76 (91) 94 High Flow N/C 5.00 I & O 07/07/22 07:00 Intake Total 350 ml Output Total 1325 ml Balance -975 ml Height & Weight Height: '" Weight: lbs. oz. kg; 24.00 BMI Method: General Appearance: No Apparent Distress HEENT: Other (endotracheal tube in place) Respiratory: Lungs Clear, No Respiratory Distress Cardiovascular: Regular Rate, Rhythm, No Murmur Capillary Refill: NONE Gastrointestinal: normal bowel sounds, non tender, soft, no organomegaly; No distended Extremity: No Pedal Edema Neurologic/Psychiatric: Alert, Oriented x3 Skin: Normal Color Results Lab Laboratory Tests 07/05/22 15:30 07/06/22 04:13 07/07/22 05:23 Assessment/Plan Assessment/Plan drop in BP most likely pt dry, will give saline bolus 500 mL over 30 min Critical Care: Critically Ill Patient Time spent with patient (mins): 15 BILL NIETO MD Jul 07, 2022 14:40
[2022-07-07] MEDS ORDERED: NS IV 500 ML 500 ML IV SCH (14:45)
[2022-07-07 14:58] VITALS: BP 94/63
[2022-07-07] MEDS: HYDROcodone/APAP 5 MG/325 MG (LORTAB) TAB PO PRN (14:58)
--- NOTE | 2022-07-07 18:47 | Progress Note - Cardiology ---
Cardiology SOAP Progress Note Subjective: No cp or palp or syncope No shortness of breath at rest No n/v/d No focal weakness Gen weakness and malaise present Objective: I&O/Vital Signs 07/07/22 07/07/22 07/07/22 07/07/22 07:00 07:00 07:32 08:00 Temp 36.2 Pulse 67 69 B/P (MAP) 141/83 (102) Pulse Ox 96 95 O2 Delivery High Flow N/C High Flow N/C O2 Flow Rate 4.00 4.00 07/07/22 07/07/22 07/07/22 07/07/22 08:00 09:00 10:00 12:00 Temp 36.0 Pulse 71 78 53 82 Resp 18 B/P (MAP) 156/76 (102) 139/94 (109) 134/66 (88) 94/63 (73) Pulse Ox 91 95 93 93 O2 Delivery High Flow N/C High Flow N/C High Flow N/C Nasal Cannula O2 Flow Rate 4.00 4.00 4.00 3.00 07/07/22 07/07/22 07/07/22 07/07/22 13:00 14:58 15:11 15:41 Temp 36.0 37.3 Pulse 84 84 Pulse Ox 93 95 O2 Delivery High Flow N/C O2 Flow Rate 2.00 07/07/22 16:00 Pulse 64 B/P (MAP) 168/90 (116) Pulse Ox 94 O2 Delivery Nasal Cannula O2 Flow Rate 3.00 07/07/22 00:00 Intake Total 300 ml Output Total 525 ml Balance -225 ml Constitutional: AAO x 3, other (thin) Respiratory: No accessory muscle use, No respiratory distress, No wheezing; other (prolonged exp phase) Cardiovascular: regular rate-rhythm, S1 and S2 Gastrointestional: soft Extremities: No pedal edema; no lower extremity edema bilateral Neurologic/Psychiatric: other (moves all extremities) Skin: normal color; No rash on exposed areas; other (abrasion to face) Results/Procedures: Labs Laboratory Tests 07/07/22 01:13: Glucometer 83 07/07/22 05:23: White Blood Count 9.5, Red Blood Count 3.50L, Hemoglobin 12.3L, Hematocrit 36L, Mean Corpuscular Volume 102H, Mean Corpuscular Hemoglobin 35H, Mean Corpuscular Hemoglobin Concent 35, Red Cell Distribution Width 12.6, Platelet Count 277, Mean Platelet Volume 10.6, Immature Granulocyte % (Auto) 1, Neutrophils (%) (Auto) 69, Lymphocytes (%) (Auto) 11L, Monocytes (%) (Auto) 17H, Eosinophils (%) (Auto) 1, Basophils (%) (Auto) 1, Neutrophils # (Auto) 6.6, Lymphocytes # (Auto) 1.1, Monocytes # (Auto) 1.6H, Eosinophils # (Auto) 0.1, Basophils # (Auto) 0.1, Immature Granulocyte # (Auto) 0.1, Sodium Level 138, Potassium Level 3.3L, Chloride Level 104, Carbon Dioxide Level 24, Anion Gap 10, Blood Urea Nitrogen 18, Creatinine 0.65, Estimat Glomerular Filtration Rate 107, BUN/Creatinine Ratio 28, Glucose Level 80, Calcium Level 9.8, Corrected Calcium 10.3H, Phosphorus Level 2.5, Magnesium Level 1.8, Total Bilirubin 0.7, Aspartate Amino Transf (AST/SGOT) 42H, Alanine Aminotransferase (ALT/SGPT) 42, Alkaline Phosphatase 115, Total Protein 6.5, Albumin 3.4 07/07/22 11:49: Glucometer 90 07/07/22 17:55: Glucometer 77 Microbiology 07/03/22 Blood Culture - Preliminary, Resulted No growth 07/03/22 Urine Culture - Final, Complete NO GROWTH 07/01/22 Gram Stain - Final, Complete 07/01/22 Sputum Culture - Final, Complete Haemophilus influenza YEAST A/P: Assessment: Witnessed arrest. Ventricular fibrillation. Single shock. ROSC achieved. EKG showed possible ST elevation in leads V2 and V3 therefore patient was brought directly to the [facility] on 07/02/22. - Coronary angiography on 07-02-[address] Novak did not show any occlusive coronary artery disease. Preserved LV function (however, subsequent echo showed cardiomyopathy). Aortogram did not show any aortic dissection. - ICD recommended for secondary prevention Episodes of bradycardia yesterday - Amiodarone gtt stopped - no further episodes Intubated following cardiac arrest - currently extubated Echocardiogram shows EF of 35 to 40%. Global hypokinesis. No LV thrombus noted. No significant valvular heart disease. No pericardial effusion. Acute hypercapnic respiratory failure, improving - CT chest shows left lower lobe collapse/atelectasis. No PE. Positive D- dimer. According to patient is a heavy smoker and alcoholic. Significant electrolyte abnormalities with hypokalemia and hypomagnesemia CT head did not show any significant active intracranial abnormality. Plan: * Continue heart failure meds to the extent tolerated * Amiodarone stopped due to bradycardia * Continue DVT prophylaxis * Monitor labs and correct any abnormalities * Advised to avoid any alcohol or tobacco use * ICD recommended for secondary prevention. We had a detailed discussion regarding indication, rational, procedure, benefits, risks, alternatives. He understands and wishes to discuss with his before he decides THA MURILLO MD FACP [facility] Jul 07, 2022 18:47
[2022-07-07] MEDS: AMIODARONE 200 MG (CORDARONE) TAB PO SCH (21:00)
[2022-07-07] MEDS ORDERED: SACUBITRIL/VALSARTAN 24/26 MG (ENTRESTO) TABLET PO SCH (21:00)
[2022-07-07] MEDS: MELATONIN 3 MG TABLET PO SCH (21:00)
[2022-07-07] MEDS: ENOXAPARIN 40 MG/0.4 ML (LOVENOX) SYR SC SCH (21:01)
[2022-07-08] MEDS: RT-ALBUTEROL/IPRATROPIUM 3 ML (DUONEB) VIAL INH SCH ×4 (02:57→20:52)
[2022-07-08 04:18] LABS: BASOPHILS # (AUTO) 0.1 10^3/uL (0.0-0.1); BASOPHILS % (AUTO) 1 % (0-10); EOSINOPHILS # (AUTO) 0.1 10^3/uL (0.0-0.3); EOSINOPHILS % (AUTO) 1 % (0-10); HEMATOCRIT 34 % (40-54); HEMOGLOBIN 11.8 g/dL (13.3-17.7); LYMPHOCYTES # (AUTO) 1.5 10^3/uL (1.0-4.0); LYMPHOCYTES % (AUTO) 14 % (12-44); MEAN CORPUSCULAR HEMOGLOBIN 36 pg (25-34); MEAN CORPUSCULAR HGB CONC 35 g/dL (32-36); MEAN CORPUSCULAR VOLUME 102 fL (80-99); MEAN PLATELET VOLUME 11.1 fL (9.0-12.2); MONOCYTES # (AUTO) 1.8 10^3/uL (0.0-1.0); MONOCYTES % (AUTO) 17 % (0-12); NEUTROPHILS # (AUTO) 7.1 10^3/uL (1.8-7.8); NEUTROPHILS % (AUTO) 66 % (42-75); PLATELET COUNT 342 10^3/uL (130-400); WHITE BLOOD COUNT 10.8 10^3/uL (4.3-11.0)
[2022-07-08 04:29] LABS: ALBUMIN 3.3 GM/DL (3.2-4.5)
[2022-07-08 04:31] LABS: CALCIUM 9.7 MG/DL (8.5-10.1)
[2022-07-08 04:32] LABS: TOTAL PROTEIN 6.4 GM/DL (6.4-8.2)
[2022-07-08 04:34] LABS: BILIRUBIN,TOTAL 0.5 MG/DL (0.1-1.0)
[2022-07-08 04:35] LABS: PHOSPHORUS 3.1 MG/DL (2.3-4.7)
[2022-07-08 04:36] LABS: CREATININE SERUM 0.72 MG/DL (0.60-1.30)
[2022-07-08 04:38] LABS: MAGNESIUM 1.9 MG/DL (1.6-2.4)
[2022-07-08] MEDS: inSUlin ASPART (NovoLOG) 1 UNIT/0.01 ML (CHARGE PER UNIT) SC SCH ×4 (05:15→17:55)
--- NOTE | 2022-07-08 08:45 | Tele-ICU Progress Note ---
Subjective Date Seen by a Provider: Jul 08, 2022 Time Seen by a Provider: 08:45 Sepsis Event Evaluation Height, Weight, BMI Height: '" Weight: lbs. oz. kg; 23.93 BMI Method: Exam Exam Patient acknowledged, consented, and participated in this virtual visit which was conducted using real time audio/video Vital Signs Date Time Temp Pulse Resp B/P (MAP) Pulse Ox O2 Delivery O2 Flow Rate FiO2 07/08/22 08:00 80 34 175/108 (134) Nasal Cannula 2.00 07/08/22 07:00 75 07/08/22 07:00 72 26 180/89 (113) Nasal Cannula 2.00 07/08/22 06:48 High Flow N/C 2.00 07/08/22 06:00 62 24 157/83 (115) Nasal Cannula 2.00 07/08/22 05:00 65 26 174/77 (108) 95 Nasal Cannula 2.00 07/08/22 04:02 98 Nasal Cannula 2.00 07/08/22 04:00 66 51 177/83 (123) Nasal Cannula 2.00 07/08/22 03:00 36.5 32 160/78 (98) 94 Nasal Cannula 2.00 07/08/22 02:59 97 High Flow N/C 2.00 07/08/22 02:00 64 25 180/94 (139) 95 Nasal Cannula 2.00 07/08/22 01:45 73 93 07/08/22 01:15 67 94 07/08/22 01:00 57 156/71 (110) 94 Nasal Cannula 2.00 07/08/22 01:00 62 07/08/22 00:45 66 94 Nasal Cannula 2.00 07/08/22 00:15 94 Nasal Cannula 07/08/22 00:00 68 18 145/92 (103) 96 Nasal Cannula 2.00 07/07/22 23:57 97 Nasal Cannula 2.00 07/07/22 23:00 36.1 66 20 161/81 (106) 95 Nasal Cannula 2.00 07/07/22 22:00 77 137/69 (91) 92 Nasal Cannula 2.00 07/07/22 21:02 94 High Flow N/C 2.00 07/07/22 21:00 68 16 167/76 (106) 94 Nasal Cannula 2.00 07/07/22 20:00 96 Nasal Cannula 2.00 07/07/22 20:00 36.8 73 18 145/70 (95) 95 Nasal Cannula 2.00 07/07/22 19:00 70 07/07/22 19:00 71 145/70 (95) 96 Nasal Cannula 3.00 07/07/22 16:00 64 168/90 (116) 94 Nasal Cannula 3.00 07/07/22 15:41 37.3 07/07/22 15:11 95 High Flow N/C 2.00 07/07/22 14:58 36.0 84 93 07/07/22 13:00 84 07/07/22 12:00 36.0 82 18 94/63 (73) 93 Nasal Cannula 3.00 07/07/22 10:00 53 134/66 (88) 93 High Flow N/C 4.00 07/07/22 09:00 78 139/94 (109) 95 High Flow N/C 4.00 I & O 07/08/22 07:00 Intake Total 2350 ml Output Total 2525 ml Balance -175 ml Height & Weight Height: '" Weight: lbs. oz. kg; 23.93 BMI Method: General Appearance: No Apparent Distress HEENT: Other (endotracheal tube in place) Respiratory: Lungs Clear, No Respiratory Distress Cardiovascular: Regular Rate, Rhythm, No Murmur Capillary Refill: NONE Gastrointestinal: normal bowel sounds, non tender, soft, no organomegaly; No distended Extremity: No Pedal Edema Neurologic/Psychiatric: Alert, Oriented x3 Skin: Normal Color Results Lab Laboratory Tests 07/07/22 05:23 07/08/22 03:53 MAXINE ANGEL MD Jul 08, 2022 08:45
[2022-07-08] MEDS: PANTOPRAZOLE 40 MG (PROTONIX) VIAL IV SCH (09:20)
[2022-07-08] MEDS: NICOTINE 21 MG (NICODERM) PATCH TD SCH (09:20)
[2022-07-08] MEDS: FOLIC ACID 1 MG TAB PO SCH (09:21)
[2022-07-08] MEDS: EMPAGLIFLOZIN 10 MG TABLET (JARDIANCE) PO SCH (09:21)
[2022-07-08] MEDS: FUROSEMIDE 40 MG (LASIX) TAB PO SCH (09:21)
[2022-07-08] MEDS: SPIRONOLACTONE 25 MG (ALDACTONE) TAB PO SCH (09:21)
[2022-07-08] MEDS: lisINopril 5 MG (PRINIVIL) TABLET PO SCH (09:21)
[2022-07-08] MEDS: HYDROcodone/APAP 5 MG/325 MG (LORTAB) TAB PO PRN ×3 (09:21→20:30)
[2022-07-08] MEDS: AMIODARONE 200 MG (CORDARONE) TAB PO SCH ×2 (09:22→20:21)
--- NOTE | 2022-07-08 09:31 | Physical Therapy Daily Note ---
PT Daily Note-Current Subjective Pt up on BSC, agreeable. Reports he continues to feel better. Pain in anterior chest but not rated. Pain Section J - Health Conditions 1. Rarely or not at all 2. Occasionally 3. Frequently 4. Almost constantly 8. Unable to answer Pain Effect on Sleep: 2 Pain Interference with Therapy: 2 Pain Interference w/Day-to-Day: 2 Mental Status Patient Orientation: Person, Place, Time, Situation Attachments: Bach Catheter Monitors Transfers SCALE: Activities may be completed with or without assistive devices. 1-Wlrvkbunlz-zzqnkkm completes the activity by him/herself with no assistance from a helper. 5-Set-up or Clean-up Assistance-helper sets up or cleans up; patient completes activity. [place] assists only prior to or following the activity. 4-Supervision or Touching Assistance-helper provides verbal cues and/or touching/steadying and/or contact guard assistance as patient completes activity. Assistance may be provided throughout the activity or intermittently. 3-Partial/Moderate Assistance-helper does LESS THAN HALF the effort. [place] lifts, holds or supports trunk or limbs, but provides less than half the effort. 2-Substantial/Maximal Assistance-helper does MORE THAN HALF the effort. [place] lifts or holds trunk or limbs and provides more than half the effort. 7-Shduoqesv-trppyr does ALL the effort. Patient does none of the effort to complete the activity. Or, the assistance of 2 or more helpers is required for the patient to complete the activity. If activity was not attempted, code reason: 7-Patient Refused. 9-Not Applicable-not attempted and the patient did not perform the activity before the current illness, exacerbation or injury. 10-Not Attempted due to Environmental Limitations-(lack of equipment, weather restraints, etc.). 88-Not Attempted due to Medical Conditions or Safety Concerns. Sit to Lying (QC): 6 Sit to Stand (QC): 5 Chair/Jiy-xh-Zswhe Xfer(QC): 5 Weight Bearing Right Lower Extremity: Right Full Weight Bearing Left Lower Extremity: Left Full Weight Bearing Gait Training Does the Patient Walk?: Yes Distance: 12 Walk 10 feet (QC): 4 (CGA) Gait Assistive Device: FWW Pt ambulated 12' in room with FWW, CGA and assist with lines. Performed standing marching at EOB with FWW x 30" with SBA-CGA. No retropulsion or LOB this date. Wheelchair Training Does the Pt Use a Wheelchair?: No Type of Wheelchair: N/A Exercises Seated Therapy Exercises: Long arc quads Seated Reps: 10 Treatments Functional mobility, transfers with FWW. Pt in bed with all needs met, nursing in room. Assessment Current Status: Excellent Progress Pt with significant improvement in balance this date, CGA-SBA with all mobility this date. PT Shelter Goals Shelter Goals PT Shelter Goals Time Frame: Aug 04, 2022 Roll Left & Right (QC): 3 Sit to Lying (QC): 3 Lying-Sitting on Side/Bed(QC): 3 Sit to Stand (QC): 3 Chair/Gjd-al-Sggxg Xfer(QC): 3 Toilet Transfer (QC): 3 Does the Patient Walk: Yes Walk 10 feet (QC): 3 Walk 50ft with 2 Turns (QC): 3 Walk 150 ft (QC): 3 1 Step (curb) (QC): 2 4 Steps (QC): 2 PT Plan Problem List Problem List: Activity Tolerance, Functional Strength, Safety, Balance, Gait, Transfer, Bed Mobility Treatment/Plan Treatment Plan: Continue Plan of Care Treatment Plan: Bed Mobility, Education, Functional Activity Mirtha, Functional Strength, Group Therapy, Gait, Safety, Therapeutic Exercise, Transfers Treatment Duration: Aug 04, 2022 Frequency: 6 times per week Estimated Hrs Per Day: .25 hour per day Patient and/or Family Agrees t: Yes Time Time In: 911 Time Out: 924 DATE: Jul 08, 2022 Total Billed Treatment Time: 13 Total Billed Treatment 1, FA x 13' MARGARITA LOWE DPDorinda Jul 08, 2022 09:30
--- NOTE | 2022-07-08 10:47 | Progress Note - Hospitalist ---
Subjective HPI/CC On Admission Date Seen by Provider: Jul 08, 2022 Marcos Crawford is a 62 year old male with PMH alcohol abuse, tobacco abuse, who presented after a cardiac arrest. [place] was [place] the golf course and was about to play in a tournament. He had reportedly been feeling bad for several days. His teeth are "all rotten" and he was scheduled to have his teeth pulled next Sunday. He obtained and was taking an antibiotic from a farm store. His is unsure what the antibiotics was. She does not think they recommended he take antibiotics. He had been having body aches. She reports that he told her he felt like he was going to . He had been reporting chest pain. He did not want to go to the tournament but he had already paid for it. He is an every day drinker. His daughter says he drinks "a lot". He reportedly gets shaky when he hasn't had a drink. She does not remember him going a day without a drink. He has never been admitted to the hospital with alcohol withdrawal. He has no known medical conditions. He does not take any medications daily. EMS found him in ventricular fibrillation. ROSC was quickly obtained. He was thought to have ST elevations on the EKG and was taken directly to the laboratory tester. Dr. Novak performed left heart cath which showed non-obstructive coronary artery disease and no other cause for his arrest. He was admitted to the ICU. Dr. Novak contacted the hospitalist service to assume care of the patient. Labs and imaging were ordered. TeleICU was consulted. Subjective/Events-last exam Pt continues to improve. He is more alert and talking more. Asking about getting his dog here to visit with a pet pass. Agreeable to the AICD now. I called and updated his daughter as well. Objective Exam Vital Signs Vital Signs Date Time Temp Pulse Resp B/P (MAP) Pulse Ox O2 Delivery O2 Flow Rate FiO2 07/08/22 10:00 68 185/81 (104) 97 Nasal Cannula 2.00 07/08/22 08:00 37.0 07/08/22 08:00 34 07/03/22 10:59 30 Capillary Refill : NONE General Appearance: No Apparent Distress, Thin Respiratory: Lungs Clear, No Respiratory Distress Cardiovascular: Regular Rate, Rhythm, No Murmur Neurologic/Psychiatric: Alert, Oriented x3 Results/Procedures Lab Laboratory Tests 07/08/22 03:53 Patient resulted labs reviewed. Imaging: Reviewed Imaging Films, Reviewed Imaging Report Assessment/Plan Assessment and Plan Assess & Plan/Chief Complaint Cardiac arrest Ventricular fibrillation Acute HFrEF Acute respiratory failure with hypoxia and hypercapnia Endotracheally intubated Hypokalemia Hypomagnesemia Alcohol dependence Elevated LFTs Hepatic steatosis Left lower lobe collapse Mucus plugging Misuse of medication Tobacco abuse Cardiology following, left heart cath without obstructive coronary artery disease MAT protocol Wean oxygen Completed course of Zosyn PT/OT/Speech IRF eval Will need AICD, pt reports was told tomorrow for placement Transfer to [place] DVT prophylaxis: Lovenox Critical Care Critically Ill Patient SUBHASH MCFADDEN MD Jul 08, 2022 10:47
--- NOTE | 2022-07-08 14:23 | Progress Note - Cardiology ---
Cardiology SOAP Progress Note Subjective: No cp or palp or syncope No shortness of breath at rest No n/v/d No focal weakness Gen weakness present Objective: I&O/Vital Signs 07/08/22 07/08/22 07/08/22 07/08/22 02:59 03:00 04:00 04:02 Temp 36.5 Pulse 66 Resp 32 51 B/P (MAP) 160/78 (98) 177/83 (123) Pulse Ox 97 94 98 O2 Delivery High Flow N/C Nasal Cannula Nasal Cannula Nasal Cannula O2 Flow Rate 2.00 2.00 2.00 2.00 07/08/22 07/08/22 07/08/22 07/08/22 05:00 06:00 06:48 07:00 Pulse 65 62 72 Resp 26 24 26 B/P (MAP) 174/77 (108) 157/83 (115) 180/89 (113) Pulse Ox 95 O2 Delivery Nasal Cannula Nasal Cannula High Flow N/C Nasal Cannula O2 Flow Rate 2.00 2.00 2.00 2.00 07/08/22 07/08/22 07/08/22 07/08/22 07:00 08:00 08:00 08:00 Temp 37.0 Pulse 75 80 Resp 34 B/P (MAP) 175/108 (134) Pulse Ox 94 O2 Delivery Nasal Cannula High Flow N/C O2 Flow Rate 2.00 2.00 07/08/22 07/08/22 07/08/22 07/08/22 10:00 11:00 12:00 12:00 Pulse 68 64 60 B/P (MAP) 185/81 (104) 162/87 (106) 171/89 (128) Pulse Ox 97 98 97 95 O2 Delivery Nasal Cannula Nasal Cannula High Flow N/C Nasal Cannula O2 Flow Rate 2.00 2.00 2.00 2.00 07/08/22 07/08/22 07/08/22 12:45 13:00 13:17 Temp 36.4 36.4 Pulse 71 82 Resp 18 B/P (MAP) 134/77 (96) O2 Delivery Nasal Cannula O2 Flow Rate 2.00 07/08/22 00:00 Intake Total 1775 ml Output Total 1950 ml Balance -175 ml Constitutional: AAO x 3, other (thin) Respiratory: No accessory muscle use, No respiratory distress, No wheezing Cardiovascular: regular rate-rhythm, S1 and S2 Gastrointestional: soft Extremities: No pedal edema; no lower extremity edema bilateral Neurologic/Psychiatric: other (moves all extremities) Skin: normal color; No rash on exposed areas; other (abrasion to face) Results/Procedures: Labs Laboratory Tests 07/07/22 17:55: Glucometer 77 07/07/22 23:45: Glucometer 87 07/08/22 03:53: White Blood Count 10.8, Red Blood Count 3.32L, Hemoglobin 11.8L, Hematocrit 34L, Mean Corpuscular Volume 102H, Mean Corpuscular Hemoglobin 36H, Mean Corpuscular Hemoglobin Concent 35, Red Cell Distribution Width 12.8, Platelet Count 342, Mean Platelet Volume 11.1, Immature Granulocyte % (Auto) 2, Neutrophils (%) (Auto) 66, Lymphocytes (%) (Auto) 14, Monocytes (%) (Auto) 17H, Eosinophils (%) (Auto) 1, Basophils (%) (Auto) 1, Neutrophils # (Auto) 7.1, Lymphocytes # (Auto) 1.5, Monocytes # (Auto) 1.8H, Eosinophils # (Auto) 0.1, Basophils # (Auto) 0.1, Immature Granulocyte # (Auto) 0.2H, Sodium Level 137, Potassium Level 4.0, Chloride Level 106, Carbon Dioxide Level 21, Anion Gap 10, Blood Urea Nitrogen 21H, Creatinine 0.72, Estimat Glomerular Filtration Rate 104, BUN/Creatinine Ratio 29, Glucose Level 80, Calcium Level 9.7, Corrected Calcium 10.3H, P hosphorus Level 3.1, Magnesium Level 1.9, Total Bilirubin 0.5, Aspartate Amino Transf (AST/SGOT) 35H, Alanine Aminotransferase (ALT/SGPT) 36, Alkaline Phosphatase 101, Total Protein 6.4, Albumin 3.3 07/08/22 11:35: Glucometer 85 Microbiology 07/03/22 Blood Culture - Preliminary, Resulted No growth 07/03/22 Urine Culture - Final, Complete NO GROWTH 07/01/22 Gram Stain - Final, Complete 07/01/22 Sputum Culture - Final, Complete Haemophilus influenza YEAST Laboratory Tests 07/07/22 05:23 07/08/22 03:53 A/P: Assessment: Witnessed arrest. Ventricular fibrillation. Single shock. ROSC achieved. EKG showed possible ST elevation in leads V2 and V3 therefore patient was brought directly to the Process Analyst on 07/02/22. - Coronary angiography on 07-02-[address] Novak did not show any occlusive coronary artery disease. Preserved LV function (however, subsequent echo showed cardiomyopathy). Aortogram did not show any aortic dissection. - ICD recommended for secondary prevention Episodes of bradycardia yesterday - Amiodarone gtt stopped - no further episodes Intubated following cardiac arrest - currently extubated Echocardiogram shows EF of 35 to 40%. Global hypokinesis. No LV thrombus noted. No significant valvular heart disease. No pericardial effusion. Acute hypercapnic respiratory failure, improving - CT chest shows left lower lobe collapse/atelectasis. No PE. Positive D- dimer. According to patient is a heavy smoker and alcoholic. Significant electrolyte abnormalities with hypokalemia and hypomagnesemia CT head did not show any significant active intracranial abnormality. Plan: * Continue heart failure meds to the extent tolerated * Amiodarone stopped due to bradycardia * Continue DVT prophylaxis * Monitor labs and correct any abnormalities * Advised to avoid any alcohol or tobacco use * ICD recommended for secondary prevention. We again had a detailed discussion regarding indication, rational, procedure, benefits, risks, alternatives with him and also today with his . He understands and wishes to proceed THA MURILLO MD [facility] Jul 08, 2022 14:23
[2022-07-08 16:21] VITALS: BP 182/80
[2022-07-08] MEDS: hydrALAZINE (APESOLINE) 20 MG/ML VIAL IV PRN (16:43)
[2022-07-08 17:10] VITALS: BP 169/77
[2022-07-08 19:36] VITALS: BP 177/80
[2022-07-08] MEDS: ENOXAPARIN 40 MG/0.4 ML (LOVENOX) SYR SC SCH (20:21)
[2022-07-08] MEDS: MELATONIN 3 MG TABLET PO SCH (20:21)
[2022-07-08 23:34] VITALS: BP 148/70
[2022-07-09] MEDS: inSUlin ASPART (NovoLOG) 1 UNIT/0.01 ML (CHARGE PER UNIT) SC SCH ×4 (00:30→17:37)
[2022-07-09] MEDS: RT-ALBUTEROL/IPRATROPIUM 3 ML (DUONEB) VIAL INH SCH ×4 (03:02→20:04)
[2022-07-09 03:13] VITALS: BP 139/77
[2022-07-09] MEDS: HYDROcodone/APAP 5 MG/325 MG (LORTAB) TAB PO PRN ×2 (04:42→19:42)
[2022-07-09 05:43] LABS: BASOPHILS # (AUTO) 0.1 10^3/uL (0.0-0.1); BASOPHILS % (AUTO) 1 % (0-10); EOSINOPHILS # (AUTO) 0.2 10^3/uL (0.0-0.3); EOSINOPHILS % (AUTO) 2 % (0-10); HEMATOCRIT 35 % (40-54); LYMPHOCYTES # (AUTO) 1.6 10^3/uL (1.0-4.0); LYMPHOCYTES % (AUTO) 16 % (12-44); MEAN CORPUSCULAR HEMOGLOBIN 35 pg (25-34); MEAN CORPUSCULAR HGB CONC 35 g/dL (32-36); MEAN CORPUSCULAR VOLUME 100 fL (80-99); MEAN PLATELET VOLUME 10.9 fL (9.0-12.2); MONOCYTES # (AUTO) 1.5 10^3/uL (0.0-1.0); MONOCYTES % (AUTO) 15 % (0-12); NEUTROPHILS # (AUTO) 6.9 10^3/uL (1.8-7.8); NEUTROPHILS % (AUTO) 66 % (42-75); PLATELET COUNT 410 10^3/uL (130-400); WHITE BLOOD COUNT 10.5 10^3/uL (4.3-11.0)
[2022-07-09 06:01] LABS: ALBUMIN 3.4 GM/DL (3.2-4.5); POTASSIUM 3.3 MMOL/L (3.6-5.0)
[2022-07-09 06:02] LABS: CALCIUM 9.5 MG/DL (8.5-10.1)
[2022-07-09 06:03] LABS: TOTAL PROTEIN 6.4 GM/DL (6.4-8.2)
[2022-07-09 06:05] LABS: BILIRUBIN,TOTAL 0.5 MG/DL (0.1-1.0)
[2022-07-09 06:07] LABS: CREATININE SERUM 0.69 MG/DL (0.60-1.30); PHOSPHORUS 3.2 MG/DL (2.3-4.7)
[2022-07-09 06:10] LABS: MAGNESIUM 1.8 MG/DL (1.6-2.4)
[2022-07-09 07:46] VITALS: BP 164/72
[2022-07-09] MEDS: SPIRONOLACTONE 25 MG (ALDACTONE) TAB PO SCH (08:15)
[2022-07-09] MEDS: FUROSEMIDE 40 MG (LASIX) TAB PO SCH (08:15)
[2022-07-09] MEDS: AMIODARONE 200 MG (CORDARONE) TAB PO SCH ×2 (08:15→19:39)
[2022-07-09] MEDS: EMPAGLIFLOZIN 10 MG TABLET (JARDIANCE) PO SCH (08:16)
[2022-07-09] MEDS: FOLIC ACID 1 MG TAB PO SCH (08:16)
[2022-07-09] MEDS: lisINopril 5 MG (PRINIVIL) TABLET PO SCH (08:16)
[2022-07-09] MEDS: PANTOPRAZOLE 40 MG (PROTONIX) VIAL IV SCH (08:17)
[2022-07-09] MEDS: NICOTINE 21 MG (NICODERM) PATCH TD SCH (08:17)
[2022-07-09] MEDS ORDERED: LIDOCAINE 1% INJ 20 ML VIAL ONE (10:53)
[2022-07-09] MEDS ORDERED: HEParin (CATH LAB) 1,000 ML IV ONE (10:54)
[2022-07-09] MEDS ORDERED: ceFAZolin INJECTION 0 MG ONE (10:54)
[2022-07-09] MEDS ORDERED: NS IV 1000 ML 2,000 ML ONE (10:54)
[2022-07-09] MEDS ORDERED: NS (IVPB) 250 ML ONE (11:08)
[2022-07-09] MEDS ORDERED: VANCOMYCIN 1000 MG/VIAL ONE (11:08)
[2022-07-09] MEDS ORDERED: MIDAZOLAM 5 MG/5 ML (VERSED) VIAL ONE ×2 (11:10→12:20)
[2022-07-09] MEDS ORDERED: fentaNYL INJ 100 MCG/2 ML AMP ONE ×2 (11:10→12:20)
--- NOTE | 2022-07-09 11:34 | Progress Note - Hospitalist ---
Subjective HPI/CC On Admission Date Seen by Provider: Jul 09, 2022 Marcos Crawford is a 62 year old male with PMH alcohol abuse, tobacco abuse, who presented after a cardiac arrest. He was at the golf course and was about to play in a tournament. He had reportedly been feeling bad for several days. His teeth are "all rotten" and he was scheduled to have his teeth pulled next Sunday. He obtained and was taking an antibiotic from a farm store. His is unsure what the antibiotics was. She does not think they recommended he take antibiotics. He had been having body aches. She reports that he told her he felt like he was going to . He had been reporting chest pain. He did not want to go [facility] [employer] but he had already paid for it. He is an every day drinker. His daughter says he drinks "a lot". He reportedly gets shaky when he hasn't had a drink. She does not remember him going a day without a drink. He has never been admitted to the hospital with alcohol withdrawal. He has no known medical conditions. He does not take any medications daily. EMS found him in ventricular fibrillation. ROSC was quickly obtained. He was thought to have ST elevations on the EKG and was taken directly to the dental laboratory technology teacher. Dr. Novak performed left heart cath which showed non-obstructive coronary artery disease and no other cause for his arrest. He was admitted to the ICU. Dr. Novak contacted the hospitalist service to assume care of the patient. Labs and imaging were ordered. TeleICU was consulted. Subjective/Events-last exam Pt reports feeling well. No complaints. Planning for AICD today. Was able to see his dog yesterday. He is hopeful to DC home tomorrow. Discussed that this is an ambition goal but we will see how he does with PT and then talk to family about support structure at home. Objective Exam Vital Signs Vital Signs Date Time Temp Pulse Resp B/P (MAP) Pulse Ox O2 Delivery O2 Flow Rate FiO2 07/09/22 09:35 95 Nasal Cannula 2.00 07/09/22 07:46 36.6 59 18 164/72 (102) 07/03/22 10:59 30 Capillary Refill : NONE General Appearance: No Apparent Distress, WD/WN Respiratory: Lungs Clear, No Respiratory Distress Cardiovascular: Regular Rate, Rhythm, No Murmur Gastrointestinal: Normal Bowel Sounds, Soft Neurologic/Psychiatric: Alert, Oriented x3 Results/Procedures Lab Laboratory Tests 07/09/22 05:03 Patient resulted labs reviewed. Imaging: Reviewed Imaging Films, Reviewed Imaging Report Assessment/Plan Assessment and Plan Assess & Plan/Chief Complaint Cardiac arrest Ventricular fibrillation Acute HFrEF Acute respiratory failure with hypoxia and hypercapnia Endotracheally intubated Hypokalemia Hypomagnesemia Alcohol dependence Elevated LFTs Hepatic steatosis Left lower lobe collapse Mucus plugging Misuse of medication Tobacco abuse Cardiology following, left heart cath without obstructive coronary artery disease MAT protocol Wean oxygen as above Completed course of Zosyn PT/OT/Speech IRF eval AICD today DVT prophylaxis: Lovenox Critical Care Critically Ill Patient SUBHASH MCFADDEN MD Jul 09, 2022 11:34
[2022-07-09 12:07] VITALS: BP 155/70
[2022-07-09] MEDS ORDERED: diphenhydrAMINE 50 MG/ML INJ (BENADRYL) ONE (12:21)
--- NOTE | 2022-07-09 14:27 | Progress Note - Cardiology ---
Cardiology SOAP Progress Note Subjective: No cp or palp or syncope or shortness of breath No n/v/d No focal weakness Gen weakness present Objective: I&O/Vital Signs 07/09/22 07/09/22 07/09/22 07/09/22 03:02 03:13 07:00 07:46 Temp 37.1 36.6 Pulse 66 63 59 Resp 18 18 B/P (MAP) 139/77 (97) 164/72 (102) Pulse Ox 94 91 94 O2 Delivery High Flow N/C Nasal Cannula Nasal Cannula O2 Flow Rate 2.00 2.00 2.00 07/09/22 07/09/22 07/09/22 08:00 09:35 12:07 Temp 36.6 Pulse 63 Resp 18 B/P (MAP) 155/70 (98) Pulse Ox 94 95 95 O2 Delivery Nasal Cannula Nasal Cannula Nasal Cannula O2 Flow Rate 2.00 2.00 2.00 07/09/22 00:00 Intake Total 500 ml Output Total 1200 ml Balance -700 ml Constitutional: AAO x 3, other (thin) Respiratory: No accessory muscle use, No respiratory distress, No wheezing Cardiovascular: regular rate-rhythm, S1 and S2 Gastrointestional: soft Extremities: No pedal edema; no lower extremity edema bilateral Neurologic/Psychiatric: other (moves all extremities) Skin: normal color; No rash on exposed areas; other (abrasion to face) Results/Procedures: Labs Laboratory Tests 07/08/22 17:16: Glucometer 78 07/08/22 23:38: Glucometer 99 07/09/22 05:03: White Blood Count 10.5, Red Blood Count 3.45L, Hemoglobin 12.0L, Hematocrit 35L, Mean Corpuscular Volume 100H, Mean Corpuscular Hemoglobin 35H, Mean Corpuscular Hemoglobin Concent 35, Red Cell Distribution Width 12.6, Platelet Count 410H, Mean Platelet Volume 10.9, Immature Granulocyte % (Auto) 2, Neutrophils (%) (Auto) 66, Lymphocytes (%) (Auto) 16, Monocytes (%) (Auto) 15H, Eosinophils (%) (Auto) 2, Basophils (%) (Auto) 1, Neutrophils # (Auto) 6.9, Lymphocytes # (Auto) 1.6, Monocytes # (Auto) 1.5H, Eosinophils # (Auto) 0.2, Basophils # (Auto) 0.1, Immature Granulocyte # (Auto) 0.2H, Sodium Level 135, Potassium Level 3.3L, Chloride Level 102, Carbon Dioxide Level 22, Anion Gap 11, Blood Urea Nitrogen 19H, Creatinine 0.69, Estimat Glomerular Filtration Rate 105, BUN/Creatinine Ratio 28, Glucose Level 81, Calcium Level 9.5, Corrected Calcium 10.0, Phosphorus Level 3.2, Magnesium Level 1.8, Total Bilirubin 0.5, Aspartate Amino Transf (AST/SGOT) 31, Alanine Aminotransferase (ALT/SGPT) 35, Alkaline Phosphatase 105, Total Protein 6.4, Albumin 3.4 07/09/22 05:18: Glucometer 83 07/09/22 11:28: Glucometer 101 Microbiology 07/03/22 Blood Culture - Preliminary, Resulted No growth 07/03/22 Urine Culture - Final, Complete NO GROWTH 07/01/22 Gram Stain - Final, Complete 07/01/22 Sputum Culture - Final, Complete Haemophilus influenza YEAST Laboratory Tests 07/08/22 03:53 07/09/22 05:03 A/P: Assessment: Witnessed arrest. Ventricular fibrillation. Single shock. ROSC achieved. EKG showed possible ST elevation in leads V2 and V3 therefore patient was brought directly to the Senior Benefits Specialist on 07/02/22. - Coronary angiography on 07-02-[address] Novak did not show any occlusive coronary artery disease. Preserved LV function (however, subsequent echo showed cardiomyopathy). Aortogram did not show any aortic dissection. - Dual chamber ICD implanted on 07/09/22 for secondary prevention Intubated following cardiac arrest - currently extubated Echocardiogram shows EF of 35 to 40%. Global hypokinesis. No LV thrombus noted. No significant valvular heart disease. No pericardial effusion. Acute hypercapnic respiratory failure, improving - CT chest shows left lower lobe collapse/atelectasis. No PE. Positive D- dimer. According to patient is a heavy smoker and alcoholic. Significant electrolyte abnormalities with hypokalemia and hypomagnesemia CT head did not show any significant active intracranial abnormality. Plan: * Continue heart failure meds to the extent tolerated * Amiodarone stopped due to bradycardia * Continue DVT prophylaxis * Monitor labs and correct any abnormalities * Advised to avoid any alcohol or tobacco use * ICD implanted after we again had a detailed discussion regarding indication, rational, procedure, benefits, risks, alternatives with him and he wished to proceed THA MURILLO MD FACP FAC [facility] Jul 09, 2022 14:27
[2022-07-09] MEDS ORDERED: PATIENT MAY USE OWN MEDS, ALL PO SCH (14:30)
[2022-07-09] MEDS ORDERED: KCL 20 MEQ TAB (K-DUR) PO NR (14:30)
[2022-07-09] MEDS ORDERED: NS IV 1000 ML 1,000 ML IV SCH (14:30)
--- NOTE | 2022-07-09 14:50 | Diagnostic Imaging Report ---
CHEST PA/LAT (2 VIEW) Indication: Pacemaker placement Comparison: 07/06/2022 Findings: Left pectoral transvenous pacemaker/ICD has intact leads with electrodes terminating over the right atrium and right ventricle. No pulmonary mass or consolidation. No pleural effusion or pneumothorax. Normal heart size and mediastinal contours. Impression: No pneumothorax following left pectoral transvenous AICD placement. Dictated by: Dictated on workstation # [id number]
[2022-07-09 16:45] VITALS: BP 133/71
[2022-07-09] MEDS: VANCOMYCIN INJECTION 1,000 MG in NS (IVPB) 250 ML IV SCH (17:38)
[2022-07-09 19:13] VITALS: BP 137/66
[2022-07-09] MEDS: MELATONIN 3 MG TABLET PO SCH (19:39)
--- NOTE | 2022-07-09 21:25 | OPERATIVE REPORT ---
DATE OF SERVICE: 07/09/2022 PREOPERATIVE DIAGNOSIS: Episode of ventricular fibrillation arrest, secondary prevention. POSTOPERATIVE DIAGNOSIS: Episode of ventricular fibrillation arrest, secondary prevention. PROCEDURE: Dual chamber pacemaker defibrillator implantation. ESTIMATED BLOOD LOSS: Less than 20 mL The patient is a 62-year-old gentleman who presented with ventricular fibrillation, cardiac arrest from which he was successfully resuscitated. Cardiac catheterization by Dr. Novak did not show significant coronary disease. Permanent defibrillator implantation was recommended for secondary prevention. He did not meet criteria for biventricular device because the QRS duration is less than 110 milliseconds. He was on low-dose Lovenox (40 mg once a day) for prophylaxis of deep venous thrombosis. This was held for 15 hours prior to the device implantation. DESCRIPTION OF PROCEDURE: Informed consent was obtained. He was brought to the cardiac catheterization laboratory in a fasting state. The left prepectoral area was prepared and draped in the usual sterile fashion. A 1% lidocaine used for local anesthesia. Modified Seldinger technique was used to advance 2 guidewires into the left subclavian vein and the tips of the wire were placed in the right atrium. The guidewires were used to advance sheaths and the wires were removed. The sheaths were used to advance leads and the sheaths were removed. All lead manipulation was carried out under fluoroscopy. The tip of the ventricular lead was placed at the right ventricular apex and the tip of the atrial lead was placed at the right atrial appendage. The leads were sutured to the prepectoral fascia using sleeves and 0 Ethibond. Good capture and sensing thresholds were obtained. There was no diaphragmatic stimulation at maximum output through either lead pacing. The pacemaker pocket was thoroughly irrigated with saline. Good hemostasis was assured. The pocket had initially been packed with saline gauze. This was removed prior to irrigation of the pocket with saline. The leads were then attached to a dual chamber pacemaker defibrillator and the device was placed in a TYRX pouch and the device and the leads were placed in the pocket and the pocket was closed in 2 layers using 3-0 Vicryl. The patient tolerated the procedure well. The atrial lead is Medtronic model 4076-52 with serial number [id number]. The ventricular lead is Medtronic model 1990F00 serial number [id number]. The device is Medtronic model [id number] with serial number [id number]. The right atrial capture threshold is 0.5 volts at 0.5 milliseconds. The atrial lead impedance is 696 ohms. P-wave amplitude is 3 millivolts. The ventricular capture threshold is 0.5 volts at 0.4 milliseconds. Ventricular pacing lead impedance is 671 ohms. R waves measured at 18.2 millivolts. The pacemaker is in the AAIR to DDDR mode with a lower rate of 60 beats per minute and upper tracking rate of 130 beats per minute. Ventricular zone is set at 176 beats per minute. Ventricular fibrillation zone is set at 200 beats per minute. Job ID: [id number] DocumentID: [id number] Dictated Date: 07/09/2022 14:11:27 Insulator Technician Date: 07/09/2022 21:23:00 Dictated By: THA MURILLO MD; DEJUAN; FACP; FACC;
[2022-07-10] VITALS (7 sets, daily range): BP systolic 106–174; BP diastolic 68–87
[2022-07-10] MEDS: inSUlin ASPART (NovoLOG) 1 UNIT/0.01 ML (CHARGE PER UNIT) SC SCH ×2 (00:04→05:04)
[2022-07-10] MEDS: HYDROcodone/APAP 5 MG/325 MG (LORTAB) TAB PO PRN ×3 (00:05→21:12)
[2022-07-10] MEDS: VANCOMYCIN INJECTION 1,000 MG in NS (IVPB) 250 ML IV SCH ×2 (02:26→15:25)
[2022-07-10] MEDS: RT-ALBUTEROL/IPRATROPIUM 3 ML (DUONEB) VIAL INH SCH ×4 (02:31→21:07)
[2022-07-10] MEDS: hydrALAZINE (APESOLINE) 20 MG/ML VIAL IV PRN (03:47)
[2022-07-10 05:29] LABS: BASOPHILS # (AUTO) 0.1 10^3/uL (0.0-0.1); BASOPHILS % (AUTO) 1 % (0-10); EOSINOPHILS # (AUTO) 0.2 10^3/uL (0.0-0.3); EOSINOPHILS % (AUTO) 1 % (0-10); HEMATOCRIT 37 % (40-54); HEMOGLOBIN 13.1 g/dL (13.3-17.7); LYMPHOCYTES # (AUTO) 1.5 10^3/uL (1.0-4.0); LYMPHOCYTES % (AUTO) 13 % (12-44); MEAN CORPUSCULAR HEMOGLOBIN 36 pg (25-34); MEAN CORPUSCULAR HGB CONC 35 g/dL (32-36); MEAN CORPUSCULAR VOLUME 101 fL (80-99); MONOCYTES # (AUTO) 1.3 10^3/uL (0.0-1.0); MONOCYTES % (AUTO) 12 % (0-12); NEUTROPHILS % (AUTO) 72 % (42-75); PLATELET COUNT 431 10^3/uL (130-400); WHITE BLOOD COUNT 11.1 10^3/uL (4.3-11.0)
[2022-07-10 05:42] LABS: ALBUMIN 3.5 GM/DL (3.2-4.5); POTASSIUM 3.2 MMOL/L (3.6-5.0)
[2022-07-10 05:43] LABS: CALCIUM 9.5 MG/DL (8.5-10.1)
[2022-07-10 05:44] LABS: TOTAL PROTEIN 6.7 GM/DL (6.4-8.2)
[2022-07-10 05:46] LABS: BILIRUBIN,TOTAL 0.6 MG/DL (0.1-1.0)
[2022-07-10 05:47] LABS: PHOSPHORUS 2.5 MG/DL (2.3-4.7)
[2022-07-10 05:48] LABS: CREATININE SERUM 0.69 MG/DL (0.60-1.30)
[2022-07-10 05:51] LABS: MAGNESIUM 1.7 MG/DL (1.6-2.4)
[2022-07-10] MEDS: FUROSEMIDE 40 MG (LASIX) TAB PO SCH (08:08)
[2022-07-10] MEDS: AMIODARONE 200 MG (CORDARONE) TAB PO SCH (08:08)
[2022-07-10] MEDS: lisINopril 5 MG (PRINIVIL) TABLET PO SCH (08:09)
[2022-07-10] MEDS: FOLIC ACID 1 MG TAB PO SCH (08:09)
[2022-07-10] MEDS: SPIRONOLACTONE 25 MG (ALDACTONE) TAB PO SCH (08:09)
[2022-07-10] MEDS: NICOTINE 21 MG (NICODERM) PATCH TD SCH (08:10)
[2022-07-10] MEDS: EMPAGLIFLOZIN 10 MG TABLET (JARDIANCE) PO SCH (08:10)
[2022-07-10] MEDS: PANTOPRAZOLE 40 MG (PROTONIX) VIAL IV SCH (08:10)
--- NOTE | 2022-07-10 10:27 | Physical Therapy Daily Note ---
PT Daily Note-Current Subjective Patient agrees to therapy. Mildly confused. Pain Section J - Health Conditions 1. Rarely or not at all 2. Occasionally 3. Frequently 4. Almost constantly 8. Unable to answer Pain Effect on Sleep: 2 Pain Interference with Therapy: 2 Pain Interference w/Day-to-Day: 2 Mental Status Patient Orientation: Person, Situation Attachments: IV Transfers SCALE: Activities may be completed with or without assistive devices. 6-Bnasvkvuoo-wxkmthr completes the activity by him/herself with no assistance from a helper. 5-Set-up or Clean-up Assistance-helper sets up or cleans up; patient completes activity. [place] assists only prior to or following the activity. 4-Supervision or Touching Assistance-helper provides verbal cues and/or touching/steadying and/or contact guard assistance as patient completes activity. Assistance may be provided throughout the activity or intermittently. 3-Partial/Moderate Assistance-helper does LESS THAN HALF the effort. [place] lifts, holds or supports trunk or limbs, but provides less than half the effort. 2-Substantial/Maximal Assistance-helper does MORE THAN HALF the effort. [place] lifts or holds trunk or limbs and provides more than half the effort. 3-Xcumellom-earjda does ALL the effort. Patient does none of the effort to complete the activity. Or, the assistance of 2 or more helpers is required for the patient to complete the activity. If activity was not attempted, code reason: 7-Patient Refused. 9-Not Applicable-not attempted and the patient did not perform the activity before the current illness, exacerbation or injury. 10-Not Attempted due to Environmental Limitations-(lack of equipment, weather restraints, etc.). 88-Not Attempted due to Medical Conditions or Safety Concerns. Sit to Stand (QC): 4 Chair/Ake-kl-Sqqcm Xfer(QC): 4 Weight Bearing Right Lower Extremity: Right Full Weight Bearing Left Lower Extremity: Left Full Weight Bearing Gait Training Distance: >500' Walk 10 feet (QC): 4 Walk 50 ft with 2 Turns(QC): 4 Walk 150 ft (QC): 4 Gait Assistive Device: None due to cling left UE for pacemaker placement, patient unable to utilize FWW/CGA for safety without AD with a few episodes of unsteady gait with self correct Assessment Patient much improved with gross motor skills on this date. PT to continue to address functional strength and mobility to ensure safe return to home at maximum LOF. PT Prison Goals Pharmacy Aide Goals PT Prison Goals Time Frame: Aug 04, 2022 Roll Left & Right (QC): 3 Sit to Lying (QC): 3 Lying-Sitting on Side/Bed(QC): 3 Sit to Stand (QC): 3 Chair/Isx-lw-Luzzy Xfer(QC): 3 Toilet Transfer (QC): 3 Does the Patient Walk: Yes Walk 10 feet (QC): 3 Walk 50ft with 2 Turns (QC): 3 Walk 150 ft (QC): 3 1 Step (curb) (QC): 2 4 Steps (QC): 2 PT Plan Treatment/Plan Treatment Plan: Continue Plan of Care Treatment Plan: Bed Mobility, Education, Functional Activity Mirtha, Functional Strength, Group Therapy, Gait, Safety, Therapeutic Exercise, Transfers Treatment Duration: Aug 04, 2022 Frequency: 6 times per week Estimated Hrs Per Day: .25 hour per day Patient and/or Family Agrees t: Yes Time Time In: 923 Time Out: 933 DATE: Jul 10, 2022 Total Billed Treatment Time: 10 Total Billed Treatment 1 visit FA 10 min TOM JEROME PT Jul 10, 2022 10:27
--- NOTE | 2022-07-10 10:44 | Progress Note - Cardiology ---
Cardiology SOAP Progress Note Subjective: Sitting up in the recliner with family No c/o CP or palpitations C/O exertional dyspnea which is improving Objective: I&O/Vital Signs 07/10/22 07/10/22 07/10/22 07/11/22 20:00 21:07 23:32 01:00 Temp 36.8 Pulse 72 60 Resp 16 B/P (MAP) 133/68 (89) Pulse Ox 98 98 O2 Delivery Nasal Cannula Room Air Room Air O2 Flow Rate 1.50 07/11/22 07/11/22 03:16 07:47 Temp 36.5 37.0 Pulse 65 74 Resp 18 18 B/P (MAP) 137/67 (90) 129/66 (87) Pulse Ox 91 96 O2 Delivery Room Air Nasal Cannula O2 Flow Rate 1.00 07/11/22 00:00 Intake Total 2730 ml Output Total 1650 ml Balance 1080 ml Side: left Device Insertion Site: without hematoma Swelling: without swelling Bruising: mild bruising Constitutional: AAO x 3, other (thin) Respiratory: No accessory muscle use, No respiratory distress, No wheezing Cardiovascular: regular rate-rhythm, S1 and S2 Gastrointestional: soft Extremities: No pedal edema; no lower extremity edema bilateral Neurologic/Psychiatric: other (moves all extremities) Skin: normal color; No rash on exposed areas; other (abrasion to face) Results/Procedures: Labs Laboratory Tests 07/11/22 05:15: Sodium Level 132L, Potassium Level 3.9, Chloride Level 100, Carbon Dioxide Level 21, Anion Gap 11, Blood Urea Nitrogen 14, Creatinine 0.72, Estimat Glomerular Filtration Rate 104, BUN/Creatinine Ratio 19, Glucose Level 80, Calcium Level 9.2, Corrected Calcium 9.6, Phosphorus Level 2.6, Magnesium Level 1.9, Total Bilirubin 0.7, Aspartate Amino Transf (AST/SGOT) 24, Alanine Aminotransferase (ALT/SGPT) 27, Alkaline Phosphatase 103, Total Protein 6.4, Albumin 3.5 Microbiology 07/03/22 Blood Culture - Final, Complete No growth 07/03/22 Urine Culture - Final, Complete NO GROWTH 07/01/22 Gram Stain - Final, Complete 07/01/22 Sputum Culture - Final, Complete Haemophilus influenza YEAST A/P: Assessment: Witnessed arrest. Ventricular fibrillation. Single shock. ROSC achieved. EKG showed possible ST elevation in leads V2 and V3 therefore patient was brought directly to the Call Worker Person on 07/02/22. - Coronary angiography on 07-02-[address] Novak did not show any occlusive coronary artery disease. Preserved LV function (however, subsequent echo showed cardiomyopathy). Aortogram did not show any aortic dissection. - Dual chamber ICD implanted on 07/09/22 for secondary prevention Intubated following cardiac arrest - currently extubated Echocardiogram shows EF of 35 to 40%. Global hypokinesis. No LV thrombus noted. No significant valvular heart disease. No pericardial effusion. Acute hypercapnic respiratory failure, improving - CT chest shows left lower lobe collapse/atelectasis. No PE. Positive D- dimer. According to patient is a heavy smoker and alcoholic. Significant electrolyte abnormalities with hypokalemia and hypomagnesemia CT head did not show any significant active intracranial abnormality. Plan: * Continue heart failure meds to the extent tolerated - HTN and no further bradycardia - increase Lisinopril and Coreg doses * Continue DVT prophylaxis * Monitor labs and correct any abnormalities * Advised to avoid any alcohol or tobacco use * ICD implanted after we again had a detailed discussion regarding indication, rational, procedure, benefits, risks, alternatives with him and he wished to proceed [facility] Jul 10, 2022 10:44
[2022-07-10] MEDS ORDERED: lisINopril 5 MG (PRINIVIL) TABLET PO ONE (11:30)
[2022-07-10] MEDS ORDERED: KCL 20 MEQ TAB (K-DUR) PO ONE (11:30)
--- NOTE | 2022-07-10 11:49 | Occupational Ther Daily Note ---
OT Current Status-Daily Note Subjective Transfer to 4 medical from ICU w/ notable disorientation confusion. Required redirection and spatial orientation. Agreeable to OT Mental Status/Objective Patient Orientation: Person, Place, Situation Attachments: Other-See Comments (sling s/p PPM) LUE Sling too small, OT exchanged for Large, ROM To fingers, wrist and elbow education provided ADL-Treatment Therapy Code Descriptions/Definitions Functional [place] Measure: 0=Not Assessed/NA 4=Minimal Assistance 1=Total Assistance 5=Supervision or Setup 2=Maximal Assistance 6=Modified [place] 3=Moderate Assistance 7=Complete IndependenceSCALE: Activities may be completed with or without assistive devices. 9-Xsvwaxptrf-ggrhslo completes the activity by him/herself with no assistance from a helper. 5-Set-up or Clean-up Assistance-helper sets up or cleans up; patient completes activity. [place] assists only prior to or following the activity. 4-Supervision or Touching Assistance-helper provides verbal cues and/or touching/steadying and/or contact guard assistance as patient completes activity. Assistance may be provided throughout the activity or intermittently. 3-Partial/Moderate Assistance-helper does LESS THAN HALF the effort. [place] lifts, holds or supports trunk or limbs, but provides less than half the effort. 2-Substantial/Maximal Assistance-helper does MORE THAN HALF the effort. [place] lifts or holds trunk or limbs and provides more than half the effort. 8-Ovcfaixnf-obnotq does ALL the effort. Patient does none of the effort to complete the activity. Or, the assistance of 2 or more helpers is required for the patient to complete the activity. If activity was not attempted, code reason: 7-Patient Refused. 9-Not Applicable-not attempted and the patient did not perform the activity before the current illness, exacerbation or injury. 10-Not Attempted due to Environmental Limitations-(lack of equipment, weather restraints, etc.). 88-Not Attempted due to Medical Conditions or Safety Concerns. Eating (QC): 6 Oral Hygiene (QC): 5 Shower/Bathe Self (QC): 7 Upper Body Dressing (QC): 3 (Education for fit of sling and AROM limits) Lower Body Dressing (QC): 4 On/Off Footwear: 4 Toileting Hygiene (QC): 4 Toilet Transfer (QC): 4 Education OT Patient Education: Correct positioning, Energy conservation, Exercise program, Instructions to caregiver, Modified ADL techniques, Progress toward Goal/Update tx plan, Purpose of tx/functional activities, Reviewed precautions, Rehab process, Safety issues, Transfer techniques, Use of adapted equipment Teaching Recipient: Patient Teaching Methods: Demonstration, Discussion Response to Teaching: Verbalize Understanding, Reinforcement Needed OT Custodial Goals Drier And Evaporator Operator Goals Eating (QC): 5 Oral Hygiene (QC): 6 Toileting Hygiene (QC): 5 Shower/Bathe Self (QC): 5 Upper Body Dressing (QC): 5 Lower Body Dressing (QC): 5 On/Off Footwear (QC): 6 1=Demonstrate adherence to instructed precautions during ADL tasks. 2=Patient will verbalize/demonstrate understanding of assistive devices/modifications for ADL. 3=Patient will improve strength/tolerance for activity to enable patient to perform ADL's. OT Education/Plan Discharge Recommendations Plan/Recommendations: Continue POC Treatment Plan/Plan of Care Patient would benefit from OT for education, treatment and training to promote independence in ADL's, mobility, safety and/or upper extremity function for ADL's. Plan of Care: ADL Retraining, Caregiver Training, Cognitive Retraining, Concurrent Therapy, Functional Mobility, Group Exercise/Act as Ind, UE Funct Exercise/Act, UE Neuromus Re-Ed/Coord Treatment Duration: Jul 15, 2022 Frequency: 3 times per week (3-5 times per week) Estimated Hrs Per Day: .25 hour per day Agreement: Yes Rehab Potential: Guarded All needs met Time Start Time: 09:51 Stop Time: 10:02 DATE: Jul 10, 2022 Total Time Billed (hr/min): 11 Billed Treatment Time ADL 11 min LUIS RIOS OT Jul 10, 2022 11:49
--- NOTE | 2022-07-10 13:59 | Physical Therapy Daily Note ---
PT Daily Note-Current Subjective Patient agrees to PT/RT O2 study. Pain Numeric Pain Scale: 0-No Pain Location: No Pain Reported Section J - Health Conditions 1. Rarely or not at all 2. Occasionally 3. Frequently 4. Almost constantly 8. Unable to answer Pain Effect on Sleep: 1 Pain Interference with Therapy: 1 Pain Interference w/Day-to-Day: 1 Mental Status Patient Orientation: Person, Place, Time, Situation Transfers SCALE: Activities may be completed with or without assistive devices. 8-Gxqsaxdpfm-pthqllj completes the activity by him/herself with no assistance from a helper. 5-Set-up or Clean-up Assistance-helper sets up or cleans up; patient completes activity. [place] assists only prior to or following the activity. 4-Supervision or Touching Assistance-helper provides verbal cues and/or touching/steadying and/or contact guard assistance as patient completes activity. Assistance may be provided throughout the activity or intermittently. 3-Partial/Moderate Assistance-helper does LESS THAN HALF the effort. [place] lifts, holds or supports trunk or limbs, but provides less than half the effort. 2-Substantial/Maximal Assistance-helper does MORE THAN HALF the effort. [place] lifts or holds trunk or limbs and provides more than half the effort. 1-Fcxnhkidh-ovjbtc does ALL the effort. Patient does none of the effort to complete the activity. Or, the assistance of 2 or more helpers is required for the patient to complete the activity. If activity was not attempted, code reason: 7-Patient Refused. 9-Not Applicable-not attempted and the patient did not perform the activity before the current illness, exacerbation or injury. 10-Not Attempted due to Environmental Limitations-(lack of equipment, weather restraints, etc.). 88-Not Attempted due to Medical Conditions or Safety Concerns. Sit to Lying (QC): 6 Lying to Sitting/Side of Bed(Q: 6 Sit to Stand (QC): 6 Weight Bearing Right Lower Extremity: Right Full Weight Bearing Left Lower Extremity: Left Full Weight Bearing Gait Training Distance: 500' Walk 10 feet (QC): 6 Walk 50 ft with 2 Turns(QC): 6 Walk 150 ft (QC): 6 Gait Assistive Device: None 2 episodes of slight unsteady gait with self correct Assessment Physician requested PT ambulate patient again on this date. RT present for O2 home study (refer to their noted for results). Patient is currently at independent LOF with all gross motor skills. Family present. PT Revenue Enforcement Collection Agent Goals Revenue Enforcement Collection Agent Goals PT Revenue Enforcement Collection Agent Goals Time Frame: Aug 04, 2022 Roll Left & Right (QC): 3 Sit to Lying (QC): 3 Lying-Sitting on Side/Bed(QC): 3 Sit to Stand (QC): 3 Chair/Heu-ez-Wsqts Xfer(QC): 3 Toilet Transfer (QC): 3 Does the Patient Walk: Yes Walk 10 feet (QC): 3 Walk 50ft with 2 Turns (QC): 3 Walk 150 ft (QC): 3 1 Step (curb) (QC): 2 4 Steps (QC): 2 PT Plan Treatment/Plan Treatment Plan: Continue Plan of Care (x 1 more day) Treatment Plan: Bed Mobility, Education, Functional Activity Mirtha, Functional Strength, Group Therapy, Gait, Safety, Therapeutic Exercise, Transfers Treatment Duration: Aug 04, 2022 Frequency: 6 times per week Estimated Hrs Per Day: .25 hour per day Patient and/or Family Agrees t: Yes Time Time In: 1305 Time Out: 1316 DATE: Jul 10, 2022 Total Billed Treatment Time: 11 Total Billed Treatment 1 visit FA 11 min TOM JEROME PT Jul 10, 2022 13:59
--- NOTE | 2022-07-10 15:27 | Progress Note - Hospitalist ---
Subjective HPI/CC On Admission Date Seen by Provider: Jul 10, 2022 Time Seen by Provider: 11:05 Marcos Crawford is a 62 year old male with H alcohol abuse, tobacco abuse, who presented after a cardiac arrest. He was at the [employer] [place] and was about to play in a tournament. He had reportedly been feeling bad for several days. His teeth are "all rotten" and he was scheduled to have his teeth pulled next Sunday. He obtained and was taking an antibiotic from a farm store. His is unsure what the antibiotics was. She does not think they recommended he take antibiotics. He had been having body aches. She reports that he told her he felt like he was going to . He had been reporting chest pain. He did not want to go to the [employer] but he had already paid for it. He is an every day drinker. His daughter says he drinks "a lot". He reportedly gets shaky when he hasn't had a drink. She does not remember him going a day without a drink. He has never been admitted to the hospital with alcohol withdrawal. He has no known medical conditions. He does not take any medications daily. EMS found him in ventricular fibrillation. ROSC was quickly obtained. He was thought to have ST elevations on the EKG and was taken directly to the central lab technician. Dr. Novak performed left heart cath which showed non-obstructive coronary artery disease and no other cause for his arrest. He was admitted to the ICU. Dr. Novak contacted the hospitalist service to assume care of the patient. Labs and imaging were ordered. TeleICU was consulted. Subjective/Events-last exam He is doing well. He is sitting in his chair. He has his left arm in a sling. He walked with therapy without any assistive device. He has no complaints. Objective Exam Vital Signs Vital Signs Date Time Temp Pulse Resp B/P (MAP) Pulse Ox O2 Delivery O2 Flow Rate FiO2 07/10/22 14:45 95 Room Air 0.00 07/10/22 12:40 67 07/10/22 11:25 36.5 18 146/79 (101) Capillary Refill : NONE General Appearance: No Apparent Distress, WD/WN Respiratory: Lungs Clear, No Respiratory Distress Cardiovascular: Regular Rate, Rhythm, No Murmur Gastrointestinal: Normal Bowel Sounds, Soft Extremity: Normal Inspection, No Pedal Edema Neurologic/Psychiatric: Alert, Normal Mood/Affect Skin: Normal Color, Warm/Dry Results/Procedures Lab Laboratory Tests 07/10/22 04:54 Patient resulted labs reviewed. Imaging: Reviewed Imaging Films, Reviewed Imaging Report Assessment/Plan Assessment and Plan Assess & Plan/Chief Complaint Cardiac arrest Ventricular fibrillation Acute HFrEF HTN Hyponatremia Hypokalemia Alcohol dependence Elevated LFTs Hepatic steatosis Misuse of medication Tobacco abuse No longer requiring oxygen, no requirement per home oxygen evaluation Completed course of Zosyn PT/OT/Speech Cardiology following, left heart cath without obstructive coronary artery disease s/p AICD 07/09 Continue Amiodarone Goal directed medical therapy as tolerated Monitor and correct electrolytes as needed Remove kumar Likely discharge home tomorrow DVT prophylaxis: Lovenox Left lower lobe collapse, resolved Mucus plugging, resolved Endotracheally intubated, resolved Acute respiratory failure with hypoxia and hypercapnia, resolved Hypomagnesemia, resolved Diagnosis/Problems Diagnosis/Problems (1) Cardiac arrest with ventricular fibrillation Status: Acute (2) Acute HFrEF (heart failure with reduced ejection fraction) Status: Acute (3) Acute respiratory failure with hypoxia and hypercapnia Status: Resolved Resolution Date/Time: 07/10/22 @ 15:27 (4) Mucus plug in respiratory tract Status: Resolved Resolution Date/Time: 07/10/22 @ 15:27 (5) Collapse of left lung Status: Resolved Resolution Date/Time: 07/10/22 @ 15:27 (6) Hepatic steatosis Status: Acute (7) Elevated LFTs Status: Resolved Resolution Date/Time: 07/10/22 @ 15:28 (8) Alcohol dependence Status: Acute Qualifiers: Substance use status: in withdrawal Complication of substance-induced condition: with unspecified complication Qualified Codes: F10.239 - Alcohol dependence with withdrawal, unspecified (9) Tobacco abuse Status: Chronic (10) Hypokalemia Status: Acute (11) Hypomagnesemia Status: Resolved Resolution Date/Time: 07/10/22 @ 15:27 (12) Endotracheally intubated Status: Resolved Resolution Date/Time: 07/10/22 @ 15:27 (13) Misuse of medication Status: Acute SINDY ANGLIN MD Jul 10, 2022 15:27
--- NOTE | 2022-07-10 15:43 | Speech Therapy Daily Note ---
Speech Daily Progress Note Subjective Date Seen by Provider: Jul 10, 2022 Time Seen by Provider: 15:00 The patient was seated upright in his bed, awake and alert, upon entrance to his room by the clinician. The patient greeted the clinician appropriately and was agreeable to participation in the skilled dysphagia treatment session. The patient has two family members present at bedside. Objective The patient consumed eight ounces of water (thin liquid) via straw and two saltine crackers. The patient did not display any overt s/s of suspected aspi ration following the swallow and his vocal quality remained consistently clear. The patient has displayed great improvement and progress in the oropharyngeal swallow function. Recommendations: - Regular consistency diet with thin liquids, as tolerated. - Fully upright and alert for P.O. intake. - Small, single bites and sips. - Monitor for s/s of suspected aspiration with P.O. intake. If demonstrated, please contact speech pathology. The results and recommendations were discussed with the patient and placed on the in-room white board immediately following the treatment session. The patient's RN was provided the updated recommendations following completion of the therapy on this date. Assessment Assessment Current Status: Good Progress Treatment Plan Continue Plan of Care Speech Short Term Goals Short Term Goals Short Term Goals 1. The patient, staff, and family members will demonstrate safe swallowing preca utions with 80% accuracy, independently. Speech Mcc Goals Arresting Gear Operator Goals 1. The patient will tolerate the least restrictive diet consistency without s/s of suspected aspiration. Time Frame: Five Days. Speech-Plan Treatment Plan Speech Therapy Treatment Plan: Continue Plan of Care Treatment Duration: Jul 12, 2022 Frequency: 4 times per week Estimated Hrs Per Day: .25 hour per day Rehab Potential: Fair Pt/Family Agrees to Plan: Yes Safety Risks/Education Teaching Recipient: Patient, Family Teaching Methods: Discussion Response to Teaching: Reinforcement Needed Education Topics Provided: Results, Recommendations, Plan of Care, Safe Swallowing Precautions Time Speech Therapy Time In: 15:00 Speech Therapy Time Out: 15:15 DATE: Jul 10, 2022 Total Billed Time: 15 Billed Treatment Time JEFFREY Sánchez ELIZABETH Jul 10, 2022 15:43
--- NOTE | 2022-07-10 18:41 | Progress Note - Cardiology ---
Cardiology SOAP Progress Note Subjective: No cp or palp or syncope or shortness of breath No n/v/d No focal weakness Gen weakness and malaise Objective: I&O/Vital Signs 07/10/22 07/10/22 07/10/22 07/10/22 07:00 07:56 08:00 09:24 Temp 36.0 Pulse 71 70 Resp 18 B/P (MAP) 174/80 (111) Pulse Ox 93 97 O2 Delivery Nasal Cannula Nasal Cannula Nasal Cannula O2 Flow Rate 1.50 1.50 1.50 07/10/22 07/10/22 07/10/22 07/10/22 11:25 12:40 14:45 15:53 Temp 36.5 37.0 Pulse 80 67 87 Resp 18 19 B/P (MAP) 146/79 (101) 106/77 (87) Pulse Ox 98 95 92 O2 Delivery Nasal Cannula Room Air Room Air O2 Flow Rate 1.50 0.00 07/10/22 00:00 Intake Total 665 ml Output Total 400 ml Balance 265 ml Side: left Device Insertion Site: without hematoma Swelling: without swelling Bruising: mild bruising Constitutional: AAO x 3, other (thin) Respiratory: No accessory muscle use, No respiratory distress, No wheezing Cardiovascular: regular rate-rhythm, S1 and S2 Gastrointestional: soft Extremities: No pedal edema; no lower extremity edema bilateral Neurologic/Psychiatric: other (moves all extremities) Skin: normal color; No rash on exposed areas; other (abrasion to face) Results/Procedures: Labs Laboratory Tests 07/10/22 00:03: Glucometer 80 07/10/22 04:54: White Blood Count 11.1H, Red Blood Count 3.66L, Hemoglobin 13.1L, Hematocrit 37L , Mean Corpuscular Volume 101H, Mean Corpuscular Hemoglobin 36H, Mean Corpuscular Hemoglobin Concent 35, Red Cell Distribution Width 12.4, Platelet Count 431H, Mean Platelet Volume 11.0, Immature Granulocyte % (Auto) 1, Neutrophils (%) (Auto) 72, Lymphocytes (%) (Auto) 13, Monocytes (%) (Auto) 12, Eosinophils (%) (Auto) 1, Basophils (%) (Auto) 1, Neutrophils # (Auto) 8.0H, Lymphocytes # (Auto) 1.5, Monocytes # (Auto) 1.3H, Eosinophils # (Auto) 0.2, Basophils # (Auto) 0.1, Immature Granulocyte # (Auto) 0.1, Sodium Level 132L, Potassium Level 3.2L, Chloride Level 99, Carbon Dioxide Level 23, Anion Gap 10, Blood Urea Nitrogen 16, Creatinine 0.69, Estimat Glomerular Filtration Rate 105, BUN/Creatinine Ratio 23, Glucose Level 82, Calcium Level 9.5, Corrected Calcium 9.9, Phosphorus Level 2.5, Magnesium Level 1.7, Total Bilirubin 0.6, Aspartate Amino Transf (AST/SGOT) 30, Alanine Aminotransferase (ALT/SGPT) 35, Alkaline Phosphatase 108, Total Protein 6.7, Albumin 3.5 Microbiology 07/03/22 Blood Culture - Preliminary, Resulted No growth 07/03/22 Urine Culture - Final, Complete NO GROWTH 07/01/22 Gram Stain - Final, Complete 07/01/22 Sputum Culture - Final, Complete Haemophilus influenza YEAST Laboratory Tests 07/09/22 05:03 07/10/22 04:54 A/P: Assessment: Witnessed arrest. Ventricular fibrillation. Single shock. ROSC achieved. EKG showed possible ST elevation in leads V2 and V3 therefore patient was brought directly to the Internet Consultant on 07/02/22. - Coronary angiography on 07-02-[address] Novak did not show any occlusive coronary artery disease. Preserved LV function (however, subsequent echo showed cardiomyopathy). Aortogram did not show any aortic dissection. - Dual chamber ICD implanted on 07/09/22 for secondary prevention Intubated following cardiac arrest - currently extubated Echocardiogram shows EF of 35 to 40%. Global hypokinesis. No LV thrombus noted. No significant valvular heart disease. No pericardial effusion. Acute hypercapnic respiratory failure, improving - CT chest shows left lower lobe collapse/atelectasis. No PE. Positive D- dimer. According to patient is a heavy smoker and alcoholic. Significant electrolyte abnormalities with hypokalemia and hypomagnesemia CT head did not show any significant active intracranial abnormality. Plan: * Continue heart failure meds to the extent tolerated - HTN and no further bradycardia - increase Lisinopril and Coreg doses * D/c amio because ICD now in and amio not prison suitable for him * Continue DVT prophylaxis * Monitor labs and correct any abnormalities * Advised to avoid any alcohol or tobacco use * Device interrogated today and found to be functioning normally THA MURILLO MD FACP FAC CCDS Jul 10, 2022 18:41
[2022-07-10] MEDS: MELATONIN 3 MG TABLET PO SCH (21:05)
[2022-07-11] MEDS: RT-ALBUTEROL/IPRATROPIUM 3 ML (DUONEB) VIAL INH SCH ×2 (02:53→09:47)
[2022-07-11] MEDS: VANCOMYCIN INJECTION 1,000 MG in NS (IVPB) 250 ML IV SCH (03:09)
[2022-07-11 03:16] VITALS: BP 137/67
[2022-07-11 05:50] LABS: ALBUMIN 3.5 GM/DL (3.2-4.5); BILIRUBIN,TOTAL 0.7 MG/DL (0.1-1.0); CALCIUM 9.2 MG/DL (8.5-10.1); CREATININE SERUM 0.72 MG/DL (0.60-1.30); MAGNESIUM 1.9 MG/DL (1.6-2.4); PHOSPHORUS 2.6 MG/DL (2.3-4.7); POTASSIUM 3.9 MMOL/L (3.6-5.0); TOTAL PROTEIN 6.4 GM/DL (6.4-8.2)
[2022-07-11 07:47] VITALS: BP 129/66
--- NOTE | 2022-07-11 08:30 | Cardiology Progress Note ---
Subjective Date Seen by Provider: Jul 11, 2022 Time Seen by Provider: 08:26 Subjective/Events-last exam Patient was seen at bedside, laying down comfortably. No new complain Objective-Cardiology Exam Last Set of Vital Signs Vital Signs 07/11/22 07:47 Temp 37.0 Pulse 74 Resp 18 B/P (MAP) 129/66 (87) Pulse Ox 96 O2 Delivery Nasal Cannula O2 Flow Rate 1.00 I&O Intake and Output 07/11/22 00:00 Intake Total 3980 ml Output Total 2025 ml Balance 1955 ml Intake Oral 3730 ml IV Total 250 ml Output Urine Total 2025 ml # Bowel Movements 2 General: Alert, Oriented X3, Cooperative HEENT: Atraumatic Neck: Supple, No JVD Lungs: Clear to Auscultation, Normal Air Movement Heart: Regular Rate, Normal S1, Normal S2 Abdomen: Normal Bowel Sounds Extremities: No Clubbing, No Cyanosis Skin: No Rashes Neuro: Normal Speech Psych/Mental Status: Mood NL Results Lab Laboratory Tests 07/11/22 05:15 A/P-Cardiology Admission Diagnosis Ventricular fibrillation Cardiac pacemaker/ICD Respiratory failure Tobaccoism Assessment/Plan Ventricular fibrillation, status post single shock Patient was hospitalized and had dual-chamber ICD implanted on July 09, 2022 Site is healing well. Interrogated on July 10, [address] Avelar and reported to have functioning normally Status post respiratory failure after cardiac arrest, currently doing well 2D echo reported ejection fraction 35 to 40% with diffuse hypokinesia, no LV thrombus. No significant valvular disease Cardiac catheterization carried out by Dr. Novak on July 02, 2022 did not show any occlusive coronary artery disease, preserved left ventricular function. Status post acute hypercapnic respiratory failure. Better at this time Managed by medical team History of heavy tobaccoism and alcoholism. Okay for discharge from cardiology standpoint and follow-up with Dr. Gaytan in 1 to 2 weeks FAM SKINNER MD Jul 11, 2022 08:30
[2022-07-11] MEDS: FOLIC ACID 1 MG TAB PO SCH (08:36)
[2022-07-11] MEDS: EMPAGLIFLOZIN 10 MG TABLET (JARDIANCE) PO SCH (08:36)
[2022-07-11] MEDS: ACETAMINOPHEN 500 MG TAB (TYLENOL) PO PRN (08:36)
[2022-07-11] MEDS: SPIRONOLACTONE 25 MG (ALDACTONE) TAB PO SCH (08:36)
[2022-07-11] MEDS: FUROSEMIDE 40 MG (LASIX) TAB PO SCH (08:36)
[2022-07-11] MEDS: NICOTINE 21 MG (NICODERM) PATCH TD SCH (08:40)
[2022-07-11] MEDS ORDERED: PANTOPRAZOLE 40 MG (PROTONIX) TAB PO SCH (09:00)
[2022-07-11] MEDS ORDERED: lisINopril 5 MG (PRINIVIL) TABLET PO SCH (09:00)
[2022-07-11] MEDS ORDERED: EMPA10TA PO (10:46)
[2022-07-11] MEDS ORDERED: FURO40TA4 PO (10:46)
[2022-07-11] MEDS ORDERED: SPIR25TA5 PO (10:46)
[2022-07-11] MEDS ORDERED: CARV6.252 PO (10:46)
[2022-07-11] MEDS ORDERED: LISI5TAB20 PO (10:46)
--- NOTE | 2022-07-11 10:52 | Physical Therapy Daily Note ---
PT Daily Note-Current Subjective Patient states he hopes to go home today. Agrees to PT. Pain Section J - Health Conditions 1. Rarely or not at all 2. Occasionally 3. Frequently 4. Almost constantly 8. Unable to answer Pain Effect on Sleep: 1 Pain Interference with Therapy: 1 Pain Interference w/Day-to-Day: 1 Transfers SCALE: Activities may be completed with or without assistive devices. 8-Wgzobnvkqq-frybtbp completes the activity by him/herself with no assistance from a helper. 5-Set-up or Clean-up Assistance-helper sets up or cleans up; patient completes activity. [place] assists only prior to or following the activity. 4-Supervision or Touching Assistance-helper provides verbal cues and/or touching/steadying and/or contact guard assistance as patient completes activity. Assistance may be provided throughout the activity or intermittently. 3-Partial/Moderate Assistance-helper does LESS THAN HALF the effort. [place] lifts, holds or supports trunk or limbs, but provides less than half the effort. 2-Substantial/Maximal Assistance-helper does MORE THAN HALF the effort. [place] lifts or holds trunk or limbs and provides more than half the effort. 4-Yjzhurpwn-xavdzn does ALL the effort. Patient does none of the effort to compl ete the activity. Or, the assistance of 2 or more helpers is required for the patient to complete the activity. If activity was not attempted, code reason: 7-Patient Refused. 9-Not Applicable-not attempted and the patient did not perform the activity before the current illness, exacerbation or injury. 10-Not Attempted due to Environmental Limitations-(lack of equipment, weather restraints, etc.). 88-Not Attempted due to Medical Conditions or Safety Concerns. Sit to Stand (QC): 6 Weight Bearing Right Lower Extremity: Right Full Weight Bearing Left Lower Extremity: Left Full Weight Bearing Gait Training Distance: >800' Walk 10 feet (QC): 6 Walk 50 ft with 2 Turns(QC): 6 Walk 150 ft (QC): 6 Gait Assistive Device: None safe and functional with no deviation with rapid pace Stair Training Stair Training: Handrails/: No handrail #of Steps: 12 1 Step (curb) (QC): 6 4 Steps (QC): 6 12 Steps (QC): 6 Stairs: Pattern: Reciprocal Assessment Patient is currently at [facility] safely and no longer requires skilled PT intervention at this time. PT to dismiss patient from services. PT Correction Goals Small Engine Trainer Goals PT Correction Goals Time Frame: Aug 04, 2022 Roll Left & Right (QC): 3 Sit to Lying (QC): 3 Lying-Sitting on Side/Bed(QC): 3 Sit to Stand (QC): 3 Chair/Tju-vj-Dcbex Xfer(QC): 3 Toilet Transfer (QC): 3 Does the Patient Walk: Yes Walk 10 feet (QC): 3 Walk 50ft with 2 Turns (QC): 3 Walk 150 ft (QC): 3 1 Step (curb) (QC): 2 4 Steps (QC): 2 PT Plan Treatment/Plan Treatment Plan: Discontinue PT, goals met Treatment Plan: Bed Mobility, Education, Functional Activity Mirtha, Functional Strength, Group Therapy, Gait, Safety, Therapeutic Exercise, Transfers Treatment Duration: Aug 04, 2022 Frequency: 6 times per week Estimated Hrs Per Day: .25 hour per day Patient and/or Family Agrees t: Yes Time Time In: 1030 Time Out: 1038 DATE: Jul 11, 2022 Total Billed Treatment Time: 8 Total Billed Treatment 1 visit FA 8 min TOM JEROME PT Jul 11, 2022 10:52
[2022-07-11 12:00] VITALS: BP 129/66
--- NOTE | 2022-07-11 16:35 | Discharge Summary ---
Discharge Summary Hospital Course Problems/Dx: (1) Cardiac arrest with ventricular fibrillation Status: Acute (2) Acute HFrEF (heart failure with reduced ejection fraction) Status: Acute (3) Acute respiratory failure with hypoxia and hypercapnia Status: Resolved (4) Mucus plug in respiratory tract Status: Resolved (5) Collapse of left lung Status: Resolved (6) Hepatic steatosis Status: Acute (7) Elevated LFTs Status: Resolved (8) Alcohol dependence Status: Acute Qualifiers: Qualified Codes: F10.239 - Alcohol dependence with withdrawal, unspecified (9) Tobacco abuse Status: Chronic (10) Hypokalemia Status: Acute (11) Hypomagnesemia Status: Resolved (12) Endotracheally intubated Status: Resolved (13) Misuse of medication Status: Acute Hospital Course Date of Admission: July 01, 2022 at 11:28 Admission Diagnosis : Cardiac arrest due to ventricular fibrillation Family Physician/Provider: EloisaLocal Physician Date of Discharge: 07/11/22 Discharge Diagnosis: Cardiac arrest due to ventricular fibrillation Hospital Course: Marcos Crawford is a 62 year old male with H alcohol abuse, tobacco abuse, who presented after a sudden cardiac arrest. 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 He had minimal down time. Chest compressions were started immediately. He was in VFib and received one shock with ROSC achieved. He was intubated. An EKG showed STEMI. He was taken directly to the builder's labourer. A left heart cath showed no significant coronary artery disease. A workup was performed and there was no significant abnormality to account for his cardiac arrest. He did have a slight metabolic acidosis. He also had mild electrolyte abnormalities. He had a chest xray which showed left lung collapse. This resolved spontaneously with breathing treatments and mechanical ventilation. Surgery was consulted for possible bronchoscopy but this was not needed. His family reported that he had been taking fish Amoxicillin from a pet store due to concern for tooth abscess. They also reported that he is a significant alcohol drinker. His alcohol level was undetectable on arrival. It was thought that he could have had an alcohol withdrawal seizure and aspiration which led to his arrest. Family stated that no one on the scene witnessed any evidence of seizure-like activity. A CT showed no evidence of PE. He remained neurologically intact and there was no evidence of acute stroke. He improved and was able to be extubated. He worked with therapy and was ambulating independently. Cardiology performed a defibrillator placement due to his sudden cardiac arrest with VFib. He needs to establish with a primary care physician and he requested Dr. Sofia at [facility]. He will also follow up with Dr. Gaytan in a week or two. He was discharged home in stable condition. Labs and Pending Lab Test: Laboratory Tests 07/11/22 05:15: Sodium Level 132L, Potassium Level 3.9, Chloride Level 100, Carbon Dioxide Level 21, Anion Gap 11, Blood Urea Nitrogen 14, Creatinine 0.72, Estimat Glomerular Filtration Rate 104, BUN/Creatinine Ratio 19, Glucose Level 80, Calcium Level 9.2, Corrected Calcium 9.6, Phosphorus Level 2.6, Magnesium Level 1.9, Total Bilirubin 0.7, Aspartate Amino Transf (AST/SGOT) 24, Alanine Aminotransferase (ALT/SGPT) 27, Alkaline Phosphatase 103, Total Protein 6.4, Albumin 3.5 Microbiology 07/03/22 Blood Culture - Final, Complete No growth 07/03/22 Urine Culture - Final, Complete NO GROWTH 07/01/22 Gram Stain - Final, Complete 07/01/22 Sputum Culture - Final, Complete Haemophilus influenza YEAST Home Meds Active Jardiance (Empagliflozin) 10 Mg Tablet 10 Mg PO DAILY 30 Days Furosemide 40 Mg Tablet 40 Mg PO DAILY 30 Days Spironolactone 25 Mg Tablet 25 Mg PO DAILY 30 Days Lisinopril 5 Mg Tablet 5 Mg PO DAILY 30 Days Carvedilol 6.25 Mg Tablet 6.25 Mg PO BID 30 Days Reported Tylenol Extra Strength (Acetaminophen) 500 Mg Tablet 1,000 Mg PO Q8H PRN Ibuprofen 200 Mg Tablet 600 Mg PO Q8H PRN Assessment/Pt Instructions See instructions Discharge Planning: >30 minutes discharge planning Discharge Instructions Discharge Diet: No Restrictions Activity as Tolerated: Yes Consultations Cardiology, TeleICU Discharge Physical Examination Vital Signs Vital Signs Date Time Temp Pulse Resp B/P (MAP) Pulse Ox O2 Delivery O2 Flow Rate FiO2 07/11/22 12:00 37.0 74 18 129/66 94 Room Air 0.00 General Appearance: No Apparent Distress, WD/WN Respiratory: Lungs Clear, No Respiratory Distress Cardiovascular: Regular Rate, Rhythm, No Murmur Gastrointestinal: Normal Bowel Sounds, Soft Extremity: Normal Inspection, No Pedal Edema Skin: Normal Color, Warm/Dry Neurologic/Psychiatric: Alert, Oriented x3, No Motor/Sensory Deficits, Normal Mood/Affect Allergies: Coded Allergies: amoxicillin (Verified Allergy, Unknown, see comments, 07/03/22) was taking "fishbiotic- amoxicillin 500mg" and suffered cardiac arrest- unsure if related. Posion control recommended not given amoxil again Copy Copies To 1: [facility] [place] Date of Admission July 01, 2022 at 11:28 Date of Discharge Jul 11, 2022 at 11:08 Discharge Date: Jul 11, 2022 Discharge Time: 11:08 Admission Diagnosis Cardiac arrest with ventricular fibrillation Consults/Procedures Consulations Cardiology, TeleICU Procedures Defibrillator Discharge Diagnosis Cardiac arrest Ventricular fibrillation Acute HFrEF HTN Hyponatremia Hypokalemia Alcohol dependence Elevated LFTs Hepatic steatosis Misuse of medication Tobacco abuse (1) Cardiac arrest with ventricular fibrillation Status: Acute (2) Acute HFrEF (heart failure with reduced ejection fraction) Status: Acute (3) Acute respiratory failure with hypoxia and hypercapnia Status: Resolved (4) Mucus plug in respiratory tract Status: Resolved (5) Collapse of left lung Status: Resolved (6) Hepatic steatosis Status: Acute (7) Elevated LFTs Status: Resolved (8) Alcohol dependence Status: Acute Qualifiers: Qualified Codes: F10.239 - Alcohol dependence with withdrawal, unspecified (9) Tobacco abuse Status: Chronic (10) Hypokalemia Status: Acute (11) Hypomagnesemia Status: Resolved (12) Endotracheally intubated Status: Resolved (13) Misuse of medication Status: Acute SINDY ANGLIN MD Jul 11, 2022 16:34
--- NOTE | 2022-07-12 14:15 | Conscious Sedation/ASA ---
Moderate Sedation PreProcedure ASA Score Airway Lungs Heart ASA score ASA 1: a normal healthy patient ASA 2: a patient with a mild systemic disease (mid diabetes, controlled hypertension, obesity ASA 3: a patient with a severe systemic disease that limits activity (angina, COPD, prior Myocardial infarction) ASA 4: a patient with an incapacitating disease that is a constant threat to life (CHF, renal failure) ASA 5: a moribund patient not expected to survive 24 hrs. (ruptured aneurysm) ASA 6: a declared brain- patient whose organs are being harvested. For emergent operations, add the letter E after the classification Sedation Plan The patient is an appropriate candidate to undergo the planned procedure, sedation, and anesthesia. The patient immediately re-assessed prior to indication. LYNN,FebJul 12, 2022 14:15
== END 2022-07-11 11:08 | disposition home or self-care (01) | DRG 224 ==
LOC: EDBD 10:42 → CATH 10:42 → ICU 11:28 → 4TH 07-08 12:56
PROVIDERS: ADMIT Internal Medicine; ATTEND Internal Medicine
PROC: 4A023N7 Measurement of Cardiac Sampling and Pressure, Left Heart, Percutaneous Approach (ICD-10-PCS; principal; 2022-07-01)
PROC: B2111ZZ Fluoroscopy of Multiple Coronary Arteries using Low Osmolar Contrast (ICD-10-PCS; 2022-07-01)
PROC: B3101ZZ Fluoroscopy of Thoracic Aorta using Low Osmolar Contrast (ICD-10-PCS; 2022-07-01)
PROC: 5A1945Z Respiratory Ventilation, 24-96 Consecutive Hours (ICD-10-PCS; 2022-07-01)
PROC: 0BH17EZ Insertion of Endotracheal Airway into Trachea, Via Natural or Artificial Opening (ICD-10-PCS; 2022-07-01)
PROC: 5A0945A Assistance with Respiratory Ventilation, 24-96 Consecutive Hours, High Flow/Velocity Cannula (ICD-10-PCS; 2022-07-04)
PROC: 0JH608Z Insertion of Defibrillator Generator into Chest Subcutaneous Tissue and Fascia, Open Approach (ICD-10-PCS; 2022-07-09)
PROC: 02H60KZ Insertion of Defibrillator Lead into Right Atrium, Open Approach (ICD-10-PCS; 2022-07-09)
PROC: 02HK3KZ Insertion of Defibrillator Lead into Right Ventricle, Percutaneous Approach (ICD-10-PCS; 2022-07-09)
DX: I49.01 Ventricular fibrillation (principal); I21.3 ST elevation (STEMI) myocardial infarction of unspecified site; I50.21 Acute systolic (congestive) heart failure; J96.02 Acute respiratory failure with hypercapnia; J96.01 Acute respiratory failure with hypoxia; J98.11 Atelectasis; G93.40 Encephalopathy, unspecified; J98.19 Other pulmonary collapse; F10.239 Alcohol dependence with withdrawal, unspecified; E87.1 Hypo-osmolality and hyponatremia; I46.9 Cardiac arrest, cause unspecified; I11.0 Hypertensive heart disease with heart failure; F17.210 Nicotine dependence, cigarettes, uncomplicated; T17.990A Other foreign object in respiratory tract, part unspecified in causing asphyxiation, initial encounter; E87.6 Hypokalemia; E83.42 Hypomagnesemia; F10.20 Alcohol dependence, uncomplicated; Y90.0 Blood alcohol level of less than 20 mg/100 ml; K76.0 Fatty (change of) liver, not elsewhere classified
CPT/HCPCS: 33249; 36221; 36415; 36600; 70450; 71045; 71046; 71275; 73030; 80048; 80053; 80306; 80320; 81000; 82550; 82805; 82947; 83605; 83735; 83880; 84100; 84132; 84478; 84484; 85007; 85025; 85027; 85379; 85610; 85730; 87040; 87070; 87077; 87081; 87088; 87205; 93005; 93306; 93458; 94002; 94003; 94640; 94668; 94760; 94761

== ENCOUNTER 2022-08-31 10:51 | Emergency (ER) | payer SELFPAY ==
[~2022-08-31 10:51] MED LIST: ACET-2267 PO; CARV6.252 PO; DIPH25TA65 PO; EMPA10TA PO; FURO40TA4 PO; IBUP-2473 PO; LISI5TAB20 PO; SPIR25TA5 PO
--- NOTE | 2022-08-31 11:37 | ED Cardiac General ---
History of Present Illness General Chief Complaint: Cardiac/General Problems Stated Complaint: DEFIBRILLATOR CONCERNS Source: patient Exam Limitations: no limitations History of Present Illness Date Seen by Provider: Aug 31, 2022 Time Seen by Provider: 11:34 Initial Comments Patient is a 62-year-old male who presents the ED for pressure around his defibrillator. Patient states he had a defibrillator placed in July by Dr. Avelar. Patient suffered a cardiac arrest July 01. Patient states over the past few days he has had some intermittent pressure around his defibrillator. He is concerned that the defibrillator is protruding out. Patient states symptoms seem to be worse with movement when he working underneath crawlspace. denies of any redness or swelling. No specific shortness of breath, cough, nausea with the chest pressure. Not currently on anticoagulant. Called his food editor was recommended come to ED. Patient denies visual changes, headache, dizziness, unilateral muscle weakness or sensory changes Allergies and Home Medications Allergies Coded Allergies: amoxicillin (Verified Allergy, Unknown, see comments, 07/03/22) was taking "fishbiotic- amoxicillin 500mg" and suffered cardiac arrest- unsure if related. Posion control recommended not given amoxil again Patient Home Medication List Home Medication List Reviewed: Yes Acetaminophen (Tylenol Extra Strength) 500 Mg Tablet, 1,000 MG PO Q8H PRN for PAIN-MILD (1-4), (Reported) Entered as Reported by: AMI WAHL on 07/04/22 1308 Carvedilol (Carvedilol) 6.25 Mg Tablet, 6.25 MG PO BID Prescribed by: SINDY ANGLIN on 07/11/22 1046 Empagliflozin (Jardiance) 10 Mg Tablet, 10 MG PO DAILY Prescribed by: SINDY ANGLIN on 07/11/22 1046 Furosemide (Furosemide) 40 Mg Tablet, 40 MG PO DAILY Prescribed by: SINDY AGNLIN on 07/11/22 1046 Ibuprofen (Ibuprofen) 200 Mg Tablet, 600 MG PO Q8H PRN for PAIN-MILD (1-4), (Reported) Entered as Reported by: AMI WAHL on 07/04/22 1308 Lisinopril (Lisinopril) 5 Mg Tablet, 5 MG PO DAILY Prescribed by: SINDY ANGLIN on 07/11/22 1046 Spironolactone (Spironolactone) 25 Mg Tablet, 25 MG PO DAILY Prescribed by: SINDY ANGLIN on 07/11/22 1046 Review of Systems Review of Systems Constitutional: No chills, No diaphoresis, No malaise, No weakness EENTM: No Double Vision, No Eye Pain Respiratory: Denies Cough, Denies Orthopnea, Denies Shortness of Air, Denies SOA at Rest Cardiovascular: Chest Pain Gastrointestinal: Denies Abdominal Pain, Denies Diarrhea, Denies Nausea, Denies Vomiting Genitourinary: Denies Burning, Denies Discharge, Denies Drainage Musculoskeletal: No back pain, No joint pain Skin: No change in color, No change in hair/nails All Other Systems Reviewed Negative Unless Noted: Yes Past Ffrzlry-Yvxtsx-Vozydv Hx Past Medical History Respiratory: Yes COPD Cardiac: Yes Angina, Hypertension Neurological: No Genitourinary: No Family Medical History Cancer, Diabetes, Hypertension, Other Conditions/Hx Physical Exam Vital Signs Vital Signs - First Documented 08/31/22 11:00 Temp 36.7 Pulse 76 Resp 16 B/P (MAP) 135/93 (107) Pulse Ox 98 O2 Delivery Room Air Capillary Refill : Height, Weight, BMI Height: '" Weight: lbs. oz. kg; 24.45 BMI Method: General Appearance: No Apparent Distress, WD/WN HEENT: PERRL/EOMI, TMs Normal, Normal ENT Inspection, Pharynx Normal Neck: Full Range of Motion, Normal Inspection, Non Tender, Carotid Bruit Respiratory: Chest Non Tender, Lungs Clear, Normal Breath Sounds, No Accessory Muscle Use, No Respiratory Distress Cardiovascular: Regular Rate, Rhythm, No Edema, No Gallop, No JVD Gastrointestinal: Normal Bowel Sounds, No Organomegaly, No Pulsatile Mass Extremity: Normal Capillary Refill, Normal Inspection, Normal Range of Motion, Non Tender Neurologic/Psychiatric: Alert, Oriented x3, No Motor/Sensory Deficits, Normal Mood/Affect, carpet tile layer II-XII Norm as Tested Skin: Normal Color, Warm/Dry Procedures/Interventions Date of ETT Placement: July 01, 2022 Progress/Results/Core Measures Results/Orders Lab Results Laboratory Tests Test 08/31/22 11:30 Range/Units White Blood Count 7.6 4.3-11.0 10^3/uL Red Blood Count 3.74 L 4.30-5.52 10^6/uL Hemoglobin 12.2 L 13.3-17.7 g/dL Hematocrit 37 L 40-54 % Mean Corpuscular Volume 98 80-99 fL Mean Corpuscular Hemoglobin 33 25-34 pg Mean Corpuscular Hemoglobin Concent 33 32-36 g/dL Red Cell Distribution Width 12.1 10.0-14.5 % Platelet Count 257 130-400 10^3/uL Mean Platelet Volume 10.7 9.0-12.2 fL Immature Granulocyte % (Auto) 0 % Neutrophils (%) (Auto) 57 42-75 % Lymphocytes (%) (Auto) 29 12-44 % Monocytes (%) (Auto) 8 0-12 % Eosinophils (%) (Auto) 4 0-10 % Basophils (%) (Auto) 1 0-10 % Neutrophils # (Auto) 4.3 1.8-7.8 10^3/uL Lymphocytes # (Auto) 2.2 1.0-4.0 10^3/uL Monocytes # (Auto) 0.6 0.0-1.0 10^3/uL Eosinophils # (Auto) 0.3 0.0-0.3 10^3/uL Basophils # (Auto) 0.1 0.0-0.1 10^3/uL Immature Granulocyte # (Auto) 0.0 0.0-0.1 10^3/uL Sodium Level 138 135-145 MMOL/L Potassium Level 4.2 3.6-5.0 MMOL/L Chloride Level 107 98-107 MMOL/L Carbon Dioxide Level 21 21-32 MMOL/L Anion Gap 10 5-14 MMOL/L Blood Urea Nitrogen 26 H 7-18 MG/DL Creatinine 0.95 0.60-1.30 MG/DL Estimat Glomerular Filtration Rate 91 BUN/Creatinine Ratio 27 Glucose Level 89 70-105 MG/DL Calcium Level 10.1 8.5-10.1 MG/DL Corrected Calcium 9.9 8.5-10.1 MG/DL Magnesium Level 2.1 1.6-2.4 MG/DL Total Bilirubin 0.3 0.1-1.0 MG/DL Aspartate Amino Transf (AST/SGOT) 16 5-34 U/L Alanine Aminotransferase (ALT/SGPT) 14 0-55 U/L Alkaline Phosphatase 65 40-136 U/L Troponin I < 0.028 <0.028 NG/ML Total Protein 7.0 6.4-8.2 GM/DL Albumin 4.3 3.2-4.5 GM/DL My Orders Orders - GUI DACOSTA Duglas PA Ekg Tracing (08/31/22 11:20) Cbc With Automated Diff (08/31/22 11:33) Comprehensive Metabolic Panel (08/31/22 11:33) Magnesium (08/31/22 11:33) Troponin I [place] (08/31/22 11:33) Chest 1 View, Ap/Pa Only (08/31/22 11:33) Vital Signs/I&O 08/31/22 08/31/22 11:00 12:18 Temp 36.7 36.4 Pulse 76 68 Resp 16 18 B/P (MAP) 135/93 (107) 117/94 Pulse Ox 98 98 O2 Delivery Room Air Room Air Comment Sinus rhythm with first-degree AV block, left bundle branch block, 69 bpm, QRS duration 150 MS, QTc 438 MS. Departure Communication (PCP) Reviewed previous ER visits, H&P, lab testing. Differential diagnosis, chest wall pain, defibrillator malfunction, ACS, pneumothorax . cardiac arrest July 01. This required a defibrillator. Patient is complaining of pain around his defibrillator. This seems to be worse when crawling underneath houses such as movement. No specific chest pain or shortness of breath. States that the pressure is around the defibrillator. Patient does not appear in acute distress. Interrogated his pacemaker and received a phone call which did not note any arrhythmias or malfunction. CBC, CMP, troponin and chest x-ray. EKG showed sinus rhythm with first-degree AV block, left bundle branch block. 69 bpm. This appears to be a chronic left bundle branch block. Reviewed EKG from July 03 with similar findings. Lab work was grossly unremarkable. Normal troponin. Chest ray was negative for pneumothorax. Unremarkable leads. Healing surgical wound to the left upper chest. No tenderness to palpate. No surrounding redness or swelling suggesting cellulitis or infection. Discussed with patient this is likely more muscular secondary to the defibrillator. If continue having symptoms or pain recommend following up with cardiology Dr. Santiago. Does not appear to be cardiac in nature. If any worsening symptoms return back to ED for further evaluation. Patient refusing anything for pain Impression Primary Impression: Chest wall pain Disposition: HOME, SELF-CARE Condition: Stable Departure-Patient Inst. Decision time for Depature: 12:16 Referrals: TALIA STRICKLAND APRN (PCP) Primary Care Physician FAM SANTIAGO MD Patient Instructions: Chest Pain That Is Not Caused by the Heart (DC) Add. Discharge Instructions: Recommend following up with Dr. Santiago. Cardiac work-up unremarkable. Defibrillator seems to be working properly. If any increasing or changing symptoms return back to ED All discharge instructions reviewed with patient and/or family. Voiced understanding. GUI DACOSTA Aug 31, 2022 11:37
[2022-08-31 11:39] LABS: BASOPHILS # (AUTO) 0.1 10^3/uL (0.0-0.1); BASOPHILS % (AUTO) 1 % (0-10); EOSINOPHILS # (AUTO) 0.3 10^3/uL (0.0-0.3); EOSINOPHILS % (AUTO) 4 % (0-10); HEMATOCRIT 37 % (40-54); HEMOGLOBIN 12.2 g/dL (13.3-17.7); LYMPHOCYTES # (AUTO) 2.2 10^3/uL (1.0-4.0); LYMPHOCYTES % (AUTO) 29 % (12-44); MEAN CORPUSCULAR HEMOGLOBIN 33 pg (25-34); MEAN CORPUSCULAR HGB CONC 33 g/dL (32-36); MEAN CORPUSCULAR VOLUME 98 fL (80-99); MEAN PLATELET VOLUME 10.7 fL (9.0-12.2); MONOCYTES # (AUTO) 0.6 10^3/uL (0.0-1.0); MONOCYTES % (AUTO) 8 % (0-12); NEUTROPHILS # (AUTO) 4.3 10^3/uL (1.8-7.8); NEUTROPHILS % (AUTO) 57 % (42-75); PLATELET COUNT 257 10^3/uL (130-400); WHITE BLOOD COUNT 7.6 10^3/uL (4.3-11.0)
[2022-08-31 11:47] LABS: ALBUMIN 4.3 GM/DL (3.2-4.5); CHLORIDE 107 MMOL/L (98-107); POTASSIUM 4.2 MMOL/L (3.6-5.0); SODIUM 138 MMOL/L (135-145)
[2022-08-31 11:48] LABS: CALCIUM 10.1 MG/DL (8.5-10.1)
[2022-08-31 11:49] LABS: GLUCOSE 89 MG/DL (70-105)
[2022-08-31 11:50] LABS: CARBON DIOXIDE 21 MMOL/L (21-32)
[2022-08-31 11:51] LABS: BILIRUBIN,TOTAL 0.3 MG/DL (0.1-1.0)
[2022-08-31 11:53] LABS: ALKALINE PHOSPHATASE 65 U/L (40-136); CREATININE SERUM 0.95 MG/DL (0.60-1.30); GFR ESTIMATED 91
[2022-08-31 11:54] LABS: BUN/CREATININE RATIO 27
[2022-08-31 11:56] LABS: ALANINE AMINOTRANSFERASE 14 U/L (0-55); MAGNESIUM 2.1 MG/DL (1.6-2.4)
--- NOTE | 2022-08-31 12:02 | Diagnostic Imaging Report ---
INDICATION: Chest pain, defibrillator malfunction. FINDINGS: The device projects over the left chest, the leads are unremarkable. The lungs are clear, although hyperexpanded. No failure, effusion, or pneumothorax. IMPRESSION: No acute-appearing abnormality. Dictated by: Dictated on workstation # [id number]
[2022-08-31 12:18] VITALS: BP 117/94
== END 2022-08-31 12:22 | disposition home or self-care (01) ==
LOC: EDUNIT# 10:51 → ER 10:55
DX: R07.89 Other chest pain (principal); I44.0 Atrioventricular block, first degree; I44.7 Left bundle-branch block, unspecified; Z95.810 Presence of automatic (implantable) cardiac defibrillator; Z86.74 Personal history of sudden cardiac arrest
CPT/HCPCS: 36415; 71045; 80053; 83735; 84484; 85025; 93005